=== PATIENT | female | born 1955 | race Caucasian/White ===

== ENCOUNTER 2017-03-20 19:21 | Emergency (ER) | payer OTHER ==
[2017-03-20] MEDS ORDERED: Albuterol/Ipratropium NEB.SOL* Albuterol 2.5 MG/Ipratropium 0.5 MG 3 ML INH ONE (19:41)
[2017-03-20] MEDS ORDERED: methylPREDNISolone 125 MG* 2 ML VIAL IV ONE (19:41)
[2017-03-20] MEDS ORDERED: NS 0.9% 1000 ML* 1,000 ML IV ONE (19:41)
[2017-03-20 19:58] LABS: Hematocrit 35 % (35-47); Hemoglobin 11.6 g/dl (12.0-16.0); Mean Corpuscular HGB Conc 33 g/dl (31-36); Mean Corpuscular Hemoglobin 31 pg (27-31); Mean Corpuscular Volume 94 fL (80-97); Mean Platelet Volume 9 um3 (7.4-10.4); Red Blood Count 3.75 10^6/ul (4.0-5.4); Red Cell Distribution Width 14 % (10.5-15); White Blood Count 13.7 10^3/ul (3.5-10.8)
--- NOTE | 2017-03-20 20:14 | RAD ---
HISTORY: Shortness of breath COMPARISONS: September 29, 2015 VIEWS: 4: Frontal dual-energy and lateral views of the chest. FINDINGS: CARDIOMEDIASTINAL SILHOUETTE: The cardiomediastinal silhouette is normal. GI: The gi are normal. PLEURA: The costophrenic angles are sharp. No pleural abnormalities are noted. LUNG PARENCHYMA: There is hyperinflation with flattening of the diaphragm and expansion of the AP diameter of the chest. ABDOMEN: The upper abdomen is clear. There is no subphrenic gas. BONES AND SOFT TISSUES: There is diffuse osteopenia. There are chronic compression deformities of the thoracic spine. The patient is status post anterior cervical fusion. OTHER: None. IMPRESSION: HYPERINFLATION, CONSISTENT WITH COPD. NO ACTIVE CARDIOPULMONARY DISEASE.
[2017-03-20 20:16] LABS: BUN/Creatinine Ratio 17.9 (8-20); Calcium 9.6 mg/dL (8.6-10.3); EGFR African American 140.6 (>60); EGFR Non-African American 109.3 (>60); Globulin 2.3 g/dL (2-4); Total Bilirubin 0.3 mg/dL (0.2-1.0); Total Protein 6.3 g/dL (6.4-8.9)
[2017-03-20] MEDS ORDERED: clonazePAM TAB(*) 0.5 MG PO ONE (20:17)
[2017-03-20] MEDS ORDERED: Ondansetron INJ* 2 MG/ML VIAL IV ONE (20:29)
--- NOTE | 2017-03-20 21:31 | ED ---
Matt Chowdhury Rebecca, scribed for Anmol Delgado MD on 03/20/17 at 1942 . Shortness of Breath - HPI Summary HPI Summary: Pt is a 61 y/o F BIBA who presents to ED c/o SOB. Pt reports intermittent, worsening SOB over the last few weeks characterized as dyspnea at rest. Treated with Mucinex SENIOR ACCOUNT CLERK. Pt reports that she was particularly busy today, which may have aggravated by. Sx alleviated by nothing. Pt reports subjective low-grade fever and associated diffuse chest pain characterized as stinging that is present when she experiences SOB. Pt states her "chest starts hurting because I get upset" and that the pain is currently moderate, ranked 6/10. Additionally notes hypertension SENIOR ACCOUNT CLERK, stating that her home nurse was taking her blood pressure tonight and saw it elevate up to about 150 systolic. Pt has been evaluated for these sx multiple times in [place] and saw her PCP earlier today. PMHx COPD and is on 2L O2 per Os at home. - History of Current Complaint Time Seen by Provider: 03/20/17 19:33 Hx Obtained From: Patient Onset/Duration: Still Present, Worse Since - A few weeks ago Timing: Intermittent Episodes Lasting: Current Severity: Moderate - 6/10 Dyspnea At: Rest Alleviating Factors: Nothing Associated Signs & Symptoms: Chest Pain Unrelated to Cough, Fever - Allergy/Home Medications Allergies/Adverse Reactions: Allergies Allergy/AdvReac Type Severity Reaction Status Date / Time Cephalexin [From Keflex] Allergy Intermediate Rash Verified 04/27/16 14:12 Vancomycin Allergy Intermediate Rash Verified 04/27/16 14:12 Bupropion [From Wellbutrin] AdvReac Severe Agitation Verified 04/27/16 14:12 Metronidazole AdvReac Severe See Comment Verified 04/27/16 14:12 Levofloxacin [From Levaquin] AdvReac Intermediate Diarrhea Verified 04/27/16 14: 12 Fluticasone AdvReac Mild See Comment Verified 04/27/16 14:12 [From Advair Diskus] Salmeterol AdvReac Mild See Comment Verified 04/27/16 14:12 [From Advair Diskus] Lorazepam [From Ativan] AdvReac Unknown HALLUCINATE Verified 04/27/16 14:12 PMH/Surg Hx/FS Hx/Imm Hx Endocrine/Hematology History: Denies: Hx Diabetes, Hx Thyroid Disease Cardiovascular History: Reports: Other Cardiovascular Problems/Disorders - "Reversed heart valves" per Pt. Denies: Hx Congestive Heart Failure, Hx Hypertension, Hx Pacemaker/ICD Respiratory History: Reports: Hx Asthma, Hx Chronic Bronchitis, Hx Chronic Obstructive Pulmonary Disease (COPD), Hx Pneumonia Denies: Other Respiratory Problems/Disorders GI History: Reports: Hx Gastroesophageal Reflux Disease, Other GI Disorders - hemorrhoids with warts Denies: Hx Ulcer History: Denies: Hx Renal Disease Musculoskeletal History: Reports: Hx Arthritis - BACK, KNEES AND ELBOWS, Hx Back Problems, Hx Osteoporosis, Hx Scoliosis, Other Musculoskeletal History - T7 COMPRESSION FRACTURE PER PATIENT Sensory History: Reports: Hx Cataracts - DASHA, Hx Contacts or Glasses Denies: Hx Hearing Aid Opthamlomology History: Reports: Hx Cataracts - DASHA, Hx Contacts or Glasses Neurological History: Reports: Hx Nerve Disease - NEUOPATHY, Hx Seizures - AGE 7 Denies: Other Neuro Impairments/Disorders Psychiatric History: Reports: Hx Anxiety - HX OF - NO MEDICATION FOR Denies: Hx Panic Disorder - Surgical History Surgery Procedure, Year, and Place: LAMINECTOMY 2012. CERVICAL SPINE FUSION- [facility] – [place]. TONSILECTOMY- A CHILD. APPENDECTOMY-AGE 16. GALL BLADDER REMOVAL- 1991. [id number]. SEPTOPLASTY [id number]. CYST REMOVED FROM THYROID- 2010-[facility] – [place]. TUBAL LIGATION-[facility] – [place]. CYST REMOVED FROM RT OVARY X2. Rt CATARACT Hx Anesthesia Reactions: No - Immunization History Date of Tetanus Vaccine: Unk Date of Influenza Vaccine: Fall 2014 Infectious Disease History: Reports: Hx Clostridium Difficile Denies: Hx Hepatitis, Hx Human Immunodeficiency Virus (HIV), Hx of Known/ Suspected MRSA - Family History Known Family History: Positive: Hypertension - Social History Alcohol Use: None Substance Use Type: Reports: None Hx Tobacco Use: Yes Smoking Status (MU): Light Every Day Tobacco Smoker Type: Cigarettes Amount Used/How Often: 2-3 cigs a day Length of Time of Smoking/Using Tobacco: 30+ yrs Have You Smoked in the Last Year: Yes Review of Systems Positive: Fever - subjective, low-grade fever, Other - Hypertensive SENIOR ACCOUNT CLERK Positive: Chest Pain - diffuse, intermittent stinging Positive: Shortness Of Breath All Other Systems Reviewed And Are Negative: Yes Physical Exam Triage Information Reviewed: Yes Vital Signs Reviewed: Yes Appearance: Positive: No Pain Distress, Thin, Cachectic Skin: Positive: Warm Head/Face: Positive: Normal Head/Face Inspection Eyes: Positive: BLADE ENT: Positive: Hearing grossly normal Neck: Positive: Supple Respiratory/Lung Sounds: Positive: Clear to Auscultation, Decreased Breath Sounds Cardiovascular: Positive: RRR Abdomen Description: Positive: Nontender, Soft Bowel Sounds: Positive: Present Musculoskeletal: Positive: Strength/ROM Intact Neurological: Positive: Alert, Oriented to Person Place, Time Psychiatric: Positive: Affect/Mood Appropriate Diagnostics - Laboratory Result Diagrams: 03/20/17 19:50 03/20/17 19:50 Lab Statement: Any lab studies that have been ordered have been reviewed, and results considered in the medical decision making process. - Radiology CXR Xray Interpretation: No Acute Changes - HYPERINFLATION, CONSISTENT WITH COPD. NO ACTIVE CARDIOPULMONARY DISEASE. ED physician reviewed this radiology report and agrees. Radiology Interpretation Completed By: Radiologist - EKG 2026 Cardiac Rate: Tachycardia - 101 BPM EKG Rhythm: Sinus Tachycardia EKG Interpretation: Normal Re-Evaluation - Re-Evaluation First Eval Re-Evaluation Time: 21:05 Change: Improved Comment: Pt's sx have improved. Course/Dx - Course Assessment/Plan: Pt is a 61 y/o F BIBA who presents to ED c/o SOB. Pt reports intermittent, worsening SOB over the last few weeks characterized as dyspnea at rest. Treated with Mucinex SENIOR ACCOUNT CLERK. Pt reports that she was particularly busy today , which may have aggravated by. Pt reports subjective low-grade fever and associated diffuse chest pain characterized as stinging that is present when she experiences SOB. Pt states her "chest starts hurting because I get upset." Additionally notes hypertension SENIOR ACCOUNT CLERK, stating that her home nurse was taking her blood pressure tonight and saw it elevate up to about 150 systolic. Pt has been evaluated for these sx multiple times in [place] and saw her PCP earlier today. PMHx COPD and is on 2L O2 per Os at home. CXR reveals HYPERINFLATION, CONSISTENT WITH COPD and NO ACTIVE CARDIOPULMONARY DISEASE. EKG reveals sinus rhythm. WBC of 13.7, troponin of 0.00. In the ED course, the pt received Duoneb , Klonopin, Solu-Medrol, Zofran and fluids which improved sx. She will be D/C to home with Dx of COPD excerbation and Rx for Prednisone with a follow up with her PCP. She understands and agrees. Elevated BP noted and advised to f/u with PCP. - Diagnoses Provider Diagnoses: COPD exacerbation Discharge - Discharge Plan Condition: Stable Disposition: HOME Prescriptions: predniSONE TAB* [Deltasone TAB*] 40 mg PO DAILY #8 tab Patient Education Materials: COPD (Chronic Obstructive Pulmonary Disease) (ED) Referrals: Harrison Meza MD [Primary Care Provider] - 3 Days The documentation as recorded by the Matt middlteon Rebecca accurately reflects the service I personally performed and the decisions made by me, Anmol Delgado MD.
[2017-03-20 22:11] VITALS: BP 132/64
== END 2017-03-20 22:11 | disposition home or self-care (01) ==
LOC: ED 19:21
DX: J44.1 Chronic obstructive pulmonary disease with (acute) exacerbation (principal); R06.02 Shortness of breath; R07.9 Chest pain, unspecified; R50.9 Fever, unspecified; F17.210 Nicotine dependence, cigarettes, uncomplicated
CPT/HCPCS: 36415; 71020; 80053; 83605; 84484; 85025; 93005; 94640; 96374; 96375; 99283; A9270-GY; J2930

== ENCOUNTER 2017-04-24 03:41 | Observation (INO) | payer OTHER ==
[2017-04-24] MEDS ORDERED: Diazepam TAB(*) 5 MG PO ONE (04:21)
[2017-04-24] MEDS ORDERED: HYDROcodone/ACETAMIN 5-325 MG* 1 TAB PO ONE (04:21)
[2017-04-24 05:20] LABS: Hematocrit 33 % (35-47); Hemoglobin 10.7 g/dl (12.0-16.0); Mean Corpuscular HGB Conc 32 g/dl (31-36); Mean Corpuscular Hemoglobin 31 pg (27-31); Mean Corpuscular Volume 95 fL (80-97); Mean Platelet Volume 10 um3 (7.4-10.4); Red Blood Count 3.49 10^6/ul (4.0-5.4); Red Cell Distribution Width 13 % (10.5-15); White Blood Count 26.9 10^3/ul (3.5-10.8)
[2017-04-24 05:25] LABS: Add Diff/Slide Review? Slide Review Added; Comments Flag Yes
[2017-04-24 05:32] LABS: Albumin 3.8 g/dL (3.2-5.2); BUN/Creatinine Ratio 81.3 (8-20); Calcium 9.2 mg/dL (8.6-10.3); EGFR Non-African American 130.6 (>60); Globulin 1.8 g/dL (2-4); Potassium 3.8 mmol/L (3.5-5.0); Total Bilirubin 0.3 mg/dL (0.2-1.0); Total Protein 5.6 g/dL (6.4-8.9)
[2017-04-24 05:35] LABS: Troponin I 0.01 ng/mL (<0.04)
--- NOTE | 2017-04-24 06:37 | ED ---
Matt Chowdhury Rebecca, scribed for Pati Melendez MD on 04/24/17 at 0350 . Shortness of Breath - HPI Summary HPI Summary: Pt is a 61 y/o F BIBA who presents to ED c/o SOB and anxiety. Pt reports her symptoms have been worsening recently with SOB characterized as dyspnea at rest. Sx aggravated and alleviated by nothing. Denies cough. Reports that she is unsure whether she is waking up in the middle of the night experiencing anxiety attacks or instances of SOB. Is on 3L O2 at home. Has been on Augmentin for the past month s/p oral surgery. PMHx COPD which has previously necessitated steroids. - History of Current Complaint Chief Complaint: EDShortnessOfBreath Time Seen by Provider: 04/24/17 03:45 Hx Obtained From: Patient Onset/Duration: Still Present Dyspnea At: Rest Aggrevating Factors: Nothing Alleviating Factors: Nothing - Allergy/Home Medications Allergies/Adverse Reactions: Allergies Allergy/AdvReac Type Severity Reaction Status Date / Time Cephalexin [From Keflex] Allergy Intermediate Rash Verified 04/24/17 04:37 Vancomycin Allergy Intermediate Rash Verified 04/24/17 04:37 Bupropion [From Wellbutrin] AdvReac Severe Agitation Verified 04/24/17 04:37 Metronidazole AdvReac Severe See Comment Verified 04/24/17 04:37 Levofloxacin [From Levaquin] AdvReac Intermediate Diarrhea Verified 04/24/17 04: 37 Fluticasone AdvReac Mild See Comment Verified 04/24/17 04:37 [From Advair Diskus] Salmeterol AdvReac Mild See Comment Verified 04/24/17 04:37 [From Advair Diskus] Lorazepam [From Ativan] AdvReac Unknown HALLUCINATE Verified 04/24/17 04:37 PMH/Surg Hx/FS Hx/Imm Hx Endocrine/Hematology History: Denies: Hx Diabetes, Hx Thyroid Disease Cardiovascular History: Reports: Other Cardiovascular Problems/Disorders - "Reversed heart valves" per Pt. Denies: Hx Congestive Heart Failure, Hx Hypertension, Hx Pacemaker/ICD Respiratory History: Reports: Hx Asthma, Hx Chronic Bronchitis, Hx Chronic Obstructive Pulmonary Disease (COPD), Hx Pneumonia Denies: Other Respiratory Problems/Disorders GI History: Reports: Hx Gastroesophageal Reflux Disease, Other GI Disorders - hemorrhoids with warts Denies: Hx Ulcer History: Denies: Hx Renal Disease Musculoskeletal History: Reports: Hx Arthritis - BACK, KNEES AND ELBOWS, Hx Back Problems, Hx Osteoporosis, Hx Scoliosis, Other Musculoskeletal History - T7 COMPRESSION FRACTURE PER PATIENT Sensory History: Reports: Hx Cataracts - DASHA, Hx Contacts or Glasses Denies: Hx Hearing Aid Opthamlomology History: Reports: Hx Cataracts - DASHA, Hx Contacts or Glasses Neurological History: Reports: Hx Nerve Disease - NEUOPATHY, Hx Seizures - AGE 7 Denies: Other Neuro Impairments/Disorders Psychiatric History: Reports: Hx Anxiety - HX OF - NO MEDICATION FOR Denies: Hx Panic Disorder - Surgical History Surgery Procedure, Year, and Place: LAMINECTOMY 2012. [place] [facility] [place] TONSILECTOMY- A CHILD. APPENDECTOMY-AGE 16. GALL BLADDER REMOVAL- 1991. [id number]. SEPTOPLASTY [id number]. CYST REMOVED FROM THYROID- 2010[place] [place] TUBAL LIGATION-[facility] [place]. CYST REMOVED FROM RT OVARY X2. Rt CATARACT Hx Anesthesia Reactions: No - Immunization History Date of Tetanus Vaccine: Unk Date of Influenza Vaccine: Fall 2014 Infectious Disease History: No Infectious Disease History: Reports: Hx Clostridium Difficile Denies: Hx Hepatitis, Hx Human Immunodeficiency Virus (HIV), Hx of Known/ Suspected MRSA, Traveled Outside the [place] in Last 30 Days - Family History Known Family History: Positive: Hypertension - Social History Alcohol Use: None Substance Use Type: Reports: None Hx Tobacco Use: Yes Smoking Status (MU): Light Every Day Tobacco Smoker Type: Cigarettes Amount Used/How Often: 2-3 cigs a day Length of Time of Smoking/Using Tobacco: 30+ yrs Have You Smoked in the Last Year: Yes Review of Systems Positive: Shortness Of Breath. Negative: Cough Positive: Anxious All Other Systems Reviewed And Are Negative: Yes Physical Exam - Summary Physical Exam Summary: General: Slightly cachectic, no pain distress Skin: Warm, Dry Eyes: EOMI, BLADE ENT: Pharynx normal, TMs normal Neck: Supple, nontender Respiratory: CTA, breath sounds present, slightly decreased in the bases, no rhonchi, no wheezes, no rales Cardiovascular: RRR, no murmur, no rub, no gallop Abdomen: Soft, nontender, Non-distended, no guarding, no rebound Bowel: Present Musculoskeletal: CHYNA, No edema, Erythema on the elbows with a slight amount of ulceration Neuro: Sensory/motor intact, A&Ox3, CN intact 2-12 Psych: Affect/mood appropriate Triage Information Reviewed: Yes Vital Signs On Initial Exam: Initial Vitals Temp Pulse Resp BP Pulse Ox 98.4 F 128 18 97/59 99 04/24/17 03:42 04/24/17 03:42 04/24/17 03:42 04/24/17 03:42 04/24/17 03:42 Vital Signs Reviewed: Yes Diagnostics - Vital Signs Vital Signs Temp Pulse Resp BP Pulse Ox 04/24/17 03:42 98.4 F 128 18 97/59 99 - Laboratory Lab Results: Lab Results 04/24/17 04/24/17 04/24/17 Range/Units 04:44 04:44 04:44 WBC 26.9 H (3.5-10.8) 10^3/ul RBC 3.49 L (4.0-5.4) 10^6/ul Hgb 10.7 L (12.0-16.0) g/dl Hct 33 L (35-47) % MCV 95 (80-97) fL MCH 31 (27-31) pg MCHC 32 (31-36) g/dl RDW 13 (10.5-15) % Plt Count 341 (150-450) 10^3/ul MPV 10 (7.4-10.4) um3 Neut % (Auto) 75.9 (38-83) % Lymph % (Auto) 17.2 L (25-47) % [place] % (Auto) 6.0 (1-9) % Eos % (Auto) 0.6 (0-6) % Baso % (Auto) 0.3 (0-2) % Absolute Neuts (auto) 20.4 H (1.5-7.7) 10^3/ul Absolute Lymphs (auto) 4.6 (1.0-4.8) 10^3/ul Absolute Monos (auto) 1.6 H (0-0.8) 10^3/ul Absolute Eos (auto) 0.2 (0-0.6) 10^3/ul Absolute Basos (auto) 0.1 (0-0.2) 10^3/ul Absolute Nucleated RBC 0.01 10^3/ul Nucleated RBC % 0 Sodium 140 (133-145) mmol/L Potassium 3.8 (3.5-5.0) mmol/L Chloride 96 L (101-111) mmol/L Carbon Dioxide 41 H* (22-32) mmol/L Anion Gap 3 (2-11) mmol/L BUN 39 H (6-24) mg/dL Creatinine 0.48 L (0.51-0.95) mg/dL Est GFR ( Amer) 168.0 (>60) Est GFR (Non-Af Amer) 130.6 (>60) BUN/Creatinine Ratio 81.3 H (8-20) Glucose 104 H (70-100) mg/dL Lactic Acid 0.9 (0.5-2.0) mmol/L Calcium 9.2 (8.6-10.3) mg/dL Total Bilirubin 0.30 (0.2-1.0) mg/dL AST 16 (13-39) U/L ALT 16 (7-52) U/L Alkaline Phosphatase 41 (34-104) U/L Troponin I 0.01 (<0.04) ng/mL Total Protein 5.6 L (6.4-8.9) g/dL Albumin 3.8 (3.2-5.2) g/dL Globulin 1.8 L (2-4) g/dL Albumin/Globulin Ratio 2.1 (1-3) Result Diagrams: 04/24/17 04:44 04/24/17 04:44 Lab Statement: Any lab studies that have been ordered have been reviewed, and results considered in the medical decision making process. - Radiology CXR Xray Interpretation: No Acute Changes - NO change from prior CXR Radiology Interpretation Completed By: ED Physician - EKG 0624 Cardiac Rate: Tachycardia - 115 bpm EKG Rhythm: Sinus Tachycardia EKG Interpretation: No Qs, no ST elevation Course/Dx - Course Course Of Treatment: pt came in with what she described as her increased anxiety although she admits to having increased sob over the last few days. her wbc is extremely high although she is not appearing toxic. Antibiotics that don 't react with her multiple allergies have been ordered and the case has been discussed with Dr. Rico for admission - Diagnoses Provider Diagnoses: Leukocytosis, COPD exacerbation - Physician Notifications Discussed Care of Patient With: Miller Rico Time Discussed With Above Provider: 05:49 Instructed by Provider To: Other - Accepts pt for admission Discharge - Discharge Plan Condition: Stable Disposition: ADMITTED TO [facility] Referrals: Harrison Meza MD [Primary Care Provider] - The documentation as recorded by the Matt middleton Rebecca accurately reflects the service I personally performed and the decisions made by me, Pati Melendez MD.
[2017-04-24 06:45] LABS: FIO2 32
[2017-04-24 07:19] LABS: PCO2 Arterial 79 mmHg (35-45)
--- NOTE | 2017-04-24 07:48 | RAD ---
HISTORY: Shortness of breath COMPARISONS: March 20, 2017 VIEWS: 4: Frontal dual-energy and lateral views of the chest. FINDINGS: CARDIOMEDIASTINAL SILHOUETTE: The cardiomediastinal silhouette is normal. GI: The gi are normal. PLEURA: The costophrenic angles are sharp. No pleural abnormalities are noted. LUNG PARENCHYMA: There is hyperinflation with flattening of the diaphragm and expansion of the AP diameter of the chest. ABDOMEN: The upper abdomen is clear. There is no subphrenic gas. BONES AND SOFT TISSUES: The patient is status post anterior cervical fusion. There is stable compression deformities of the midthoracic spine. OTHER: None. IMPRESSION: HYPERINFLATION, CONSISTENT WITH COPD. NO ACTIVE CARDIOPULMONARY DISEASE.
[2017-04-24] MEDS ORDERED: Acetaminophen TAB* 325 MG PO PRN (08:43)
[2017-04-24] MEDS ORDERED: Albuterol/Ipratropium NEB.SOL* Albuterol 2.5 MG/Ipratropium 0.5 MG 3 ML INH PRN (08:56)
[2017-04-24] MEDS ORDERED: Spiriva Inhaler DEVICE* 1 EACH DEVICE SCH (09:00)
[2017-04-24] MEDS: HYDROcodone/ACETAMIN 5-325 MG* 1 TAB PO PRN ×4 (09:38→22:59)
[2017-04-24] MEDS: Calcium Carbonate CHEW TAB* 500 MG (TUMS) PO PRN (12:31)
[2017-04-24] MEDS: Tiotropium CAP.INH* CAP.INH/18 MCG (USE ORDER SET !) INH SCH (12:32)
[2017-04-24] MEDS: METOPROLOL SUCCINATE 25 MG PO SCH (12:32)
[2017-04-24] MEDS: predniSONE TAB* 50 MG PO SCH (12:33)
[2017-04-24] MEDS: Heparin VIAL(*) 5000 UNITS/ML VIAL (FIVE THOUSAND) SUBCUT SCH ×2 (12:33→21:13)
[2017-04-24] MEDS: Mometasone/Formoter 200/5 MDI INH SCH ×2 (12:34→20:32)
[2017-04-24] MEDS: Sulfamethox/Trimethoprim DS 800/160* TAB PO SCH ×2 (12:34→21:13)
[2017-04-24] MEDS: Pregabalin CAP(*) 50 MG PO SCH ×3 (12:34→21:12)
[2017-04-24] MEDS: Aspirin Low Dose CHEW TAB* 81 MG PO SCH (12:35)
--- NOTE | 2017-04-24 14:12 | HP ---
CC: Dr. Madrigal * HISTORY AND PHYSICAL: DATE OF ADMISSION: 04/24/17. PRIMARY CARE PROVIDER: Dr. Madrigal. CHIEF COMPLAINT: Shortness of breath. HISTORY OF PRESENT ILLNESS: Ms. 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 The patient stated that it had been going on for several years now. Despite that she has aides at least 8 hours a day. At night, she gets anxious when she moves and she feels that he cannot breathe. She also stated that it occurs when her nose is blocked with secretions. She denies any recent problems with increasing cough. She denies purulent sputum production, no fevers. For the past week, the staff who are seeing the patient at home noted that the patient is usually using a tripod position supporting herself on her both elbows and when she does so, she develops pressure ulcers on her elbows. The right elbow pressure ulcer actually opened and there is a tiny area of 1 cm in diameter with surrounding erythema. In the left elbow, the skin is intact, but is definitely nonblanching erythema at this point. Patient presented in respiratory distress and severe anxiety attack in the emergency department. Her ABG shows chronic CO2 retention with normal pH. She is currently covered with 3 L of oxygen via nasal cannula after Valium was administered. She is going to be placed on nebulization with diagnosis of COPD exacerbation. PAST MEDICAL HISTORY: 1. Endstage COPD on oxygen 3 L. Patient was seen by Dr. Fry in consultation for palliation in 2016 in September and was offered palliative care and possibly hospice, but she refused. She still continues wants to be a full code. 2. History of degenerative disk disease. 3. History of osteoporosis. 4. History of painful peripheral neuropathy. 5. History of C-spine fusion. 6. History of laminectomies L3-S1 levels. 7. History of cataract surgery in the past. 8. History of . 9. History of nasal septoplasty. 10. History of tubal ligation. 11. Right ovarian cyst removal twice in the past. 12. Tonsillectomy. 13. Appendectomy. 14. Cholecystectomy. 15. History of benign thyroid cyst removal. MEDICATIONS AT HOME: Please note the patient did not bring a complete list, but from this what I was able to gather and includes: 1. Prednisone 5 mg daily. 2. Lyrica 50 mg 3 times a day. 3. Aspirin 81 mg daily. 4. Metoprolol XL 25 mg daily. 5. Captopril 12.5 mg daily. 6. Famotidine 10 mg daily. 7. Naproxen 375 mg b.i.d. p.r.n. 8. Diazepam 5 mg up to 4 times a day for anxiety. 9. Vicodin 5 mg every 4 hours for pain. 10. Omeprazole 20 mg daily. 11. In addition patient takes Spiriva inhaler once a day, 12. Symbicort inhaler twice a day. 13. Albuterol inhaler on a p.r.n. basis. 14. Patient stated she has not used nebulizer treatment since the nebulizer machine was broken and she just gt delivered a new one within the past couple of days and has not used it yet. ALLERGIES: Multiple and include ATIVAN cause hallucinations but patient has no problems with VALIUM, LEVAQUIN causes the patient to have C. diff, WELLBUTRIN makes "angry and mean," ADVAIR causes swelling of her throat. Please note that the patient had no problems with Symbicort. VANCOMYCIN is listed as an allergy with unknown reaction as well FLAGYL, FLUTICASONE and KEFLEX. Please note that once again takes Symbicort and prednisone without any problems. FAMILY HISTORY: Unobtainable; patient is adopted. SOCIAL HISTORY: The patient has a history of [id number] of smoking and smokes approximately 2 cigarettes a day. She denies any alcohol or drug use. 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 She has an aides at her home up to 8 hours a day. She ambulates with a roller walker. Her healthcare proxy is her friend Nakul Hinton, phone number [phone]. REVIEW OF SYSTEMS: Please see the history of present illness dictated at the time of admission. Patient stated then she gets short of breath and panicky with any exercise, also with changing position in her bed. The patient has a skin breakdown on her right elbow and she uses her elbow to tripod her position most of the day. She denied any cough. Patient complains of reflux problems and she uses Tums or famotidine for that. All the remaining 14 systems were reviewed with the patient and otherwise negative apart from the ones mentioned in the history of present illness and here. PHYSICAL EXAMINATION GENERAL APPEARANCE: This is a pleasant 61-year-old cachectic female who is no acute distress. Patient is alert, awake, and oriented x3. VITAL SIGNS: Blood pressure 107/62, heart rate of 116 and regular, respiratory rate 20, oxygen saturation 100% on 3 L oxygen nasal cannula, temperature of 98.4. HEENT: Head atraumatic, normocephalic. Eyes, pupils are equal, round, and reactive to light and accommodation. Oropharynx is clear. Mucosa dry. NECK: Supple. No JVD, no bruits bilaterally. RESPIRATORY: breath sounds throughout. But no wheezing. CARDIOVASCULAR: Regular rate and rhythm. No murmurs. ABDOMEN: Soft, nontender. Bowel sounds present in all 4 quadrants. EXTREMITIES: There is no edema, pulses are +2 bilaterally. No clubbing or cyanosis. SKIN: Patient has a small pressure ulcer of 1 cm a stage 2 on her right elbow. The left elbow area is nonblanchable erythema, pressure stage 1. Please also note that in the right elbow the patient has what appears to be localized skin infection without any streaking. The ulcer is not draining. PSYCHIATRIC EVALUATION: Patient right now is calm. She did receive Valium in the ED. There is no evidence of depression. She is pleasant, cooperative, and oriented x3. DIAGNOSTIC STUDIES/LABORATORY DATA: White blood cell count 26.9, hemoglobin 10.7, hematocrit 33 and platelets of 341. Sodium was 140, potassium 3.8, chloride 96, carbon dioxide 41, BUN 39, creatinine 0.48. Liver function tests are unremarkable. Troponin of 0.01. ABG showed pH of 7.360, pCO2 of 79, pO2 of 135. Portable chest x-ray showed hyperinflation and what was read by the radiologist as "consistent with COPD. No active cardiopulmonary disease. Hyperinflation." Patient's EKG showed sinus tachycardia with a heart rate of 115 beats per minute , right axis, no significant ST changes. ASSESSMENT AND PLAN: 1. The patient is going to be placed on observation for COPD exacerbation. Her prednisone is going to be increased from her daily dose of 5 to 50 a day. This is especially needed for approximately 5 days. I will also continue her Spiriva and Dulera when she is in the hospital. She can continue her Symbicort at home. I will also place her on DuoNeb as needed. At this point, I believe most of her issues with dyspnea was due to anxiety that caused her breathing problems at this point. Patient is aware that she has severe COPD. 2. In regard to patient's decubitus on her elbows. The right area is open. At this point, I do not believe that wound care would be necessary. Patient was counseled to stop using his tripod position and putting pressure on her elbows. I will prescribe her Bactrim for 5 days for localized skin infection on the right elbow; ask nursing staff to place DuoDERM on her both elbows every other day. I already discussed it with the patient's aides who are going to continue this care at home. 3. Anxiety. The patient is going to be continued on Valium. This is an ongoing problem. It appears that the patient is anxious when she is home alone. That is why her aide service had been increased recently and the patient is utilizing up to 8 hours of aide services a day. 4. Hypertension. Her metoprolol and captopril are going to be continued. 5. Painful peripheral neuropathy. Patient is going to continued on her Lyrica and Vicodin. 6. For DVT prophylaxis, the patient is going to be placed on heparin subcutaneously. 7. Code status is full. Her surrogate is a friend of patient as above. TIME SPENT: Approximately 72 minutes was spent on admission of this patient, more than half of that time was spent [id number] with the patient during the interview and physical exam. [id number]/[facility] #: [id number] CHARISSA
[2017-04-24] MEDS ORDERED: Tiotropium CAP.INH* CAP.INH/18 MCG (USE ORDER SET !) INH SCH (18:00)
[2017-04-24] MEDS: Polyethylene Glycol 3350* 17 GM PACKET PO SCH (18:21)
[2017-04-24] MEDS: Diazepam TAB(*) 5 MG PO PRN (18:55)
[2017-04-25] MEDS: HYDROcodone/ACETAMIN 5-325 MG* 1 TAB PO PRN ×5 (04:45→23:59)
[2017-04-25] MEDS: Heparin VIAL(*) 5000 UNITS/ML VIAL (FIVE THOUSAND) SUBCUT SCH ×3 (04:46→21:32)
[2017-04-25] MEDS ORDERED: OMEPRAZOLE 20 MG PO SCH (06:00)
[2017-04-25 07:03] LABS: Hematocrit 28 % (35-47); Mean Corpuscular HGB Conc 32 g/dl (31-36); Mean Corpuscular Hemoglobin 31 pg (27-31); Mean Corpuscular Volume 94 fL (80-97); Mean Platelet Volume 9 um3 (7.4-10.4); Red Blood Count 2.93 10^6/ul (4.0-5.4); Red Cell Distribution Width 13 % (10.5-15); White Blood Count 20.4 10^3/ul (3.5-10.8)
[2017-04-25 07:08] LABS: Comments Flag Yes
[2017-04-25] MEDS: Calcium Carbonate CHEW TAB* 500 MG (TUMS) PO PRN (07:13)
[2017-04-25 07:14] LABS: BUN/Creatinine Ratio 32.8 (8-20); Calcium 9.3 mg/dL (8.6-10.3); EGFR African American 120.5 (>60); EGFR Non-African American 93.7 (>60)
[2017-04-25] MEDS: Tiotropium CAP.INH* CAP.INH/18 MCG (USE ORDER SET !) INH SCH (08:20)
[2017-04-25] MEDS: METOPROLOL SUCCINATE 25 MG PO SCH ×2 (08:56→12:56)
[2017-04-25] MEDS: Aspirin Low Dose CHEW TAB* 81 MG PO SCH (08:57)
[2017-04-25] MEDS: Pregabalin CAP(*) 50 MG PO SCH ×3 (08:57→21:32)
[2017-04-25] MEDS: predniSONE TAB* 50 MG PO SCH (08:57)
[2017-04-25] MEDS: Sulfamethox/Trimethoprim DS 800/160* TAB PO SCH ×2 (08:57→20:16)
[2017-04-25] MEDS ORDERED: CAPTOPRIL 12.5 MG PO SCH (09:00)
[2017-04-25] MEDS: Diazepam TAB(*) 5 MG PO PRN ×3 (10:09→20:17)
[2017-04-25] MEDS: Mometasone/Formoter 200/5 MDI INH SCH ×3 (10:24→23:50)
[2017-04-25] MEDS ORDERED: Omeprazole CAP* 20 MG PO ONE (12:04)
--- NOTE | 2017-04-25 16:59 | PN ---
Subjective Date of Service: 04/25/17 Interval History: Pt feels well, but doesn't' want to go home today since she called off her aides for the day. She requested to be discharged in AM Objective Active Medications: Acetaminophen (Tylenol Tab*) 650 mg PO Q4H PRN PRN Reason: FEVER/PAIN Hydrocodone Bitart/Acetaminophen ([place] 5-325 Tab*) 1 tab PO Q4H PRN PRN Reason: PAIN Last Admin: 04/25/17 12:57 Dose: 1 tab Albuterol/Ipratropium (Duoneb (Albuterol 2.5 Mg/Ipratropium 0.5 Mg)) 1 neb INH Q4H PRN PRN Reason: SOB/WHEEZING Aspirin (Aspirin Low Dose Tab*) 81 mg PO DAILY [facility] Last Admin: 04/25/17 08:57 Dose: Not Given Calcium Carbonate (Tums*) 500 mg PO Q4H PRN PRN Reason: DISCOMFORT Last Admin: 04/25/17 07:13 Dose: 500 mg Device (Tiotropium Inhaler Device*) 1 each .SEE ORDER .USE w/ SPIRIVA CAPS [facility] Diazepam (Valium Tab(*)) 5 mg PO Q6H PRN PRN Reason: ANXIETY Last Admin: 04/25/17 10:11 Dose: 2.5 mg Heparin Sodium (Porcine) (Heparin Vial(*)) 5,000 units SUBCUT Q8HR [facility] Last Admin: 04/25/17 12:57 Dose: 5,000 units Metoprolol Succinate (Toprol Xl Tab*) 25 mg PO DAILY [facility] Last Admin: 04/25/17 12:56 Dose: 25 mg Mometasone Furoate/Formoterol Fumar (Dulera 200/5 Mdi*) 2 puff INH BID [facility] Last Admin: 04/25/17 10:24 Dose: Not Given Omeprazole (Prilosec Cap*) 40 mg PO DAILY@0600 [facility] Polyethylene Glycol/Electrolytes (Miralax*) 17 gm PO QPM [facility] Last Admin: 04/24/17 18:21 Dose: 17 gm Prednisone (Deltasone Tab*) 50 mg PO DAILY [facility] Last Admin: 04/25/17 08:57 Dose: 50 mg Pregabalin (Lyrica Cap(*)) 50 mg PO TID [facility] Last Admin: 04/25/17 12:57 Dose: 50 mg Tiotropium Mobile (Spiriva Cap.Inh*) 1 cap INH DAILY [facility] Last Admin: 04/25/17 08:20 Dose: 1 cap Trimethoprim/Sulfamethoxazole (Bactrim Ds 800/160 Tab*) 1 tab PO BID ISI Stop: 04/28/17 23:59 Last Admin: 04/25/17 08:57 Dose: 1 tab Vital Signs 04/24/17 04/24/17 04/24/17 18:22 18:55 19:02 Temperature 98.2 F Pulse Rate 121 Respiratory 18 16 20 Rate Blood Pressure 124/65 (mmHg) O2 Sat by Pulse 99 Oximetry 04/24/17 04/24/17 04/24/17 20:22 20:55 21:12 Temperature Pulse Rate Respiratory 20 20 20 Rate Blood Pressure (mmHg) O2 Sat by Pulse Oximetry 04/24/17 04/24/17 04/24/17 22:59 23:12 23:37 Temperature 98.4 F Pulse Rate 113 Respiratory 20 16 16 Rate Blood Pressure 118/103 (mmHg) O2 Sat by Pulse 99 Oximetry 04/25/17 04/25/17 04/25/17 04:45 04:56 06:45 Temperature 97.7 F Pulse Rate 116 Respiratory 20 16 18 Rate Blood Pressure 124/94 (mmHg) O2 Sat by Pulse 100 Oximetry 04/25/17 04/25/17 04/25/17 07:41 08:57 08:58 Temperature 98.4 F Pulse Rate 101 Respiratory 20 22 Rate Blood Pressure 107/70 92/68 (mmHg) O2 Sat by Pulse 100 Oximetry 04/25/17 04/25/17 04/25/17 09:00 09:02 10:11 Temperature Pulse Rate Respiratory 22 22 22 Rate Blood Pressure (mmHg) O2 Sat by Pulse Oximetry 04/25/17 04/25/17 04/25/17 10:57 11:02 12:11 Temperature Pulse Rate Respiratory 22 22 22 Rate Blood Pressure (mmHg) O2 Sat by Pulse Oximetry 04/25/17 04/25/17 04/25/17 12:47 12:57 14:57 Temperature 98.5 F Pulse Rate 125 Respiratory 18 22 22 Rate Blood Pressure 106/93 (mmHg) O2 Sat by Pulse 99 Oximetry Oxygen Devices in Use Now: Nasal Cannula - at 3l Appearance: 61 yo F in nAD, aAOx3 Eyes: No Scleral Icterus, PERRLA Ears/Nose/Mouth/Throat: NL Teeth, Lips, Gums, Mucous Membranes Moist Neck: NL Appearance and Movements; NL JVP, Trachea Midline Respiratory: Symmetrical Chest Expansion and Respiratory Effort, - - very distant breath sounds b/l , no wheezes Cardiovascular: NL Sounds; No Murmurs; No JVD, RRR Abdominal: NL Sounds; No Tenderness; No Distention Lymphatic: No Cervical Adenopathy, No Auricular Adenopathy Extremities: No Edema Skin: No Nodules or Sclerosis, - - b/l elbow erythema, small ulcer on R Neurological: Alert and Oriented x 3, NL Muscle Strength and Tone Result Diagrams: 04/25/17 06:50 04/25/17 06:50 Additional Lab and Data: Lab Results 04/24/17 04/24/17 04/24/17 Range/Units 04:44 04:44 04:44 WBC 26.9 H (3.5-10.8) 10^3/ul RBC 3.49 L (4.0-5.4) 10^6/ul Hgb 10.7 L (12.0-16.0) g/dl Hct 33 L (35-47) % MCV 95 (80-97) fL MCH 31 (27-31) pg MCHC 32 (31-36) g/dl RDW 13 (10.5-15) % Plt Count 341 (150-450) 10^3/ul MPV 10 (7.4-10.4) um3 Neut % (Auto) 75.9 (38-83) % Lymph % (Auto) 17.2 L (25-47) % [place] % (Auto) 6.0 (1-9) % Eos % (Auto) 0.6 (0-6) % Baso % (Auto) 0.3 (0-2) % Absolute Neuts (auto) 20.4 H (1.5-7.7) 10^3/ul Absolute Lymphs (auto) 4.6 (1.0-4.8) 10^3/ul Absolute Monos (auto) 1.6 H (0-0.8) 10^3/ul Absolute Eos (auto) 0.2 (0-0.6) 10^3/ul Absolute Basos (auto) 0.1 (0-0.2) 10^3/ul Absolute Nucleated RBC 0.01 10^3/ul Nucleated RBC % 0 Sodium 140 (133-145) mmol/L Potassium 3.8 (3.5-5.0) mmol/L Chloride 96 L (101-111) mmol/L Carbon Dioxide 41 H* (22-32) mmol/L Anion Gap 3 (2-11) mmol/L BUN 39 H (6-24) mg/dL Creatinine 0.48 L (0.51-0.95) mg/dL Est GFR ( Amer) 168.0 (>60) Est GFR (Non-Af Amer) 130.6 (>60) BUN/Creatinine Ratio 81.3 H (8-20) Glucose 104 H (70-100) mg/dL Lactic Acid 0.9 (0.5-2.0) mmol/L Calcium 9.2 (8.6-10.3) mg/dL Total Bilirubin 0.30 (0.2-1.0) mg/dL AST 16 (13-39) U/L ALT 16 (7-52) U/L Alkaline Phosphatase 41 (34-104) U/L Troponin I 0.01 (<0.04) ng/mL Total Protein 5.6 L (6.4-8.9) g/dL Albumin 3.8 (3.2-5.2) g/dL Globulin 1.8 L (2-4) g/dL Albumin/Globulin Ratio 2.1 (1-3) Assess/Plan/Problems-Billing Assessment: 61 yo F with severe anxiety and COPD presents with exacerbation - Patient Problems (1) COPD exacerbation Comment: The patient is stable today. She would like to go home in AM cont Prednisone and Bactrim (2) Anxiety Comment: - Associated with her dyspnea - as she has no cardiopulmonary reserve, it just "snowballs" her symptoms. - Continue Clonazepam PRN. (3) Tachycardia Comment: The patient states she chronically tachycardic. cont lopressor (4) Elbow abrasion Comment: due to pressure "sores"- R elbow has an opened area that appeared to be mildly infected at admission Improved on Bactrim (5) DVT prophylaxis Comment: - SQ heparin. Status and Disposition: OBV, planned d/c in AM
[2017-04-25] MEDS: Polyethylene Glycol 3350* 17 GM PACKET PO SCH (17:25)
[2017-04-26] MEDS: Heparin VIAL(*) 5000 UNITS/ML VIAL (FIVE THOUSAND) SUBCUT SCH (05:57)
[2017-04-26] MEDS ORDERED: Omeprazole CAP* 20 MG PO SCH (06:00)
[2017-04-26] MEDS: Mometasone/Formoter 200/5 MDI INH SCH (08:30)
[2017-04-26] MEDS: Tiotropium CAP.INH* CAP.INH/18 MCG (USE ORDER SET !) INH SCH (08:30)
[2017-04-26] MEDS: Sulfamethox/Trimethoprim DS 800/160* TAB PO SCH (09:28)
[2017-04-26] MEDS: HYDROcodone/ACETAMIN 5-325 MG* 1 TAB PO PRN (09:28)
[2017-04-26] MEDS: Calcium Carbonate CHEW TAB* 500 MG (TUMS) PO PRN (09:28)
[2017-04-26] MEDS: METOPROLOL SUCCINATE 25 MG PO SCH (09:28)
[2017-04-26] MEDS: Aspirin Low Dose CHEW TAB* 81 MG PO SCH (09:29)
[2017-04-26] MEDS: Pregabalin CAP(*) 50 MG PO SCH (09:29)
[2017-04-26] MEDS: predniSONE TAB* 50 MG PO SCH (09:29)
[2017-04-26 09:45] LABS: Hematocrit 25 % (35-47); Hemoglobin 8.2 g/dl (12.0-16.0); Mean Corpuscular HGB Conc 33 g/dl (31-36); Mean Corpuscular Hemoglobin 31 pg (27-31); Mean Corpuscular Volume 95 fL (80-97); Mean Platelet Volume 10 um3 (7.4-10.4); Red Blood Count 2.64 10^6/ul (4.0-5.4); Red Cell Distribution Width 13 % (10.5-15); White Blood Count 18.3 10^3/ul (3.5-10.8)
[2017-04-26 09:47] LABS: Comments Flag Yes
[2017-04-26 09:55] LABS: BUN/Creatinine Ratio 21.2 (8-20); Calcium 9.5 mg/dL (8.6-10.3); EGFR African American 116.3 (>60); EGFR Non-African American 90.5 (>60); Potassium 3.3 mmol/L (3.5-5.0)
[2017-04-26 12:12] VITALS: BP 109/54
--- NOTE | 2017-04-27 06:16 | DS ---
DISCHARGE SUMMARY: DATE OF ADMISSION: 04/24/17 DATE OF DISCHARGE: 04/26/17 PRIMARY CARE PROVIDER: Dr. Madrigal. DISCHARGE DIAGNOSES: 1. Chronic obstructive pulmonary disease exacerbation. 2. Recurrent anxiety attacks. 3. Right elbow decubitus with local infection. SECONDARY DIAGNOSES: 1. Severe oxygen-dependent chronic obstructive pulmonary disease on 3 L. 2. History of degenerative disk disease. 3. Osteoporosis. 4. Peripheral neuropathy. 5. C-spine fusion. 6. Laminectomy in the lumbar levels. 7. Cataract surgery in the past. 8. in the past. 9. History of nasal septoplasty. 10. Tubal ligation. 11. Right ovarian cyst removal twice in the past. 12. Tonsillectomy. 13. Appendectomy. 14. Cholecystectomy. 15. History of benign thyroid cyst removed. 16. History of chronic tachycardia. 17. Hypertension. MEDICATIONS AT DISCHARGE: Include: 1. Prednisone 50 mg daily for another 3 days and then continue 5 mg daily as previously taken. 2. Aspirin 81 mg daily. 3. Budesonide with formoterol 160/4.5 mcg 2 puffs b.i.d. 4. Zyrtec 10 mg daily. 5. Xopenex nebulizer on p.r.n. basis and inhaler on a p.r.n. basis. 6. Metoprolol succinate 25 mg daily. 7. Omeprazole 20 mg daily. 8. MiraLAX 17 g daily. 9. Lyrica 50 mg 3 times a day. 10. Bactrim DS 1 tablet p.o. b.i.d. for 5 days total, then stop. 11. Spiriva 1 inhalation daily. 12. Guaifenesin ER 600 mg b.i.d. p.r.n. 13. Vicodin 5 mg every 4 hours for pain. 14. Diazepam 5 mg up to 4 times a day for anxiety. The patient's captopril was discontinued since her systolic blood pressures were controlled on her metoprolol. The patient also had been on aspirin 81 mg daily. LABORATORY DATA AND STUDIES PERFORMED DURING THE HOSPITAL STAY: Included: On 04/26/17, white blood cell count of 18.3, hemoglobin of 8.2, hematocrit of 25, and platelets of 298. ABG on admission showed pH of 7.36, pCO2 of 79, pO2 of 135, bicarb of 37. On 04/26/17, sodium of 138, potassium 3.3, chloride 95, carbon dioxide 97, BUN 14, creatinine 0.66. Blood cultures obtained on admission were negative at the time of discharge. Portable chest x-ray, impression: "Hyperinflation consistent with COPD. No active cardiopulmonary disease." HOSPITALIZATION COURSE: Temi Martin is a 61-year-old female with a history of severe COPD who is using oxygen at 3 L continuously, who has history of severe anxiety and frequent chronic attacks. She basically feels better when someone is with her at all times and when she wakes up in the evening when her home aides are gone, she gets into a panic. She came in to the hospital on early in the morning with severe anxiety attacks and respiratory distress. Her ABG as above mentioned showed compensated chronic CO2 retention with normal pH. The patient stabilized very quickly after a dose of Valium. She was placed on overnight observation with diagnosis of COPD exacerbation and placed on prednisone at 50 mg daily. The patient also was noted to have superficial skin infection on the right elbow. She basically has a small decubitus ulcer on the right elbow, stage II due to that she uses her elbow to tripod herself most of the day. She was treated with Bactrim for a skin infection as well as for antibiotic coverage for COPD exacerbation. Her dose of prednisone was increased as mentioned above. She did very well overnight and she is going to be discharged back home with recommendation to stop her prednisone dose at 50 mg in approximately 3 days and continue Bactrim DS for another 5 days. She is also recommended to follow up with her primary care provider in approximately 4 to 7 days. PHYSICAL EXAMINATION: At the time of discharge, blood pressure is 109/54, heart rate of 113 and regular, respiratory rate of 16, oxygen saturation 100% on 3 L of oxygen nasal cannula, and temperature 98.2. General: The patient is a very pleasant 61-year-old female who is in no acute distress. Alert, awake, and oriented x3. HEENT: Head atraumatic, normocephalic. Eyes: Pupils are equal and reactive to light and accommodation. Oropharynx is clear. Mucosa moist. Neck: Supple. No JVD. No bruits bilaterally. Cardiovascular: Regular rate and rhythm. No murmur. Tachycardia. Respiratory: Very decreased breath sounds bilaterally. No wheezes. Abdomen: Soft, nontender. Bowel sounds are present in all 4 quadrants. Extremities: There is no edema. Pulses are +2 bilaterally. No clubbing or cyanosis. On evaluation of skin, the patient has stage I decubitus area on her left elbow and a stage II small decubitus ulcer on the right elbow, approximately 1 cm. The superficial infection that was present by now resolved. On neuro evaluation, speech is clear. Cranial nerves II through XII grossly intact. Motor strength is 5/5 bilaterally. Please note that this is a short summary of the patient's hospitalization. Please refer to further medical records for details. [id number] #: [id number] MTDD
== END 2017-04-26 13:15 | disposition home or self-care (01) ==
LOC: ED 03:41 → MED 08:43
PROVIDERS: ADMIT Internal Medicine; ATTEND Internal Medicine
DX: J44.1 Chronic obstructive pulmonary disease with (acute) exacerbation (principal); F41.9 Anxiety disorder, unspecified; L89.019 Pressure ulcer of right elbow, unspecified stage; D72.829 Elevated white blood cell count, unspecified; M81.0 Age-related osteoporosis without current pathological fracture; G62.89 Other specified polyneuropathies; Z98.1 Arthrodesis status; Z90.49 Acquired absence of other specified parts of digestive tract; I10 Essential (primary) hypertension; Z79.82 Long term (current) use of aspirin; Z79.899 Other long term (current) drug therapy
CPT/HCPCS: 36415; 36600; 71020; 80048; 80053; 82803; 83605; 84484; 85025; 87040; 93005; 94640; 99285; A9270-GY; G0378; J1644; J2543; J7512

== ENCOUNTER 2017-04-29 21:37 | Inpatient (IN) | payer OTHER ==
[2017-04-29 23:14] LABS: Hematocrit 25 % (35-47); Mean Corpuscular HGB Conc 33 g/dl (31-36); Mean Corpuscular Hemoglobin 32 pg (27-31); Mean Corpuscular Volume 97 fL (80-97); Mean Platelet Volume 9 um3 (7.4-10.4); Red Blood Count 2.55 10^6/ul (4.0-5.4); Red Cell Distribution Width 14 % (10.5-15); White Blood Count 18.8 10^3/ul (3.5-10.8)
[2017-04-29 23:15] LABS: Add Diff/Slide Review? Slide Review Added; Comments Flag Yes
[2017-04-29 23:32] LABS: ALT 24 U/L (7-52); AST 23 U/L (13-39); Albumin 3.8 g/dL (3.2-5.2); Alkaline Phosphatase 34 U/L (34-104); BUN/Creatinine Ratio 18.8 (8-20); Blood Urea Nitrogen 12 mg/dL (6-24); C Reactive Protein < 1.00 mg/L (< 5.00); Calcium 9.4 mg/dL (8.6-10.3); Chloride 95 mmol/L (101-111); EGFR African American 120.5 (>60); EGFR Non-African American 93.7 (>60); Glucose 145 mg/dL (70-100); Lipase 61 U/L (11.0-82.0); Potassium 3.7 mmol/L (3.5-5.0); Sodium 139 mmol/L (133-145); Total Protein 5.8 g/dL (6.4-8.9)
[2017-04-29 23:33] LABS: Troponin I 0.01 ng/mL (<0.04)
[2017-04-29 23:43] LABS: Anion Gap 3 mmol/L (2-11); CO2 Carbon Dioxide 41 mmol/L (22-32)
[2017-04-29 23:46] LABS: TSH (Thyroid Stimulating Horm) 3.37 mcIU/mL (0.34-5.60)
[2017-04-30] MEDS ORDERED: Iohexol 300* (CONTRAST) 10 ML SDV IV ONE (02:32)
[2017-04-30] MEDS: NS 0.9% 1000 ML* 1,000 ML IV SCH ×3 (04:44→19:57)
--- NOTE | 2017-04-30 05:55 | ED ---
Matt Chowdhury Rebecca, scribed for Harrison Castillo MD on 04/29/17 at 2346 . GI/ HPI - HPI Summary HPI Summary: Pt is a 61 y/o F BIBA who presents to ED c/o melena. Sx began 5 days ago with aout 4-5 stools per day that are black/green. Reports that there is not bright red blood with BM. Additionally c/o generalized weakness, fever, chills, rhinorrhea, SOB, intermittent abdominal bloating with associated abdominal and back pain. Denies sore throat, cough and congestion. PMhx chronic low back pain. Reports that diverticulitis sounds familiar, though she is unsure if she has a PMHx of it. PSHx appy, cholecystectomy. - History of Current Complaint Chief Complaint: EDGIBleed Time Seen by Provider: 04/29/17 23:26 Stated Complaint: WEAKNESS/RECTAL BLEEDING Hx Obtained From: Patient Onset/Duration: Started Days Ago - 5 days ago, Still Present Current Severity: Severe Pain Intensity: 8 Location of Pain: Diffuse - Abdominal and back pain Associated Signs and Symptoms: Positive: Blood w/Stool - Melena Aggravating Factor(s): Nothing Alleviating Factor(s): Nothing - Additional Pertinent History Primary Care Physician: [id number] - Allergy/Home Medications Allergies/Adverse Reactions: Allergies Allergy/AdvReac Type Severity Reaction Status Date / Time Cephalexin [From Keflex] Allergy Intermediate Rash Verified 04/24/17 04:37 Vancomycin Allergy Intermediate Rash Verified 04/24/17 04:37 Bupropion [From Wellbutrin] AdvReac Severe Agitation Verified 04/24/17 04:37 Metronidazole AdvReac Severe See Comment Verified 04/24/17 04:37 Levofloxacin [From Levaquin] AdvReac Intermediate Diarrhea Verified 04/24/17 04: 37 Fluticasone AdvReac Mild See Comment Verified 04/24/17 04:37 [From Advair Diskus] Salmeterol AdvReac Mild See Comment Verified 04/24/17 04:37 [From Advair Diskus] Lorazepam [From Ativan] AdvReac Unknown HALLUCINATE Verified 04/24/17 04:37 PMH/Surg Hx/FS Hx/Imm Hx Endocrine/Hematology History: Denies: Hx Diabetes, Hx Thyroid Disease Cardiovascular History: Reports: Other Cardiovascular Problems/Disorders - "Reversed heart valves" per Pt. Denies: Hx Congestive Heart Failure, Hx Hypertension, Hx Pacemaker/ICD Respiratory History: Reports: Hx Asthma, Hx Chronic Bronchitis, Hx Chronic Obstructive Pulmonary Disease (COPD), Hx Pneumonia Denies: Other Respiratory Problems/Disorders GI History: Reports: Hx Gastroesophageal Reflux Disease, Other GI Disorders - hemorrhoids with warts Denies: Hx Ulcer History: Denies: Hx Renal Disease Musculoskeletal History: Reports: Hx Arthritis - BACK, KNEES AND ELBOWS, Hx Back Problems, Hx Osteoporosis, Hx Scoliosis, Other Musculoskeletal History - T7 COMPRESSION FRACTURE PER PATIENT Sensory History: Reports: Hx Cataracts - DASHA, Hx Contacts or Glasses Denies: Hx Hearing Aid Opthamlomology History: Reports: Hx Cataracts - DASHA, Hx Contacts or Glasses Neurological History: Reports: Hx Nerve Disease - NEUOPATHY, Hx Seizures - AGE 7 Denies: Other Neuro Impairments/Disorders Psychiatric History: Reports: Hx Anxiety Denies: Hx Panic Disorder - Surgical History Surgery Procedure, Year, and Place: LAMINECTOMY 2012. CERVICAL SPINE FUSION- [facility] [place]. TONSILECTOMY- A CHILD. APPENDECTOMY-AGE 16. GALL BLADDER REMOVAL- 1991. [id number]. SEPTOPLASTY [id number]. CYST REMOVED FROM THYROID- 2010-[facility] [place]. TUBAL LIGATION-[facility] [place]. CYST REMOVED FROM RT OVARY X2. Rt CATARACT Hx Anesthesia Reactions: No - Immunization History Date of Tetanus Vaccine: Unk Date of Influenza Vaccine: Fall 2014 Infectious Disease History: No Infectious Disease History: Reports: Hx Clostridium Difficile Denies: Hx Hepatitis, Hx Human Immunodeficiency Virus (HIV), Hx of Known/ Suspected MRSA, Traveled Outside the [place] in Last 30 Days - Family History Known Family History: Positive: Hypertension - Social History Alcohol Use: None Substance Use Type: Reports: None Hx Tobacco Use: Yes Smoking Status (MU): Light Every Day Tobacco Smoker Type: Cigarettes Amount Used/How Often: 2-3 cigs a day Length of Time of Smoking/Using Tobacco: 30+ yrs Have You Smoked in the Last Year: Yes Review of Systems Positive: Fever, Chills Positive: Nasal Discharge, Other - NEGATIVE: congestion. Negative: Sore Throat Positive: Shortness Of Breath. Negative: Cough Positive: Abdominal Pain - Associated with bloating, Other - abdominal bloating Positive: other - Melena Positive: Other - Back pain All Other Systems Reviewed And Are Negative: Yes Physical Exam - Summary Physical Exam Summary: General: thing, no pain distress Skin: warm, color reflects adequate perfusion, dry Head: normal Eyes: EOMI, BLADE ENT: attila mucosa dry Neck: supple, nontender Respiratory: wheezes bilaterally, breath sounds present Cardiovascular: tachycardic Abdomen: soft, mild, diffuse tenderness, wors mago the left Bowel: hypoactive boewl sounds Musculoskeletal: normal, strength/ROM intact, no CVA tenderness, moves all extremities in a grossly normal fashion Neurological: normal, sensory/motor intact, A&O x3 Psychological: affect/mood appropriate Triage Information Reviewed: Yes Vital Signs On Initial Exam: Initial Vitals Temp Pulse Resp BP Pulse Ox 99.4 F 113 22 128/87 100 04/29/17 22:00 04/29/17 22:00 04/29/17 22:00 04/29/17 22:00 04/29/17 22:00 Vital Signs Reviewed: Yes - [place] Coma Scale Coma Scale Total: 15 Diagnostics - Vital Signs Vital Signs Temp Pulse Resp BP Pulse Ox 04/29/17 22:00 99.4 F 113 22 128/87 100 - Laboratory Lab Results: Lab Results 04/29/17 04/29/17 04/29/17 Range/Units 23:04 23:04 23:04 WBC (3.5-10.8) 10^3/ul RBC (4.0-5.4) 10^6/ul Hgb (12.0-16.0) g/dl Hct (35-47) % MCV (80-97) fL MCH (27-31) pg MCHC (31-36) g/dl RDW (10.5-15) % Plt Count (150-450) 10^3/ul MPV (7.4-10.4) um3 Neut % (Auto) (38-83) % Lymph % (Auto) (25-47) % [place] % (Auto) (1-9) % Eos % (Auto) (0-6) % Baso % (Auto) (0-2) % Absolute Neuts (auto) (1.5-7.7) 10^3/ul Absolute Lymphs (auto) (1.0-4.8) 10^3/ul Absolute Monos (auto) (0-0.8) 10^3/ul Absolute Eos (auto) (0-0.6) 10^3/ul Absolute Basos (auto) (0-0.2) 10^3/ul Absolute Nucleated RBC 10^3/ul Nucleated RBC % Sodium 139 (133-145) mmol/L Potassium 3.7 (3.5-5.0) mmol/L Chloride 95 L (101-111) mmol/L Carbon Dioxide Pending Anion Gap Pending BUN 12 (6-24) mg/dL Creatinine 0.64 (0.51-0.95) mg/dL Est GFR ( Amer) 120.5 (>60) Est GFR (Non-Af Amer) 93.7 (>60) BUN/Creatinine Ratio 18.8 (8-20) Glucose 145 H (70-100) mg/dL Lactic Acid (0.5-2.0) mmol/L Calcium 9.4 (8.6-10.3) mg/dL Total Bilirubin 0.10 L (0.2-1.0) mg/dL AST 23 (13-39) U/L ALT 24 (7-52) U/L Alkaline Phosphatase 34 (34-104) U/L Troponin I 0.01 (<0.04) ng/mL C-Reactive Protein < 1.00 (< 5.00) mg/L B-Natriuretic Peptide 53 ( - 100) pg/mL Total Protein 5.8 L (6.4-8.9) g/dL Albumin 3.8 (3.2-5.2) g/dL Globulin 2.0 (2-4) g/dL Albumin/Globulin Ratio 1.9 (1-3) Lipase 61 (11.0-82.0) U/L TSH Pending Blood Type AB Positive Antibody Screen Pending 04/29/17 04/29/17 Range/Units 23:04 23:04 WBC 18.8 H (3.5-10.8) 10^3/ul RBC 2.55 L (4.0-5.4) 10^6/ul Hgb 8.0 L (12.0-16.0) g/dl Hct 25 L (35-47) % MCV 97 (80-97) fL MCH 32 H (27-31) pg MCHC 33 (31-36) g/dl RDW 14 (10.5-15) % Plt Count 362 (150-450) 10^3/ul MPV 9 (7.4-10.4) um3 Neut % (Auto) 74.7 (38-83) % Lymph % (Auto) 17.6 L (25-47) % [place] % (Auto) 6.4 (1-9) % Eos % (Auto) 0.8 (0-6) % Baso % (Auto) 0.5 (0-2) % Absolute Neuts (auto) 14.1 H (1.5-7.7) 10^3/ul Absolute Lymphs (auto) 3.3 (1.0-4.8) 10^3/ul Absolute Monos (auto) 1.2 H (0-0.8) 10^3/ul Absolute Eos (auto) 0.1 (0-0.6) 10^3/ul Absolute Basos (auto) 0.1 (0-0.2) 10^3/ul Absolute Nucleated RBC 0.02 10^3/ul Nucleated RBC % 0.1 Sodium (133-145) mmol/L Potassium (3.5-5.0) mmol/L Chloride (101-111) mmol/L Carbon Dioxide Anion Gap BUN (6-24) mg/dL Creatinine (0.51-0.95) mg/dL Est GFR ( Amer) (>60) Est GFR (Non-Af Amer) (>60) BUN/Creatinine Ratio (8-20) Glucose (70-100) mg/dL Lactic Acid 0.9 (0.5-2.0) mmol/L Calcium (8.6-10.3) mg/dL Total Bilirubin (0.2-1.0) mg/dL AST (13-39) U/L ALT (7-52) U/L Alkaline Phosphatase (34-104) U/L Troponin I (<0.04) ng/mL C-Reactive Protein (< 5.00) mg/L B-Natriuretic Peptide ( - 100) pg/mL Total Protein (6.4-8.9) g/dL Albumin (3.2-5.2) g/dL Globulin (2-4) g/dL Albumin/Globulin Ratio (1-3) Lipase (11.0-82.0) U/L TSH Blood Type Antibody Screen Result Diagrams: 04/29/17 23:04 04/29/17 23:04 Lab Statement: Any lab studies that have been ordered have been reviewed, and results considered in the medical decision making process. - Radiology CXR Xray Interpretation: No Acute Changes - COPD, NAD otherwise Radiology Interpretation Completed By: ED Physician - CT CT Abd/Pel CT Interpretation: No Acute Changes - 1. There is no bowel obstructio ascites or free air. 2. No gross inflammatory findings. 3. Moderate stool filled colon. 4. Status post cholecystectomy. 5. Emphysema. 6. Bilateral renal cysts. Additional small low attenuatoin renal structures are too small tocharacterize. There is no hydronephrosis. Small righrt renal cortical calcification seen. ED physician reviewed this radiology report and agrees. CT Interpretation Completed By: Radiologist - EKG 0234 Cardiac Rate: NL - 97 bpm EKG Rhythm: Sinus Rhythm ST Segment: Non-Specific - Anterior ST elevation similar to EKG on 04/24/2017 Ectopy: None EKG Comparison: No Significant Change - Anterior ST elevation similar to EKG on 04/24/2017 Re-Evaluation - Re-Evaluation First Eval Re-Evaluation Time: 03:10 Comment: Rectal exam completed with nurse GIGU Course/Dx - Course Assessment/Plan: Patient medications reviewed. BP noted and advised to f/u with PCP. ADMIT HOSPITALIST. NO CRITICAL CARE TIME. - Diagnoses Provider Diagnoses: GI bleed, Abdominal pain - Physician Notifications Discussed Care Of Patient With: Devin Kumar Time Discussed With Above Provider: 05:21 Instructed by Provider To: Other - Accepts pt for admission. Discharge - Discharge Plan Condition: Stable Disposition: ADMITTED TO [facility] Referrals: Non Staff,Doctor [Primary Care Provider] - The documentation as recorded by the Matt middleton Rebecca accurately reflects the service I personally performed and the decisions made by me, Harrison Castillo MD.
[2017-04-30 07:07] LABS: Hematocrit 26 % (35-47); Hemoglobin 8.3 g/dl (12.0-16.0); Mean Corpuscular HGB Conc 32 g/dl (31-36); Mean Corpuscular Hemoglobin 31 pg (27-31); Mean Corpuscular Volume 96 fL (80-97); Mean Platelet Volume 10 um3 (7.4-10.4); Red Blood Count 2.68 10^6/ul (4.0-5.4); Red Cell Distribution Width 14 % (10.5-15); White Blood Count 18.7 10^3/ul (3.5-10.8)
[2017-04-30 07:08] LABS: Comments Flag Yes
[2017-04-30 07:24] LABS: Urine Bilirubin Negative (Negative); Urine Glucose Negative (Negative); Urine Nitrite Negative (Negative)
--- NOTE | 2017-04-30 07:24 | RAD ---
INDICATION: Shortness of breath and weakness. COMPARISON: Comparison is made with a prior study from April 24, 2017. TECHNIQUE: 2 portable views of the chest were obtained. FINDINGS: Cardiac and mediastinal contours appear to be within normal limits. The lungs are hyperinflated and clear. No pleural effusion is seen. IMPRESSION: FINDINGS CONSISTENT WITH COPD, NO EVIDENCE FOR ACUTE FINDING.
[2017-04-30] MEDS ORDERED: Levalbuterol 1.25MG/0.5ML NEB INH PRN (07:45)
[2017-04-30] MEDS ORDERED: Pantoprazole IV* 40 MG IV ONE (07:45)
--- NOTE | 2017-04-30 07:53 | RAD ---
INDICATION: Abdominal pain COMPARISON: CT October 23, 2009 TECHNIQUE: Axial source images were obtained from the hemidiaphragms to the symphysis pubis following administration of oral and intravenous contrast. 48 mL Omnipaque 300 was utilized. Coronal and sagittal reconstructed images were acquired. Lung bases: The lung bases demonstrate emphysematous change. Liver: The liver is normal in size. There are no masses. There is mild intrahepatic ductal dilatation most likely secondary to postcholecystectomy state. Gallbladder: Cholecystectomy. Spleen: The spleen is diminutive. There are no masses. Pancreas: There is no focal pancreatic mass or ductal dilatation. Adrenal glands: There is no evidence of adrenal mass. Kidneys: The kidneys are normal in size and position. There are prompt nephrograms and there is prompt excretion bilaterally. There are multiple renal cysts measuring up to 4 cm. These were present previously. There is a tiny right renal cortical calcification, unchanged. 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 Adenopathy: There is no evidence of adenopathy by size criteria. Fluid collections: There are no free or localized fluid collections. Vessels:There are atherosclerotic changes involving the aorta and iliac vessels. There is no focal aneurysm. The IVC appears normal. GI tract: There are no acute CT bowel findings. There is no obstruction. The stomach and small bowel appear normal. The lower GI tract is remarkable for significant retained stool. Pelvic organs: The uterus and adnexa appear normal Bladder: There are no bladder masses. Abdominal and pelvic soft tissues: The extraperitoneal abdominal and pelvic soft tissues appear normal.. Osseous structures: There is spondylitic change of the lumbar spine with a levoscoliosis. There are no acute bony findings. Other: None IMPRESSION: NO ACUTE CT FINDINGS. NO MASS OR INFLAMMATORY CHANGES. RETAINED STOOL. BILATERAL RENAL CYSTS.
[2017-04-30] MEDS ORDERED: Acetaminophen TAB* 325 MG PO PRN (07:58)
[2017-04-30] MEDS ORDERED: Metoprolol Succinate XL TAB* 25 MG PO SCH (09:00)
[2017-04-30] MEDS: Pantoprazole IV* 80 MG in NS 0.9% 250 ML* 250 ML IVPB SCH ×2 (10:34→19:57)
[2017-04-30] MEDS: Pregabalin CAP(*) 50 MG PO SCH ×3 (10:34→20:21)
[2017-04-30] MEDS: guaiFENesin ER TAB 600 MG PO SCH ×2 (10:34→20:21)
--- NOTE | 2017-04-30 11:38 | HP ---
CC: Dr. Mardigal HISTORY AND PHYSICAL: DATE OF ADMISSION: 04/30/17 TIME OF EVALUATION: 07:30 a.m. PRIMARY CARE PROVIDER: Dr. Madrigal. CHIEF COMPLAINT: "My stools are black." HISTORY OF PRESENT ILLNESS: Ms. Martin is a 61-year-old lady with a past medical history of advanced COPD, on home O2, osteoarthritis, osteoporosis, peripheral neuropathy, anxiety, right elbow decubitus, who presents to the emergency room with complaints of weakness and black stool. The patient was admitted to [facility] from 04/24/17 to 04/26/17 with COPD exacerbation. She states that on the day of discharge, she went to the bathroom and noticed black stools and she was discharged home and continued to have black stools intermittently with brown stools. She denies abdominal pain, but did state she had anorexia and she also had intense postprandial fullness that severely limited her p.o. intake. She was seen by her primary care provider and advised to come to the emergency room as she was found to have a decrease in her H and H. In the emergency room, she was found to have a hemoglobin of 8 and stool guaiac was positive and for that reason, the hospitalist service was consulted. The patient states that her shortness of breath is much improved at this time. PAST MEDICAL HISTORY: 1. Advanced COPD, on home oxygen, status post recent admission for COPD exacerbation, discharged on steroids. 2. Severe anxiety. 3. Right elbow decubitus. 4. DJD. 5. Osteoporosis. 6. Peripheral neuropathy. 7. Hypertension. 8. Chronic tachycardia. PAST SURGICAL HISTORY: 1. Status post C-spine fusion. 2. Status post lumbar laminectomy. 3. Status post cataract surgery. 4. Status post . 5. Status post nasal septoplasty. 6. Status post tubal ligation. 7. Status post right ovarian cyst resection. 8. Status post tonsillectomy. 9. Status post appendectomy. 10. Status post cholecystectomy. 11. Status post benign thyroid cyst resection. MEDICATIONS: Medication list is not yet available at this time, but when she was discharged 4 days ago, she went home on: 1. Prednisone taper. 2. Aspirin 81 mg daily. 3. Budesonide with formoterol 160/4.5 mcg 2 puffs b.i.d. 4. Zyrtec 10 mg p.o. daily. 5. Xopenex nebulizer on a p.r.n. basis. 6. Metoprolol succinate 25 mg daily. 7. Omeprazole 20 mg p.o. daily. 8. MiraLAX 17 g daily. 9. Lyrica 50 mg p.o. t.i.d. 10. Bactrim DS 1 tablet p.o. b.i.d. for 5 more days. 11. Spiriva 1 capsule inhaled daily. 12. Guaifenesin ER 600 mg p.o. b.i.d. as needed for cough. 13. Vicodin 5 mg q. 4 hours p.r.n. pain. 14. Diazepam 5 mg q.i.d. as needed for anxiety. 15. Aspirin 81 mg p.o. daily. ALLERGIES: Multiple to CEPHALEXIN, VANCOMYCIN, BUPROPION, METRONIDAZOLE, LEVOFLOXACIN, FLUTICASONE, SALMETEROL, and LORAZEPAM. FAMILY HISTORY: The patient is adopted and he is not aware of anything of her family history. SOCIAL HISTORY: The patient has a 49-jnsa-n-year history of smoking and she is still smoking 1 to 2 cigarettes a day. No history of alcohol or drug abuse. Surrogate decision maker is her son, Devin Martin, phone number is [phone]. REVIEW OF SYSTEMS: A 14-point review of systems was performed and all the pertinent negative and positive findings are in the HPI. PHYSICAL EXAMINATION GENERAL: The patient is a pleasant, cachectic, elderly lady that appears older than stated age, sitting up in the ED stretcher, in no acute distress. VITAL SIGNS: Temperature 99.4, heart rate is 113, respiratory rate is 22, oxygen saturation is 100% on room air, blood pressure is 128/87. HEENT: Pupils are equal. Pale mucous membranes. CVS: Normal S1 and S2. Regular rate and rhythm. CHEST: Breath sounds present bilaterally, decreased with no added sounds. ABDOMEN: Soft, nontender, bowel sounds present. EXTREMITIES: No edema. She has a clean dressing to her right elbow. NEURO: She is alert, awake, oriented x3. Able to move all 4 extremities. LABORATORY/IMAGING DATA: The patient had a CBC that showed WBC of 18.8, hemoglobin of 8, hematocrit of 25, platelets of 362, and this was repeated at 6: 30 a.m. and her hemoglobin was 8.3. INR was 0.89. Chemistry showed a sodium of 139, potassium 3.7, chloride of 95, bicarb of 41, BUN of 12, creatinine of 0.64, glucose of 145, lactic acid 0.9, calcium of 9.4. LFTs are normal. BNP is 53. TSH is 3.3. Urinalysis was negative. CT of the abdomen and pelvis showed no acute CT findings. No mass or inflammatory changes, only retained stool and bilateral renal cysts. Chest x-ray shows findings consistent with COPD, but no evidence for acute finding. EKG done on 04/30/17 at 2:34 a.m. shows sinus rhythm at 97 beats per minute with no significant ST-T changes. No significant change when compared to her prior EKG from 04/24/17. ASSESSMENT AND PLAN: Ms. Martin is a 61-year-old lady with a past medical history of advanced chronic obstructive pulmonary disease, on home O2, severe anxiety, right elbow decubitus, degenerative joint disease, chronic pain, who presents to the emergency room with complaints of weakness and black stool, found to be anemic, likely secondary to an upper gastrointestinal bleed. 1. Upper gastrointestinal bleed. The patient is on aspirin as outpatient and she was recently started on higher dose prednisone. Although she is on a PPI as outpatient, her presentation is compatible with an upper gastrointestinal bleed. Her BUN is within normal limits, but the patient is cachectic with a BMI of 15, so I believe this "normal" BUN is actually high for her. She will be admitted to the telemetry floor and she will be started on a Protonix drip and a GI consultation will be requested. She does have advanced chronic obstructive pulmonary disease, but at this point her chronic obstructive pulmonary disease appears to be stable. The patient states that she had EGD with colonoscopy many years ago and her EGD had shown only gastritis and her colonoscopy had shown warts and polyps, but she was not bleeding at that time. 2. Blood loss anemia. We are going to monitor her H and H at this point with a hemoglobin of 8. She does not require blood transfusion. 3. Chronic obstructive pulmonary disease is stable at this time. We will continue bronchodilators. Systemic steroids are on hold at this point. 4. Leukocytosis. I suspect this is secondary to steroids. She does not appear to be infected at this time. 5. DVT prophylaxis. The patient has a score of 3 on the DVT Prophylaxis Risk Assessment Guide, but pharmacological prophylaxis is contraindicated in the setting of bleeding. The patient will have SCDs. 6. Code status is full. TIME SPENT: Approximately 60 minutes was spent with the patient interview, medical record review, physical examination to complete the admission. Approximately half of this time was spent [id number] with the patient in coordination of care. [id number]/[facility] #: [id number] CHARISSA
[2017-04-30] MEDS: Mometasone/Formoter 200/5 MDI INH SCH ×3 (12:03→20:28)
[2017-04-30] MEDS: HYDROcodone/ACETAMIN 5-325 MG* 1 TAB PO PRN ×3 (12:07→20:21)
[2017-04-30] MEDS: Spiriva Inhaler DEVICE* 1 EACH DEVICE INH ONE (14:07)
[2017-04-30] MEDS: Tiotropium CAP.INH* CAP.INH/18 MCG (USE ORDER SET !) INH SCH (14:07)
[2017-04-30 14:53] LABS: Hematocrit 23 % (35-47); Hemoglobin 7.2 g/dl (12.0-16.0)
[2017-04-30] MEDS ORDERED: Famotidine IV* 10 MG/ML 2 ML (20 mg) IV SLOW PU ONE (17:30)
[2017-04-30] MEDS ORDERED: methylPREDNISolone 125 MG* 2 ML VIAL IV ONE (17:30)
[2017-04-30] MEDS ORDERED: diPHENhydraMINE IV* 50 MG/ML 1 ml VIAL (BENADRYL) SLOW PUSH ONE (17:30)
[2017-04-30] MEDS ORDERED: Polyethylene Glycol 3350* 17 GM PACKET PO SCH (18:00)
--- NOTE | 2017-04-30 22:18 | CONS ---
CC: Ira Moreno MD; Dr. Madrigal * CONSULTATION REPORT: DATE OF CONSULT: 04/30/17 TIME OF EVALUATION: 10 a.m. REASON FOR CONSULTATION: Melena. HISTORY OF PRESENT ILLNESS: Ms. Martin is a 61-year-old female with past medical history significant for severe COPD on home oxygen, peripheral neuropathy, anxiety who presented to the emergency room with complaints of dark stools as well as weakness. The patient was recently admitted approximately 1 week ago with COPD exacerbation and was subsequently discharged. Since discharge approximately a week ago, she reports that she has been seeing black dark stools daily up to 4 to 5 bouts a day without blood. She denies taking any new medications or NSAIDs. She was admitted to the medical floor today and was noted to have a hemoglobin drop to 7.2 today. She reports that over the past week she has had some brown stools intermittently and has had a workup for her GI bleeding in the past and she admits to being told that she had peptic ulcer disease. PAST MEDICAL HISTORY: Severe COPD, on home oxygen, was discharged on prednisone ; significant osteoporosis; peripheral neuropathy; hypertension; tachycardia. PAST SURGICAL HISTORY: She has had C-spine fusion, lumbar laminectomy, C- section, nasal septoplasty, tubal ligation, ovarian cyst resection, cholecystectomy, appendectomy, tonsillectomy. MEDICATIONS: Medication list is not available, but she was previously on: 1. Prednisone. 2. Aspirin 81 mg daily. 3. Budesonide with formoterol 160/4.5 mcg 2 puffs b.i.d. 4. Zyrtec 10 mg p.o. daily. 5. Xopenex p.r.n. 6. Metoprolol 25 mg daily. 7. Omeprazole 20 mg daily. 8. MiraLAX 17 g daily. 9. Lyrica 50 mg t.i.d. 10. Bactrim Double Strength 1 tablet b.i.d. for 5 days. 11. Spiriva 1 capsule daily. 12. Aspirin 81 mg. 13. Vicodin 5 mg q.4 hours p.r.n. 14. Diazepam 5 mg 4 times a day as needed for anxiety. ALLERGIES: She has multiple allergies including CEPHALEXIN, VANCOMYCIN, BUPROPION, METRONIDAZOLE, LEVOFLOXACIN, FLUTICASONE, SALMETEROL, and LORAZEPAM. PHYSICAL EXAM: Vital Signs: Temperature 98.5, heart rate 106, respiration rate 20, saturation 100% on 4 L, blood pressure 130/72. General: Chronically ill appearing female sitting in tripod with obvious respiratory distress but able to speak 1 to 2-word sentences. HEENT: Anicteric sclerae. Pale conjunctivae. Chest: Distant breath sounds bilaterally with prolonged expiratory wheezes and phase. Cardiovascular: Tachycardic. S1, S2. No rubs or murmurs heard. Abdomen: Soft, nondistended, nontender throughout. Normoactive bowel sounds. Extremities: Cachectic. No lower extremity edema or rashes. Neuro: Grossly intact. No focal deficits that were obvious. DIAGNOSTIC STUDIES/LAB DATA: WBC is 18.7; hemoglobin 8.3, repeat today was 7.2 ; platelet count 347,000. Coagulation: INR 0.89. Chemistry: Sodium 139, potassium 3.7, chloride 95, bicarbonate 41, BUN 12, creatinine 0.64, glucose 145 , total bilirubin 0.1, AST 23, ALT 24, alkaline phosphatase 34, albumin 3.8. TSH 3.3. CRP normal. Troponin negative. Lactic acid normal. IMPRESSION: This is a 61-year-old female with severe chronic obstructive pulmonary disease, admitted for presumed gastrointestinal bleeding. Hemoglobin noted to be 7.2 today concerning for gastrointestinal bleeding. 1. Gastrointestinal bleed. Etiology of gastrointestinal bleeding is unclear at this time but could possibly include peptic ulcer disease, Dieulafoy's lesion , arteriovenous malformations, or multifactorial given the patient has multiple comorbidities and may have some evidence of anemia of chronic disease. For now , I would not pursue an endoscopic evaluation given the patient's severe pulmonary status. I would empirically treat for peptic ulcer disease with high- dose PPI giving IV PPI twice daily, 40 mg pantoprazole b.i.d. is preferable. If the patient were to develop overt hematochezia or hematemesis, please notify us as we would pursue endoscopic therapy in that setting as the patient would likely need anesthesia assistance to go through with the procedure. 2. Maintain 2 large-bore IVs, type and screen, and transfuse if hemoglobin is less than 7. 3. Check H and H q.6 hours and check CMP daily. [id number]/[facility] #: [id number] [facility]
[2017-05-01] MEDS: NS 0.9% 1000 ML* 1,000 ML IV SCH (02:58)
[2017-05-01] MEDS: HYDROcodone/ACETAMIN 5-325 MG* 1 TAB PO PRN ×3 (05:00→22:57)
[2017-05-01 06:16] LABS: BUN/Creatinine Ratio 8.8 (8-20); Calcium 8.5 mg/dL (8.6-10.3); EGFR African American 137.8 (>60); EGFR Non-African American 107.1 (>60)
[2017-05-01 06:32] LABS: Comments Flag Yes; Hematocrit 20 % (35-47); Mean Corpuscular HGB Conc 32 g/dl (31-36); Mean Corpuscular Hemoglobin 31 pg (27-31); Mean Corpuscular Volume 98 fL (80-97); Mean Platelet Volume 10 um3 (7.4-10.4); Red Blood Count 2.03 10^6/ul (4.0-5.4); Red Cell Distribution Width 14 % (10.5-15); White Blood Count 11.2 10^3/ul (3.5-10.8)
[2017-05-01 06:38] LABS: Add Diff/Slide Review? Slide Review Added; Hemoglobin 6.4 g/dl (12.0-16.0)
[2017-05-01 07:03] LABS: Basophilic Stippling 2+
[2017-05-01 07:04] LABS: Spherocytes 2+
[2017-05-01] MEDS ORDERED: NS 0.9% 1000 ML* 1,000 ML IV SCH (07:19)
[2017-05-01] MEDS: Pregabalin CAP(*) 50 MG PO SCH ×3 (07:57→22:52)
[2017-05-01] MEDS: Tiotropium CAP.INH* CAP.INH/18 MCG (USE ORDER SET !) INH SCH (07:58)
[2017-05-01] MEDS: Metoprolol Succinate XL TAB* 25 MG PO SCH (07:58)
[2017-05-01] MEDS: guaiFENesin ER TAB 600 MG PO SCH ×2 (07:58→22:52)
[2017-05-01] MEDS: Mometasone/Formoter 200/5 MDI INH SCH (08:08)
[2017-05-01 09:29] LABS: Hematocrit 22 % (35-47)
[2017-05-01] MEDS: Pantoprazole IV* 80 MG in NS 0.9% 250 ML* 250 ML IVPB SCH ×3 (10:06→23:36)
[2017-05-01] MEDS: Spiriva Inhaler DEVICE* 1 EACH DEVICE INH ONE (10:06)
[2017-05-01] MEDS ORDERED: Furosemide IV* 10 MG/ML 2 ML VIAL (20 MG) IV SLOW PU ONE ×2 (11:00→15:00)
[2017-05-01] MEDS: Diazepam TAB(*) 5 MG PO PRN (11:52)
[2017-05-01] MEDS: predniSONE TAB* 5 MG PO SCH (14:55)
[2017-05-01] MEDS: Fluticasone NASAL SPRAY 50MCG* 16 gm SPRAY BTL BOTH NARES SCH (15:08)
--- NOTE | 2017-05-01 15:48 | CONS ---
CC: Dr. Madrigal; QUITA Arnold * PALLIATIVE CARE CONSULTATION REPORT: DATE OF CONSULTATION: 05/01/17 PRIMARY CARE PHYSICIAN: Dr. Madrigal. REFERRING PHYSICIAN: QUITA Arnold HISTORY OF PRESENT ILLNESS: This is a 61-year-old female with a past medical history of end-stage COPD, on 3 L continuous oxygen, who presented to the emergency room with black stools on 04/30/17. The patient states she recently was admitted at the hospital from 02/21/17 to 02/24/17 with increase on her prednisone at that time from her baseline of 5 and since then she has developed black tarry stools. Also, of note, she is still actively smoking 1 to 2 cigarettes every now and then. On admission, the patient was noted to have a decline in her H and H and the patient is currently receiving blood. She did have a GI consultation done yesterday who felt that the etiology was unclear, but most likely an upper GI bleed. They did not recommend endoscopy due to the patient's severe pulmonary status and recommended empiric treatment with high dose PPI, and that if she does need to get an EGD done, then she would need to go through general anesthesia. I spoke with the patient at length regarding her baseline clinical status at home. She states her breathing is horrible. She states she was on hospice in the past and then she got better and really did like hospice, but she felt like their goal was not to get her better. She does not follow a delivery man. She had significant pneumonia back in May and was down to 62 pounds. She states she has gained weight back to 80 pounds, but her normal weight is around 100 to 110 pounds. She is normally on 3 L of oxygen at home. No nausea, vomiting. No abdominal pain. She has a significant amount of lower extremity pain and bilateral feet pain. She also has a lot of issues with bloating. She does not feel that her breathing has improved since her admission, but her biggest concern is black tarry stools. We discussed at length that she is eligible for hospice with a principal diagnosis of end-stage COPD and secondary diagnosis of a GI bleed. She does have a lot of services at home and her son lives with her as well and she is interested in having a hospice come on to her house to keep her at home and keep her comfortable, but also to help improve her symptoms. We also discussed her code status at length and she said she needed to think about it and was not ready to make a commitment to be a DNR/DNI. Otherwise, remaining review of systems is negative. PAST MEDICAL HISTORY: 1. End-stage COPD, on 3 L of oxygen. 2. Recent admission for a COPD exacerbation. 3. Severe anxiety. 4. Right elbow decubitus. 5. History of DJD. 6. Osteoporosis. 7. Peripheral neuropathy. 8. Hypertension. 9. Chronic tachycardia. PAST SURGICAL HISTORY: 1. Right ovarian cyst resection. 2. Status post tonsillectomy. 3. Status post appendectomy. 4. Status post cholecystectomy. 5. Status post benign thyroid cyst resection. MEDICATIONS: Inpatient medications: 1. Tylenol 650 mg every 6 hours as needed. 2. Diazepam 5 mg p.o. 4 times a day as needed. 3. Famotidine 40 mg IV daily. 4. 2 sprays both nares. 5. Lasix 20 mg IV. 6. Hydrocodone/acetaminophen 1 tab p.o. q.4 hours as needed. 7. Levalbuterol q.4 hours as needed. 8. Metoprolol succinate 25 mg p.o. daily. 9. Mometasone and formoterol 2 puffs inhaled b.i.d. 10. Pantoprazole drip. 11. MiraLAX 17 g daily. 12. Pregabalin 50 mg p.o. t.i.d. 13. Compazine 5 mg IV q.6 hours as needed. 14. Spiriva. 15. Bactrim 1 tab p.o. b.i.d. 16. Guaifenesin 600 mg p.o. b.i.d. ALLERGIES: KEFLEX, VANCOMYCIN, BUPROPION, METRONIDAZOLE, LEVOFLOXACIN, FLUTICASONE, SALMETEROL, and LORAZEPAM. SOCIAL HISTORY: As mentioned, the patient lives at home with her son, Devin Martin who is her healthcare proxy. She has a significant smoking history and is still smoking 1 to 2 cigarettes every few days. No alcohol or illicit drug use. Code status, currently is a full code. We would discuss MOLST form at length and will be readdressed. FAMILY HISTORY: The patient is adopted. REVIEW OF SYSTEMS: 14-point review of systems was reviewed. All pertinent negatives and positives as mentioned in the HPI, otherwise negative. PHYSICAL EXAM: Vitals: Temp 98.9, pulse rate 109, respiratory rate 22, oxygen saturation 100% on 4 L, and blood pressure 110/60. General: Frail, elderly female in some mild respiratory distress and with conversational dyspnea as well. HEENT: Head, normocephalic. Pupils are equal and reactive, anicteric. Oropharynx, mucous membranes are moist. Neck is supple. No lymphadenopathy. Cardiac: Tachycardic. Soft systolic murmur heard throughout. Respiratory: Increased work of breathing. Poor aeration. Prolonged expiratory phase. No appreciable wheezing, rhonchi, or rales. Abdomen: Soft, nontender, nondistended. Extremities: The patient with upper and lower extremity clubbing. No edema. Neurological: Alert and oriented x3. No focal neurological deficits. Derm: The patient noted with inferior eyelid swelling, edema. LABORATORY DATA: White count 11.2, hemoglobin 7, hematocrit 22, and platelets 291. INR 0.89. Sodium 138, potassium 4, chloride 102, bicarb 32, BUN 5, creatinine 0.57. Findings consistent with COPD, no acute finding. ASSESSMENT AND PLAN: This is a 61-year-old female with a past medical history of end-stage chronic obstructive pulmonary disease, still currently smoking, who presents with black tarry stools, found to have most likely an upper gastrointestinal bleed who is not a candidate for EGD at this time. Based on her end-stage chronic obstructive pulmonary disease, the patient is eligible for hospice with a secondary diagnosis of a gastrointestinal bleed. She has been on hospice before in the past and she is interested in going back home with hospice. She still is undecided about her code status. We talked about this at length and I recommended readdressing this with her. We spoke about talking to her family members as well. The patient did state that she is on chronic prednisone therapy of 5 mg. Although this will exacerbate her GI bleed , I would recommend continuing this to avoid renal crisis. She states that her pain is managed currently at this time with her [place], we will continue doing that. I also changed her MiraLAX to as needed in the setting of several black tarry stools. Thank you for this consultation. I will follow along with you. PATIENT TIME: Greater than 90 minutes was spent doing this consultation, more than half the time spent in direct patient contact. [id number]/[facility] #: [id number] CHARISSA
--- NOTE | 2017-05-01 17:33 | PN ---
Subjective Date of Service: 05/01/17 Interval History: Patient states she does not feel good, but has no acute complaints. Patient denies CP, worsening SOB, Dizziness, Falls, F/C, N/V, Abdominal Pain, diarrhea or hematemesis. Patient continues to have black tarry stools. Patient had no reaction to the blood products. Family History: Unchanged from Admission Social History: Unchanged from Admission Past Medical History: Unchanged from Admission Objective Active Medications: Acetaminophen (Tylenol Tab*) 650 mg PO Q6H PRN PRN Reason: pain/fever Hydrocodone Bitart/Acetaminophen ([place] 5-325 Tab*) 1 tab PO Q4H PRN PRN Reason: PAIN Last Admin: 05/01/17 10:30 Dose: 1 tab Budesonide/Formoterol Fumarate (Symbicort 160/4.5 (Nf)) 2 puff INH BID [facility] PRN Reason: Protocol Diazepam (Valium Tab(*)) 5 mg PO QID PRN PRN Reason: ANXIETY Last Admin: 05/01/17 11:52 Dose: 1.25 mg Fluticasone Propionate (Flonase Nasal [place] 50mcg*) 2 spray BOTH NARES DAILY [facility] Last Admin: 05/01/17 15:08 Dose: 2 spray Guaifenesin (Mucinex*) 600 mg PO BID [facility] Last Admin: 05/01/17 07:58 Dose: 600 mg Pantoprazole Sodium 80 mg/ (Sodium Chloride) 250 mls @ 25 mls/hr IVPB Q10H [facility] Last Admin: 05/01/17 15:47 Dose: Not Given Levalbuterol HCl (Xopenex 1.25 Mg/0.5 Ml Neb.Gabriela*) 1.25 mg INH Q4H PRN PRN Reason: Dyspnea/Wheezing Levalbuterol HCl (Xopenex Hfa Inhaler*) 2 puff INH Q4H PRN PRN Reason: SHORTNESS OF BREATH Metoprolol Succinate (Toprol Xl Tab*) 25 mg PO DAILY [facility] Last Admin: 05/01/17 07:58 Dose: 25 mg Polyethylene Glycol/Electrolytes (Miralax*) 17 gm PO QPM PRN PRN Reason: CONSTIPATION Prednisone (Deltasone Tab*) 5 mg PO DAILY [facility] Last Admin: 05/01/17 14:55 Dose: 5 mg Pregabalin (Lyrica Cap(*)) 50 mg PO TID [facility] Last Admin: 05/01/17 14:55 Dose: 50 mg Prochlorperazine Edisylate (Compazine Inj*) 5 mg IV Q6H PRN PRN Reason: NAUSEA/VOMITING Tiotropium [place] (Spiriva Cap.Inh*) 1 cap INH DAILY [facility] Last Admin: 05/01/17 07:58 Dose: 1 cap Trimethoprim/Sulfamethoxazole (Bactrim Ds 800/160 Tab*) 1 tab PO BID [facility] Vital Signs 04/30/17 04/30/17 04/30/17 18:21 19:30 20:00 Temperature 98.3 F Pulse Rate 109 Respiratory 22 22 18 Rate Blood Pressure 124/57 (mmHg) O2 Sat by Pulse 100 Oximetry 04/30/17 04/30/17 04/30/17 20:21 20:29 22:17 Temperature Pulse Rate Respiratory 22 18 18 Rate Blood Pressure (mmHg) O2 Sat by Pulse 96 Oximetry 04/30/17 04/30/17 05/01/17 22:18 23:27 02:53 Temperature 97.8 F 98.3 F Pulse Rate 104 103 Respiratory 18 16 16 Rate Blood Pressure 112/48 117/54 (mmHg) O2 Sat by Pulse 100 100 Oximetry 05/01/17 05/01/17 05/01/17 05:00 07:00 07:31 Temperature 98.9 F Pulse Rate 107 Respiratory 16 24 20 Rate Blood Pressure 63/46 (mmHg) O2 Sat by Pulse 100 Oximetry 05/01/17 05/01/17 05/01/17 07:40 07:57 08:00 Temperature Pulse Rate Respiratory 24 24 Rate Blood Pressure 110/60 (mmHg) O2 Sat by Pulse Oximetry 05/01/17 05/01/17 05/01/17 09:52 09:57 10:13 Temperature 98.1 F 97.8 F Pulse Rate 93 93 Respiratory 20 20 20 Rate Blood Pressure 102/51 106/52 (mmHg) O2 Sat by Pulse 100 98 Oximetry 05/01/17 05/01/17 05/01/17 10:30 11:52 12:30 Temperature Pulse Rate Respiratory 20 22 20 Rate Blood Pressure (mmHg) O2 Sat by Pulse Oximetry 05/01/17 05/01/17 05/01/17 13:18 13:52 14:55 Temperature 98.3 F Pulse Rate 96 Respiratory 20 20 18 Rate Blood Pressure 116/75 (mmHg) O2 Sat by Pulse 100 Oximetry 05/01/17 16:55 Temperature Pulse Rate Respiratory 20 Rate Blood Pressure (mmHg) O2 Sat by Pulse Oximetry Oxygen Devices in Use Now: Nasal Cannula - 3L Appearance: Patient is an emaciated 61yo who appears much older than stated age and is sitting in the tripod position having difficulty breathing. Eyes: No Scleral Icterus, PERRLA Ears/Nose/Mouth/Throat: NL Teeth, Lips, Gums, Clear Oropharnyx, Mucous Membranes Moist, - - Dental caries obvious on exam. Neck: NL Appearance and Movements; NL JVP, Trachea Midline Respiratory: Symmetrical Chest Expansion and Respiratory Effort, - - Harsh diminished lung sounds with prolonged expiratory phase and no adventitious sounds. Cardiovascular: NL Sounds; No Murmurs; No JVD, RRR, No Edema Abdominal: NL Sounds; No Tenderness; No Distention, No Hepatosplenomegaly Lymphatic: No Cervical Adenopathy Skin: No Rash or Ulcers Neurological: Alert and Oriented x 3 Result Diagrams: 05/01/17 08:25 05/01/17 05:24 Additional Lab and Data: Lab Results 04/29/17 04/29/17 04/29/17 Range/Units 23:04 23:04 23:04 WBC (3.5-10.8) 10^3/ul RBC (4.0-5.4) 10^6/ul Hgb (12.0-16.0) g/dl Hct (35-47) % MCV (80-97) fL MCH (27-31) pg MCHC (31-36) g/dl RDW (10.5-15) % Plt Count (150-450) 10^3/ul MPV (7.4-10.4) um3 Neut % (Auto) (38-83) % Lymph % (Auto) (25-47) % Turner % (Auto) (1-9) % Eos % (Auto) (0-6) % Baso % (Auto) (0-2) % Absolute Neuts (auto) (1.5-7.7) 10^3/ul Absolute Lymphs (auto) (1.0-4.8) 10^3/ul Absolute Monos (auto) (0-0.8) 10^3/ul Absolute Eos (auto) (0-0.6) 10^3/ul Absolute Basos (auto) (0-0.2) 10^3/ul Absolute Nucleated RBC 10^3/ul Nucleated RBC % Sodium 139 (133-145) mmol/L Potassium 3.7 (3.5-5.0) mmol/L Chloride 95 L (101-111) mmol/L Carbon Dioxide Pending Anion Gap Pending BUN 12 (6-24) mg/dL Creatinine 0.64 (0.51-0.95) mg/dL Est GFR ( Amer) 120.5 (>60) Est GFR (Non-Af Amer) 93.7 (>60) BUN/Creatinine Ratio 18.8 (8-20) Glucose 145 H (70-100) mg/dL Lactic Acid (0.5-2.0) mmol/L Calcium 9.4 (8.6-10.3) mg/dL Total Bilirubin 0.10 L (0.2-1.0) mg/dL AST 23 (13-39) U/L ALT 24 (7-52) U/L Alkaline Phosphatase 34 (34-104) U/L Troponin I 0.01 (<0.04) ng/mL C-Reactive Protein < 1.00 (< 5.00) mg/L B-Natriuretic Peptide 53 ( - 100) pg/mL Total Protein 5.8 L (6.4-8.9) g/dL Albumin 3.8 (3.2-5.2) g/dL Globulin 2.0 (2-4) g/dL Albumin/Globulin Ratio 1.9 (1-3) Lipase 61 (11.0-82.0) U/L TSH Pending Blood Type AB Positive Antibody Screen Pending 04/29/17 04/29/17 Range/Units 23:04 23:04 WBC 18.8 H (3.5-10.8) 10^3/ul RBC 2.55 L (4.0-5.4) 10^6/ul Hgb 8.0 L (12.0-16.0) g/dl Hct 25 L (35-47) % MCV 97 (80-97) fL MCH 32 H (27-31) pg MCHC 33 (31-36) g/dl RDW 14 (10.5-15) % Plt Count 362 (150-450) 10^3/ul MPV 9 (7.4-10.4) um3 Neut % (Auto) 74.7 (38-83) % Lymph % (Auto) 17.6 L (25-47) % Turner % (Auto) 6.4 (1-9) % Eos % (Auto) 0.8 (0-6) % Baso % (Auto) 0.5 (0-2) % Absolute Neuts (auto) 14.1 H (1.5-7.7) 10^3/ul Absolute Lymphs (auto) 3.3 (1.0-4.8) 10^3/ul Absolute Monos (auto) 1.2 H (0-0.8) 10^3/ul Absolute Eos (auto) 0.1 (0-0.6) 10^3/ul Absolute Basos (auto) 0.1 (0-0.2) 10^3/ul Absolute Nucleated RBC 0.02 10^3/ul Nucleated RBC % 0.1 Sodium (133-145) mmol/L Potassium (3.5-5.0) mmol/L Chloride (101-111) mmol/L Carbon Dioxide Anion Gap BUN (6-24) mg/dL Creatinine (0.51-0.95) mg/dL Est GFR ( Amer) (>60) Est GFR (Non-Af Amer) (>60) BUN/Creatinine Ratio (8-20) Glucose (70-100) mg/dL Lactic Acid 0.9 (0.5-2.0) mmol/L Calcium (8.6-10.3) mg/dL Total Bilirubin (0.2-1.0) mg/dL AST (13-39) U/L ALT (7-52) U/L Alkaline Phosphatase (34-104) U/L Troponin I (<0.04) ng/mL C-Reactive Protein (< 5.00) mg/L B-Natriuretic Peptide ( - 100) pg/mL Total Protein (6.4-8.9) g/dL Albumin (3.2-5.2) g/dL Globulin (2-4) g/dL Albumin/Globulin Ratio (1-3) Lipase (11.0-82.0) U/L TSH Blood Type Antibody Screen Assess/Plan/Problems-Billing Assessment: Patient is a 61yo female who has end stage COPD and a GI bleed who is not a candidate for EGD and is responding well to transfusions. Patient is interested in hospice care, but is not willing to be a DNR at this time. - Patient Problems (1) Upper GI bleed Current Visit: Yes Status: Acute Code(s): K92.2 - GASTROINTESTINAL HEMORRHAGE, UNSPECIFIED SNOMED Code(s): 01940185 Comment: Patient continues to have melena. Latest H/H pending. Will retransfuse for Hemoglobin below 7. Appreciate GI consult. (2) Advanced COPD Current Visit: No Status: Acute Code(s): J44.9 - CHRONIC OBSTRUCTIVE PULMONARY DISEASE, UNSPECIFIED SNOMED Code(s): 66883473 Comment: Advanced disease with oxygen dependency and cachexia. Continue home therapy including resuming chronic daily prednisone at 5mg. Appreciate palliative care consult, will consider hospice but would like to go hame and would not like to be DNR/DNI at this time. (3) DVT prophylaxis Current Visit: No Status: Acute Code(s): GOA9523 - SNOMED Code(s): 814443571 Comment: Pharmacologic prophylaxis held, SCDs as tolerated. (4) Smoker Current Visit: No Status: Chronic Priority: Medium Code(s): F17.200 - NICOTINE DEPENDENCE, UNSPECIFIED, UNCOMPLICATED SNOMED Code(s): 51486533 Comment: In July was smoking 1ppd now down to 1 pack per week Cessation counseling given (5) Chronic pain Current Visit: No Status: Acute Code(s): G89.29 - OTHER CHRONIC PAIN SNOMED Code(s): 63466737 Comment: Continue home pain medications. (6) Dental infection Current Visit: Yes Status: Acute Code(s): K04.7 - PERIAPICAL ABSCESS WITHOUT SINUS SNOMED Code(s): 271264624 Comment: Continue Bactrim to prevent inflammatory response from ongoing dental infection (7) Decubital ulcer Current Visit: Yes Status: Acute Code(s): L89.90 - PRESSURE ULCER OF UNSPECIFIED SITE, UNSPECIFIED STAGE SNOMED Code(s): 255986819 Comment: On bilateral elbows from tripod position. Medihoney with Bandaid and ABD pad cushion per wound care, appreciate input. Status and Disposition: Patient is admitted inpatient. Will Discharge when medically stable.
[2017-05-01] MEDS ORDERED: Furosemide IV* 10 MG/ML 2 ML VIAL (20 MG) ONE (18:32)
[2017-05-01 19:35] LABS: Hematocrit 35 % (35-47); Hemoglobin 11.7 g/dl (12.0-16.0)
[2017-05-01] MEDS: PTO: Budesonide/Formote 160/4.5(NF) MDI INH SCH (19:59)
[2017-05-01] MEDS: Sulfamethox/Trimethoprim DS 800/160* TAB PO SCH (22:52)
[2017-05-02] MEDS: Diazepam TAB(*) 5 MG PO PRN ×3 (06:04→13:23)
[2017-05-02] MEDS: PTO: Budesonide/Formote 160/4.5(NF) MDI INH SCH ×2 (08:19→21:30)
[2017-05-02] MEDS: Tiotropium CAP.INH* CAP.INH/18 MCG (USE ORDER SET !) INH SCH (08:19)
[2017-05-02] MEDS: Sulfamethox/Trimethoprim DS 800/160* TAB PO SCH ×2 (09:37→21:00)
[2017-05-02] MEDS: Pregabalin CAP(*) 50 MG PO SCH ×3 (09:37→22:49)
[2017-05-02] MEDS: Metoprolol Succinate XL TAB* 25 MG PO SCH (09:37)
[2017-05-02] MEDS: HYDROcodone/ACETAMIN 5-325 MG* 1 TAB PO PRN ×3 (09:38→21:00)
[2017-05-02] MEDS: predniSONE TAB* 5 MG PO SCH (09:38)
[2017-05-02] MEDS: guaiFENesin ER TAB 600 MG PO SCH ×2 (09:39→21:00)
[2017-05-02] MEDS: Fluticasone NASAL SPRAY 50MCG* 16 gm SPRAY BTL BOTH NARES SCH (09:40)
[2017-05-02] MEDS: Pantoprazole IV* 80 MG in NS 0.9% 250 ML* 250 ML IVPB SCH ×2 (12:13→22:00)
[2017-05-02] MEDS ORDERED: NS 0.9% 250 ML* 250 ML ONE (13:21)
[2017-05-02] MEDS: Polyethylene Glycol 3350* 17 GM PACKET PO PRN (13:24)
--- NOTE | 2017-05-02 14:34 | PN ---
Subjective Date of Service: 05/02/17 Interval History: Patient states she feels much better since yesterday. Patient states she is less fatigued, less SOB and her bowel movements have become more brown and less tarry. Patient states she is still considering hospice and being a DNR, but that she is not ready to commit to them yet. Family History: Unchanged from Admission Social History: Unchanged from Admission Past Medical History: Unchanged from Admission Objective Active Medications: Acetaminophen (Tylenol Tab*) 650 mg PO Q6H PRN PRN Reason: pain/fever Hydrocodone Bitart/Acetaminophen ([place] 5-325 Tab*) 1 tab PO Q4H PRN PRN Reason: PAIN Last Admin: 05/02/17 13:23 Dose: 1 tab Budesonide/Formoterol Fumarate (Symbicort 160/4.5 (Nf)) 2 puff INH BID ISI PRN Reason: Protocol Last Admin: 05/02/17 08:19 Dose: 2 puff Diazepam (Valium Tab(*)) 5 mg PO QID PRN PRN Reason: ANXIETY Last Admin: 05/02/17 13:23 Dose: 5 mg Fluticasone Propionate (Flonase Nasal Sacul 50mcg*) 2 spray BOTH NARES DAILY [facility] Last Admin: 05/02/17 09:40 Dose: 2 spray Guaifenesin (Mucinex*) 600 mg PO BID [facility] Last Admin: 05/02/17 09:39 Dose: 600 mg Pantoprazole Sodium 80 mg/ (Sodium Chloride) 250 mls @ 25 mls/hr IVPB Q10H [facility] Last Admin: 05/02/17 12:13 Dose: 25 mls/hr Levalbuterol HCl (Xopenex 1.25 Mg/0.5 Ml Neb.Gabriela*) 1.25 mg INH Q4H PRN PRN Reason: Dyspnea/Wheezing Levalbuterol HCl (Xopenex Hfa Inhaler*) 2 puff INH Q4H PRN PRN Reason: SHORTNESS OF BREATH Metoprolol Succinate (Toprol Xl Tab*) 25 mg PO DAILY [facility] Last Admin: 05/02/17 09:37 Dose: 25 mg Polyethylene Glycol/Electrolytes (Miralax*) 17 gm PO QPM PRN PRN Reason: CONSTIPATION Last Admin: 05/02/17 13:24 Dose: 17 gm Prednisone (Deltasone Tab*) 5 mg PO DAILY [facility] Last Admin: 05/02/17 09:38 Dose: 5 mg Pregabalin (Lyrica Cap(*)) 50 mg PO TID [facility] Last Admin: 05/02/17 13:23 Dose: 50 mg Prochlorperazine Edisylate (Compazine Inj*) 5 mg IV Q6H PRN PRN Reason: NAUSEA/VOMITING Tiotropium [place] (Spiriva Cap.Inh*) 1 cap INH DAILY [facility] Last Admin: 05/02/17 08:19 Dose: 1 cap Trimethoprim/Sulfamethoxazole (Bactrim Ds 800/160 Tab*) 1 tab PO BID [facility] Last Admin: 05/02/17 09:37 Dose: 1 tab Vital Signs 05/01/17 05/01/17 05/01/17 14:55 15:10 15:34 Temperature 98.8 F 98.5 F Pulse Rate 101 99 Respiratory 18 20 20 Rate Blood Pressure 113/62 129/65 (mmHg) O2 Sat by Pulse 100 100 Oximetry 05/01/17 05/01/17 05/01/17 16:55 18:07 20:00 Temperature 98.3 F Pulse Rate 97 Respiratory 20 20 20 Rate Blood Pressure 114/61 (mmHg) O2 Sat by Pulse 100 Oximetry 05/01/17 05/01/17 05/01/17 21:10 22:52 22:57 Temperature 99.1 F Pulse Rate 112 Respiratory 18 22 22 Rate Blood Pressure 116/66 (mmHg) O2 Sat by Pulse 99 Oximetry 05/01/17 05/02/17 05/02/17 23:53 00:52 00:57 Temperature 98.0 F Pulse Rate 117 Respiratory 20 20 20 Rate Blood Pressure 122/63 (mmHg) O2 Sat by Pulse 100 Oximetry 05/02/17 05/02/17 05/02/17 03:15 03:54 06:21 Temperature 98.3 F 98.2 F Pulse Rate 90 123 Respiratory 20 20 Rate Blood Pressure 120/70 (mmHg) O2 Sat by Pulse 95 97 Oximetry 05/02/17 05/02/17 05/02/17 08:00 08:04 09:37 Temperature 99.9 F Pulse Rate 127 Respiratory 16 18 16 Rate Blood Pressure 131/83 (mmHg) O2 Sat by Pulse 100 Oximetry 10/07/17 10/07/17 10/07/17 09:38 11:37 11:38 Temperature Pulse Rate Respiratory 16 16 16 Rate Blood Pressure (mmHg) O2 Sat by Pulse Oximetry 05/02/17 13:23 Temperature Pulse Rate Respiratory 16 Rate Blood Pressure (mmHg) O2 Sat by Pulse Oximetry Oxygen Devices in Use Now: Nasal Cannula - 3L Appearance: Patient is an emaciated 61yo female who appears much older than stated age and is sitting in the tripod position on the bed in [facility]. Eyes: No Scleral Icterus, PERRLA Ears/Nose/Mouth/Throat: NL Teeth, Lips, Gums, Clear Oropharnyx, Mucous Membranes Moist Neck: NL Appearance and Movements; NL JVP, Trachea Midline Respiratory: Symmetrical Chest Expansion and Respiratory Effort, - - Significantly diminished breath sounds bilaterally without other adventitious sounds. Cardiovascular: NL Sounds; No Murmurs; No JVD, RRR, No Edema Abdominal: NL Sounds; No Tenderness; No Distention, No Hepatosplenomegaly Lymphatic: No Cervical Adenopathy Extremities: No Edema Skin: No Rash or Ulcers, No Nodules or Sclerosis Neurological: Alert and Oriented x 3 Result Diagrams: 05/01/17 19:18 05/01/17 05:24 Additional Lab and Data: Lab Results 04/29/17 04/29/17 04/29/17 Range/Units 23:04 23:04 23:04 WBC (3.5-10.8) 10^3/ul RBC (4.0-5.4) 10^6/ul Hgb (12.0-16.0) g/dl Hct (35-47) % MCV (80-97) fL MCH (27-31) pg MCHC (31-36) g/dl RDW (10.5-15) % Plt Count (150-450) 10^3/ul MPV (7.4-10.4) um3 Neut % (Auto) (38-83) % Lymph % (Auto) (25-47) % Murray % (Auto) (1-9) % Eos % (Auto) (0-6) % Baso % (Auto) (0-2) % Absolute Neuts (auto) (1.5-7.7) 10^3/ul Absolute Lymphs (auto) (1.0-4.8) 10^3/ul Absolute Monos (auto) (0-0.8) 10^3/ul Absolute Eos (auto) (0-0.6) 10^3/ul Absolute Basos (auto) (0-0.2) 10^3/ul Absolute Nucleated RBC 10^3/ul Nucleated RBC % Sodium 139 (133-145) mmol/L Potassium 3.7 (3.5-5.0) mmol/L Chloride 95 L (101-111) mmol/L Carbon Dioxide Pending Anion Gap Pending BUN 12 (6-24) mg/dL Creatinine 0.64 (0.51-0.95) mg/dL Est GFR ( Amer) 120.5 (>60) Est GFR (Non-Af Amer) 93.7 (>60) BUN/Creatinine Ratio 18.8 (8-20) Glucose 145 H (70-100) mg/dL Lactic Acid (0.5-2.0) mmol/L Calcium 9.4 (8.6-10.3) mg/dL Total Bilirubin 0.10 L (0.2-1.0) mg/dL AST 23 (13-39) U/L ALT 24 (7-52) U/L Alkaline Phosphatase 34 (34-104) U/L Troponin I 0.01 (<0.04) ng/mL C-Reactive Protein < 1.00 (< 5.00) mg/L B-Natriuretic Peptide 53 ( - 100) pg/mL Total Protein 5.8 L (6.4-8.9) g/dL Albumin 3.8 (3.2-5.2) g/dL Globulin 2.0 (2-4) g/dL Albumin/Globulin Ratio 1.9 (1-3) Lipase 61 (11.0-82.0) U/L TSH Pending Blood Type AB Positive Antibody Screen Pending 04/29/17 04/29/17 Range/Units 23:04 23:04 WBC 18.8 H (3.5-10.8) 10^3/ul RBC 2.55 L (4.0-5.4) 10^6/ul Hgb 8.0 L (12.0-16.0) g/dl Hct 25 L (35-47) % MCV 97 (80-97) fL MCH 32 H (27-31) pg MCHC 33 (31-36) g/dl RDW 14 (10.5-15) % Plt Count 362 (150-450) 10^3/ul MPV 9 (7.4-10.4) um3 Neut % (Auto) 74.7 (38-83) % Lymph % (Auto) 17.6 L (25-47) % Murray % (Auto) 6.4 (1-9) % Eos % (Auto) 0.8 (0-6) % Baso % (Auto) 0.5 (0-2) % Absolute Neuts (auto) 14.1 H (1.5-7.7) 10^3/ul Absolute Lymphs (auto) 3.3 (1.0-4.8) 10^3/ul Absolute Monos (auto) 1.2 H (0-0.8) 10^3/ul Absolute Eos (auto) 0.1 (0-0.6) 10^3/ul Absolute Basos (auto) 0.1 (0-0.2) 10^3/ul Absolute Nucleated RBC 0.02 10^3/ul Nucleated RBC % 0.1 Sodium (133-145) mmol/L Potassium (3.5-5.0) mmol/L Chloride (101-111) mmol/L Carbon Dioxide Anion Gap BUN (6-24) mg/dL Creatinine (0.51-0.95) mg/dL Est GFR ( Amer) (>60) Est GFR (Non-Af Amer) (>60) BUN/Creatinine Ratio (8-20) Glucose (70-100) mg/dL Lactic Acid 0.9 (0.5-2.0) mmol/L Calcium (8.6-10.3) mg/dL Total Bilirubin (0.2-1.0) mg/dL AST (13-39) U/L ALT (7-52) U/L Alkaline Phosphatase (34-104) U/L Troponin I (<0.04) ng/mL C-Reactive Protein (< 5.00) mg/L B-Natriuretic Peptide ( - 100) pg/mL Total Protein (6.4-8.9) g/dL Albumin (3.2-5.2) g/dL Globulin (2-4) g/dL Albumin/Globulin Ratio (1-3) Lipase (11.0-82.0) U/L TSH Blood Type Antibody Screen 04/29/17 04/29/17 04/29/17 23:04 23:04 23:04 WBC RBC Hgb Hct MCV MCH MCHC RDW Plt Count MPV Neut % (Auto) Lymph % (Auto) Murray % (Auto) Eos % (Auto) Baso % (Auto) Absolute Neuts (auto) Absolute Lymphs (auto) Absolute Monos (auto) Absolute Eos (auto) Absolute Basos (auto) Absolute Nucleated RBC Nucleated RBC % Normal RBC Morphology Basophilic Stippling Spherocytes INR (Anticoag Therapy) 0.89 APTT 26.1 Sodium Potassium Chloride Carbon Dioxide Anion Gap BUN Creatinine Est GFR ( Amer) Est GFR (Non-Af Amer) BUN/Creatinine Ratio Glucose Lactic Acid Calcium Total Bilirubin AST ALT Alkaline Phosphatase Troponin I C-Reactive Protein B-Natriuretic Peptide 53 Total Protein Albumin Globulin Albumin/Globulin Ratio Lipase TSH Urine Color Urine Appearance Urine pH Ur Specific [place] Urine Protein Urine Ketones Urine Blood Urine Nitrate Urine Bilirubin Urine Urobilinogen Ur Leukocyte Esterase Urine Glucose Blood Type AB Positive Antibody Screen Negative Crossmatch See Detail 04/29/17 04/29/17 04/29/17 23:04 23:04 23:04 WBC 18.8 H RBC 2.55 L Hgb 8.0 L Hct 25 L MCV 97 MCH 32 H MCHC 33 RDW 14 Plt Count 362 MPV 9 Neut % (Auto) 74.7 Lymph % (Auto) 17.6 L Murray % (Auto) 6.4 Eos % (Auto) 0.8 Baso % (Auto) 0.5 Absolute Neuts (auto) 14.1 H Absolute Lymphs (auto) 3.3 Absolute Monos (auto) 1.2 H Absolute Eos (auto) 0.1 Absolute Basos (auto) 0.1 Absolute Nucleated RBC 0.02 Nucleated RBC % 0.1 Normal RBC Morphology Basophilic Stippling Spherocytes INR (Anticoag Therapy) APTT Sodium 139 Potassium 3.7 Chloride 95 L Carbon Dioxide 41 H* Anion Gap 3 BUN 12 Creatinine 0.64 Est GFR ( Amer) 120.5 Est GFR (Non-Af Amer) 93.7 BUN/Creatinine Ratio 18.8 Glucose 145 H Lactic Acid 0.9 Calcium 9.4 Total Bilirubin 0.10 L AST 23 ALT 24 Alkaline Phosphatase 34 Troponin I 0.01 C-Reactive Protein < 1.00 B-Natriuretic Peptide Total Protein 5.8 L Albumin 3.8 Globulin 2.0 Albumin/Globulin Ratio 1.9 Lipase 61 TSH 3.37 Urine Color Urine Appearance Urine pH Ur Specific Machias Urine Protein Urine Ketones Urine Blood Urine Nitrate Urine Bilirubin Urine Urobilinogen Ur Leukocyte Esterase Urine Glucose Blood Type Antibody Screen Crossmatch 04/30/17 04/30/17 04/30/17 06:35 07:00 14:40 WBC 18.7 H RBC 2.68 L Hgb 8.3 L 7.2 L Hct 26 L 23 L MCV 96 MCH 31 MCHC 32 RDW 14 Plt Count 347 MPV 10 Neut % (Auto) 56.8 Lymph % (Auto) 33.1 Murray % (Auto) 7.7 Eos % (Auto) 1.6 Baso % (Auto) 0.8 Absolute Neuts (auto) 10.6 H Absolute Lymphs (auto) 6.2 H Absolute Monos (auto) 1.4 H Absolute Eos (auto) 0.3 Absolute Basos (auto) 0.2 Absolute Nucleated RBC 0.03 Nucleated RBC % 0.2 Normal RBC Morphology Basophilic Stippling Spherocytes INR (Anticoag Therapy) APTT Sodium Potassium Chloride Carbon Dioxide Anion Gap BUN Creatinine Est GFR ( Amer) Est GFR (Non-Af Amer) BUN/Creatinine Ratio Glucose Lactic Acid Calcium Total Bilirubin AST ALT Alkaline Phosphatase Troponin I C-Reactive Protein B-Natriuretic Peptide Total Protein Albumin Globulin Albumin/Globulin Ratio Lipase TSH Urine Color Yellow Urine Appearance Clear Urine pH 6.0 Ur Specific [place] 1.027 Urine Protein Negative Urine Ketones Negative Urine Blood Negative Urine Nitrate Negative Urine Bilirubin Negative Urine Urobilinogen Negative Ur Leukocyte Esterase Negative Urine Glucose Negative Blood Type Antibody Screen Crossmatch 05/01/17 05/01/17 05/01/17 05:24 05:24 08:25 WBC 11.2 H RBC 2.03 L Hgb 6.4 L* 7.0 L Hct 20 L 22 L MCV 98 H MCH 31 MCHC 32 RDW 14 Plt Count 291 MPV 10 Neut % (Auto) 60.2 Lymph % (Auto) 28.4 Murray % (Auto) 8.8 Eos % (Auto) 1.9 Baso % (Auto) 0.7 Absolute Neuts (auto) 6.8 Absolute Lymphs (auto) 3.2 Absolute Monos (auto) 1.0 H Absolute Eos (auto) 0.2 Absolute Basos (auto) 0.1 Absolute Nucleated RBC 0.01 Nucleated RBC % 0.1 Normal RBC Morphology Not Reportable Basophilic Stippling 2+ Spherocytes 2+ INR (Anticoag Therapy) APTT Sodium 138 Potassium 4.0 Chloride 102 Carbon Dioxide 32 Anion Gap 4 BUN 5 L Creatinine 0.57 Est GFR ( Amer) 137.8 Est GFR (Non-Af Amer) 107.1 BUN/Creatinine Ratio 8.8 Glucose 83 Lactic Acid Calcium 8.5 L Total Bilirubin AST ALT Alkaline Phosphatase Troponin I C-Reactive Protein B-Natriuretic Peptide Total Protein Albumin Globulin Albumin/Globulin Ratio Lipase TSH Urine Color Urine Appearance Urine pH Ur Specific Machias Urine Protein Urine Ketones Urine Blood Urine Nitrate Urine Bilirubin Urine Urobilinogen Ur Leukocyte Esterase Urine Glucose Blood Type Antibody Screen Crossmatch 05/01/17 19:18 WBC RBC Hgb 11.7 L Hct 35 MCV MCH MCHC RDW Plt Count MPV Neut % (Auto) Lymph % (Auto) Murray % (Auto) Eos % (Auto) Baso % (Auto) Absolute Neuts (auto) Absolute Lymphs (auto) Absolute Monos (auto) Absolute Eos (auto) Absolute Basos (auto) Absolute Nucleated RBC Nucleated RBC % Normal RBC Morphology Basophilic Stippling Spherocytes INR (Anticoag Therapy) APTT Sodium Potassium Chloride Carbon Dioxide Anion Gap BUN Creatinine Est GFR ( Amer) Est GFR (Non-Af Amer) BUN/Creatinine Ratio Glucose Lactic Acid Calcium Total Bilirubin AST ALT Alkaline Phosphatase Troponin I C-Reactive Protein B-Natriuretic Peptide Total Protein Albumin Globulin Albumin/Globulin Ratio Lipase TSH Urine Color Urine Appearance Urine pH Ur Specific [place] Urine Protein Urine Ketones Urine Blood Urine Nitrate Urine Bilirubin Urine Urobilinogen Ur Leukocyte Esterase Urine Glucose Blood Type Antibody Screen Crossmatch Assess/Plan/Problems-Billing Assessment: Patient is a 61yo female who has end stage COPD and a GI bleed who is not a candidate for EGD and is responding well to transfusions. Patient is interested in hospice care, but is not willing to be a DNR at this time. - Patient Problems (1) Upper GI bleed Current Visit: Yes Status: Acute Code(s): K92.2 - GASTROINTESTINAL HEMORRHAGE, UNSPECIFIED SNOMED Code(s): 57524352 Comment: Patient continues to have melena, but it is improving per patient. Latest H/H pending. Most recent 11.2. Patient feels much better. Will retransfuse for Hemoglobin below 7. Appreciate GI consult. 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 Continue home therapy including resuming chronic daily prednisone at 5mg. Appreciate palliative care consult, will consider hospice but would like to go hame and would not like to be DNR/DNI at this time. (3) DVT prophylaxis Current Visit: No Status: Acute Code(s): TJH5770 - SNOMED Code(s): 800078528 Comment: Pharmacologic prophylaxis held, SCDs as tolerated. (4) Smoker Current Visit: No Status: Chronic Priority: Medium Code(s): F17.200 - NICOTINE DEPENDENCE, UNSPECIFIED, UNCOMPLICATED SNOMED Code(s): 47886693 Comment: Patient continues to smoke occasionally and acknowledges that it is detrimental to her pulmonary status and may contribute to her recurrent hospitalizations. (5) Chronic pain Current Visit: No Status: Acute Code(s): G89.29 - OTHER CHRONIC PAIN SNOMED Code(s): 30654866 Comment: Continue home pain medications. (6) Dental infection Current Visit: Yes Status: Acute Code(s): K04.7 - PERIAPICAL ABSCESS WITHOUT SINUS SNOMED Code(s): 790695030 Comment: Continue Bactrim to prevent inflammatory response from ongoing dental infection (7) Decubital ulcer Current Visit: Yes Status: Acute Code(s): L89.90 - PRESSURE ULCER OF UNSPECIFIED SITE, UNSPECIFIED STAGE SNOMED Code(s): 104055216 Comment: On bilateral elbows from tripod position. Medihoney with Bandaid and ABD pad cushion per wound care, appreciate input. Status and Disposition: Patient is admitted inpatient. Will Discharge when medically stable estimate in 1-2 days.
[2017-05-02 17:15] LABS: Hematocrit 26 % (35-47); Hemoglobin 8.7 g/dl (12.0-16.0); Mean Corpuscular HGB Conc 33 g/dl (31-36); Mean Corpuscular Hemoglobin 31 pg (27-31); Mean Corpuscular Volume 92 fL (80-97); Mean Platelet Volume 9 um3 (7.4-10.4); Red Blood Count 2.86 10^6/ul (4.0-5.4); Red Cell Distribution Width 15 % (10.5-15); White Blood Count 15.5 10^3/ul (3.5-10.8)
[2017-05-02 17:28] LABS: BUN/Creatinine Ratio 31.4 (8-20); Calcium 8.4 mg/dL (8.6-10.3); EGFR African American 156.6 (>60); EGFR Non-African American 121.8 (>60); Potassium 3.9 mmol/L (3.5-5.0)
--- NOTE | 2017-05-02 18:30 | PN ---
CC: [facility] PROGRESS NOTE: DATE OF SERVICE:05.02.17 SUBJECTIVE: The patient denies any nausea, emesis, abdominal pain. She states she feels much better today and only had one bowel movement, which was small and dark brown this morning. She denies any bright red blood per rectum. She was able to eat a small amount of her breakfast. OBJECTIVE: Vital Signs: Temperature is 99.9, heart rate 127, respiratory rate 18, saturation at 100% on 3.5 L per nasal cannula, blood pressure is 131/83. In general, chronically appearing female sitting in mild respiratory distress, but able to speak one-word sentences. HEENT: Anicteric sclerae. Chest: Clear , but prolonged expiratory phase. No obvious wheezing. Cardiovascular: Tachycardic. S1 and S2 heard. No rubs or gallops. Abdomen: Soft, nontender. Normoactive bowel sounds. No rebound or guarding. LABORATORY DATA: Labs last night were remarkable for a hemoglobin of 11.7. There are no other labs today. IMPRESSION AND PLAN: This is a 61-year-old female with severe end-stage chronic obstructive pulmonary disease and symptomatic anemia secondary to gastrointestinal bleeding, which appears to now have completely resolved. 1. Gastrointestinal bleeding: The patient's gastrointestinal bleeding is likely secondary to an upper source, unclear etiology. Possible etiologies include peptic ulcer disease, gastritis, Dieulafoy lesion, arteriovenous malformation. Continue high-dose PPI for acid suppression and continue to check an H and H every 8 hours. 2. Maintain 2 large bore IVs at all times. Transfuse if hemoglobin is less than 8. 3. The patient likely will be stable for discharge once she is tolerating a diet and there is no further evidence of gastrointestinal bleeding, which I suspect will be in 1 to 2 days. [id number]/CPS #: [id number] MTDD
[2017-05-03] MEDS: HYDROcodone/ACETAMIN 5-325 MG* 1 TAB PO PRN ×5 (04:19→22:46)
[2017-05-03 05:22] LABS: Hematocrit 25 % (35-47); Hemoglobin 8.2 g/dl (12.0-16.0); Mean Corpuscular HGB Conc 34 g/dl (31-36); Mean Corpuscular Hemoglobin 31 pg (27-31); Mean Corpuscular Volume 93 fL (80-97); Mean Platelet Volume 9 um3 (7.4-10.4); Red Blood Count 2.64 10^6/ul (4.0-5.4); Red Cell Distribution Width 15 % (10.5-15); White Blood Count 13.9 10^3/ul (3.5-10.8)
[2017-05-03] MEDS: Diazepam TAB(*) 5 MG PO PRN ×3 (05:35→14:11)
[2017-05-03 05:39] LABS: BUN/Creatinine Ratio 46.7 (8-20); Blood Urea Nitrogen 21 mg/dL (6-24); Calcium 8.6 mg/dL (8.6-10.3); Chloride 101 mmol/L (101-111); EGFR Non-African American 140.7 (>60); Glucose 100 mg/dL (70-100); Potassium 3.6 mmol/L (3.5-5.0); Sodium 142 mmol/L (133-145)
[2017-05-03 05:44] LABS: CO2 Carbon Dioxide 41 mmol/L (22-32)
[2017-05-03] MEDS: PTO: Budesonide/Formote 160/4.5(NF) MDI INH SCH ×2 (08:49→20:45)
[2017-05-03] MEDS: Tiotropium CAP.INH* CAP.INH/18 MCG (USE ORDER SET !) INH SCH (08:49)
[2017-05-03] MEDS: Polyethylene Glycol 3350* 17 GM PACKET PO PRN ×2 (08:50→20:10)
[2017-05-03] MEDS: Sulfamethox/Trimethoprim DS 800/160* TAB PO SCH ×2 (08:52→21:50)
[2017-05-03] MEDS: predniSONE TAB* 5 MG PO SCH (08:52)
[2017-05-03] MEDS: Pregabalin CAP(*) 50 MG PO SCH ×3 (08:52→21:50)
[2017-05-03] MEDS: Fluticasone NASAL SPRAY 50MCG* 16 gm SPRAY BTL BOTH NARES SCH (08:52)
[2017-05-03] MEDS: Metoprolol Succinate XL TAB* 25 MG PO SCH (08:53)
[2017-05-03] MEDS: guaiFENesin ER TAB 600 MG PO SCH ×2 (08:53→21:50)
[2017-05-03] MEDS ORDERED: Cetirizine* 10 MG TAB PO PRN (09:56)
[2017-05-03] MEDS: Pantoprazole IV* 80 MG in NS 0.9% 250 ML* 250 ML IVPB SCH (12:39)
[2017-05-03] MEDS: Multivitamins/Minerals TAB PO SCH (12:54)
[2017-05-03] MEDS: Nystatin SUSPENSION* 100000 UNITS/ML 5 ML UDC PO SCH ×3 (12:54→21:50)
--- NOTE | 2017-05-03 16:48 | PN ---
Subjective Date of Service: 05/03/17 Interval History: Patient continues to feel better than yesterday. No new complaints such as increased SOB, dizziness, or CP. Patient has not had a bowel movement recently, no abdominal pain or N/V. Patient still not willing to sign DNR/DNI and feels optimistic about going home. Family History: Unchanged from Admission Social History: Unchanged from Admission Past Medical History: Unchanged from Admission Objective Active Medications: Acetaminophen (Tylenol Tab*) 650 mg PO Q6H PRN PRN Reason: pain/fever Hydrocodone Bitart/Acetaminophen (Clubb 5-325 Tab*) 1 tab PO Q4H PRN PRN Reason: PAIN Last Admin: 05/03/17 12:54 Dose: 1 tab Budesonide/Formoterol Fumarate (Symbicort 160/4.5 (Nf)) [address] [facility] PRN Reason: Protocol Last Admin: 05/03/17 08:49 Dose: 2 puff Cetirizine HCl (Zyrtec*) 10 mg PO DAILY PRN PRN Reason: Allergy Symptoms Diazepam (Valium Tab(*)) 5 mg PO QID PRN PRN Reason: ANXIETY Last Admin: 05/03/17 14:11 Dose: 5 mg Fluticasone Propionate (Flonase Nasal [place] 50mcg*) [address] [facility] Last Admin: 05/03/17 08:52 Dose: 2 spray Guaifenesin (Mucinex*) [address] [facility] Last Admin: 05/03/17 08:53 Dose: 600 mg Levalbuterol HCl (Xopenex 1.25 Mg/0.5 Ml Neb.Gabriela*) 1.25 mg INH Q4H PRN PRN Reason: Dyspnea/Wheezing Levalbuterol HCl (Xopenex Hfa Inhaler*) 2 puff INH Q4H PRN PRN Reason: SHORTNESS OF BREATH Metoprolol Succinate (Toprol Xl Tab*) [address] [facility] Last Admin: 05/03/17 08:53 Dose: 25 mg Multivitamins/Minerals (Theragran/Minerals Tab*) [address] [facility] Last Admin: 05/03/17 12:54 Dose: 1 tab Nystatin (Nystatin Suspension*) 500,[address] [facility] Stop: 05/10/17 09:58 Last Admin: 05/03/17 12:54 Dose: 500,000 units Omeprazole (Prilosec Cap*) 40 mg PO BID@0730,1630 [facility] Polyethylene Glycol/Electrolytes (Miralax*) 17 gm PO QPM PRN PRN Reason: CONSTIPATION Last Admin: 05/03/17 08:50 Dose: 17 gm Prednisone (Deltasone Tab*) [address] [facility] Last Admin: 05/03/17 08:52 Dose: 5 mg Pregabalin (Lyrica Cap(*)) [address] [facility] Last Admin: 05/03/17 12:54 Dose: 50 mg Prochlorperazine Edisylate (Compazine Inj*) 5 mg IV Q6H PRN PRN Reason: NAUSEA/VOMITING Tiotropium [place] (Spiriva Cap.Inh*) [address] [facility] Last Admin: 05/03/17 08:49 Dose: 1 cap Trimethoprim/Sulfamethoxazole (Bactrim Ds 800/160 Tab*) [address] [facility] Last Admin: 05/03/17 08:52 Dose: 1 tab Vital Signs 05/02/17 05/02/17 05/02/17 19:36 19:55 19:58 Temperature 97.9 F Pulse Rate 109 Respiratory 20 20 20 Rate Blood Pressure 110/63 (mmHg) O2 Sat by Pulse 100 Oximetry 05/02/17 05/02/17 05/02/17 20:00 21:00 22:49 Temperature Pulse Rate Respiratory 20 20 20 Rate Blood Pressure (mmHg) O2 Sat by Pulse Oximetry 05/02/17 05/03/17 05/03/17 23:00 00:28 00:49 Temperature 97.4 F Pulse Rate 102 Respiratory 19 20 20 Rate Blood Pressure 113/67 (mmHg) O2 Sat by Pulse 100 Oximetry 05/03/17 05/03/17 05/03/17 04:05 04:19 05:35 Temperature 98.1 F Pulse Rate 106 Respiratory 20 21 21 Rate Blood Pressure 108/55 (mmHg) O2 Sat by Pulse 100 Oximetry 05/03/17 05/03/17 05/03/17 06:19 07:27 07:50 Temperature Pulse Rate Respiratory 20 19 16 Rate Blood Pressure (mmHg) O2 Sat by Pulse Oximetry 05/03/17 05/03/17 05/03/17 08:02 08:52 08:53 Temperature 99.0 F Pulse Rate 94 Respiratory 20 16 16 Rate Blood Pressure 98/62 (mmHg) O2 Sat by Pulse 100 Oximetry 05/03/17 05/03/17 05/03/17 10:52 10:53 11:57 Temperature 97.9 F Pulse Rate 101 Respiratory 16 16 20 Rate Blood Pressure 101/53 (mmHg) O2 Sat by Pulse 100 Oximetry 05/03/17 05/03/17 05/03/17 12:54 14:11 16:01 Temperature 97.4 F Pulse Rate 96 Respiratory 16 16 18 Rate Blood Pressure 113/57 (mmHg) O2 Sat by Pulse 100 Oximetry Oxygen Devices in Use Now: Nasal Cannula - 3L Appearance: Patient is an emaciated 61yo female who appears much older than stated age and is sitting in the tripod position on the bed in [facility]. Eyes: No Scleral Icterus, PERRLA Ears/Nose/Mouth/Throat: Mucous Membranes Moist, - - Significant caries and broken teeth noted. Adherent plaques consistent with thrush noted on roof of mouth. Neck: NL Appearance and Movements; NL JVP, Trachea Midline Respiratory: Symmetrical Chest Expansion and Respiratory Effort, - - Severely diminished lung sounds. No other adventitious sounds. Cardiovascular: NL Sounds; No Murmurs; No JVD, No Edema, - - Sinus Arrhythmia, Tachycardic. Abdominal: NL Sounds; No Tenderness; No Distention, No Hepatosplenomegaly Lymphatic: No Cervical Adenopathy Extremities: No Edema, No Clubbing, Cyanosis Skin: No Rash or Ulcers, No Nodules or Sclerosis Neurological: Alert and Oriented x 3 Result Diagrams: 05/03/17 05:06 05/03/17 05:06 Additional Lab and Data: Lab Results 04/29/17 04/29/17 04/29/17 Range/Units 23:04 23:04 23:04 WBC (3.5-10.8) 10^3/ul RBC (4.0-5.4) 10^6/ul Hgb (12.0-16.0) g/dl Hct (35-47) % MCV (80-97) fL MCH (27-31) pg MCHC (31-36) g/dl RDW (10.5-15) % Plt Count (150-450) 10^3/ul MPV (7.4-10.4) um3 Neut % (Auto) (38-83) % Lymph % (Auto) (25-47) % [place] % (Auto) (1-9) % Eos % (Auto) (0-6) % Baso % (Auto) (0-2) % Absolute Neuts (auto) (1.5-7.7) 10^3/ul Absolute Lymphs (auto) (1.0-4.8) 10^3/ul Absolute Monos (auto) (0-0.8) 10^3/ul Absolute Eos (auto) (0-0.6) 10^3/ul Absolute Basos (auto) (0-0.2) 10^3/ul Absolute Nucleated RBC 10^3/ul Nucleated RBC % Sodium 139 (133-145) mmol/L Potassium 3.7 (3.5-5.0) mmol/L Chloride 95 L (101-111) mmol/L Carbon Dioxide Pending Anion Gap Pending BUN 12 (6-24) mg/dL Creatinine 0.64 (0.51-0.95) mg/dL Est GFR ( Amer) 120.5 (>60) Est GFR (Non-Af Amer) 93.7 (>60) BUN/Creatinine Ratio 18.8 (8-20) Glucose 145 H (70-100) mg/dL Lactic Acid (0.5-2.0) mmol/L Calcium 9.4 (8.6-10.3) mg/dL Total Bilirubin 0.10 L (0.2-1.0) mg/dL AST 23 (13-39) U/L ALT 24 (7-52) U/L Alkaline Phosphatase 34 (34-104) U/L Troponin I 0.01 (<0.04) ng/mL C-Reactive Protein < 1.00 (< 5.00) mg/L B-Natriuretic Peptide 53 ( - 100) pg/mL Total Protein 5.8 L (6.4-8.9) g/dL Albumin 3.8 (3.2-5.2) g/dL Globulin 2.0 (2-4) g/dL Albumin/Globulin Ratio 1.9 (1-3) Lipase 61 (11.0-82.0) U/L TSH Pending Blood Type AB Positive Antibody Screen Pending 04/29/17 04/29/17 Range/Units 23:04 23:04 WBC 18.8 H (3.5-10.8) 10^3/ul RBC 2.55 L (4.0-5.4) 10^6/ul Hgb 8.0 L (12.0-16.0) g/dl Hct 25 L (35-47) % MCV 97 (80-97) fL MCH 32 H (27-31) pg MCHC 33 (31-36) g/dl RDW 14 (10.5-15) % Plt Count 362 (150-450) 10^3/ul MPV 9 (7.4-10.4) um3 Neut % (Auto) 74.7 (38-83) % Lymph % (Auto) 17.6 L (25-47) % [place] % (Auto) 6.4 (1-9) % Eos % (Auto) 0.8 (0-6) % Baso % (Auto) 0.5 (0-2) % Absolute Neuts (auto) 14.1 H (1.5-7.7) 10^3/ul Absolute Lymphs (auto) 3.3 (1.0-4.8) 10^3/ul Absolute Monos (auto) 1.2 H (0-0.8) 10^3/ul Absolute Eos (auto) 0.1 (0-0.6) 10^3/ul Absolute Basos (auto) 0.1 (0-0.2) 10^3/ul Absolute Nucleated RBC 0.02 10^3/ul Nucleated RBC % 0.1 Sodium (133-145) mmol/L Potassium (3.5-5.0) mmol/L Chloride (101-111) mmol/L Carbon Dioxide Anion Gap BUN (6-24) mg/dL Creatinine (0.51-0.95) mg/dL Est GFR ( Amer) (>60) Est GFR (Non-Af Amer) (>60) BUN/Creatinine Ratio (8-20) Glucose (70-100) mg/dL Lactic Acid 0.9 (0.5-2.0) mmol/L Calcium (8.6-10.3) mg/dL Total Bilirubin (0.2-1.0) mg/dL AST (13-39) U/L ALT (7-52) U/L Alkaline Phosphatase (34-104) U/L Troponin I (<0.04) ng/mL C-Reactive Protein (< 5.00) mg/L B-Natriuretic Peptide ( - 100) pg/mL Total Protein (6.4-8.9) g/dL Albumin (3.2-5.2) g/dL Globulin (2-4) g/dL Albumin/Globulin Ratio (1-3) Lipase (11.0-82.0) U/L TSH Blood Type Antibody Screen 04/29/17 04/29/17 04/29/17 23:04 23:04 23:04 WBC RBC Hgb Hct MCV MCH MCHC RDW Plt Count MPV Neut % (Auto) Lymph % (Auto) [place] % (Auto) Eos % (Auto) Baso % (Auto) Absolute Neuts (auto) Absolute Lymphs (auto) Absolute Monos (auto) Absolute Eos (auto) Absolute Basos (auto) Absolute Nucleated RBC Nucleated RBC % Normal RBC Morphology Basophilic Stippling Spherocytes INR (Anticoag Therapy) 0.89 APTT 26.1 Sodium Potassium Chloride Carbon Dioxide Anion Gap BUN Creatinine Est GFR ( Amer) Est GFR (Non-Af Amer) BUN/Creatinine Ratio Glucose Lactic Acid Calcium Total Bilirubin AST ALT Alkaline Phosphatase Troponin I C-Reactive Protein B-Natriuretic Peptide 53 Total Protein Albumin Globulin Albumin/Globulin Ratio Lipase TSH Urine Color Urine Appearance Urine pH Ur Specific [place] Urine Protein Urine Ketones Urine Blood Urine Nitrate Urine Bilirubin Urine Urobilinogen Ur Leukocyte Esterase Urine Glucose Blood Type AB Positive Antibody Screen Negative Crossmatch See Detail 04/29/17 04/29/17 04/29/17 23:04 23:04 23:04 WBC 18.8 H RBC 2.55 L Hgb 8.0 L Hct 25 L MCV 97 MCH 32 H MCHC 33 RDW 14 Plt Count 362 MPV 9 Neut % (Auto) 74.7 Lymph % (Auto) 17.6 L [place] % (Auto) 6.4 Eos % (Auto) 0.8 Baso % (Auto) 0.5 Absolute Neuts (auto) 14.1 H Absolute Lymphs (auto) 3.3 Absolute Monos (auto) 1.2 H Absolute Eos (auto) 0.1 Absolute Basos (auto) 0.1 Absolute Nucleated RBC 0.02 Nucleated RBC % 0.1 Normal RBC Morphology Basophilic Stippling Spherocytes INR (Anticoag Therapy) APTT Sodium 139 Potassium 3.7 Chloride 95 L Carbon Dioxide 41 H* Anion Gap 3 BUN 12 Creatinine 0.64 Est GFR ( Amer) 120.5 Est GFR (Non-Af Amer) 93.7 BUN/Creatinine Ratio 18.8 Glucose 145 H Lactic Acid 0.9 Calcium 9.4 Total Bilirubin 0.10 L AST 23 ALT 24 Alkaline Phosphatase 34 Troponin I 0.01 C-Reactive Protein < 1.00 B-Natriuretic Peptide Total Protein 5.8 L Albumin 3.8 Globulin 2.0 Albumin/Globulin Ratio 1.9 Lipase 61 TSH 3.37 Urine Color Urine Appearance Urine pH Ur Specific [place] Urine Protein Urine Ketones Urine Blood Urine Nitrate Urine Bilirubin Urine Urobilinogen Ur Leukocyte Esterase Urine Glucose Blood Type Antibody Screen Crossmatch 04/30/17 04/30/17 04/30/17 06:35 07:00 14:40 WBC 18.7 H RBC 2.68 L Hgb 8.3 L 7.2 L Hct 26 L 23 L MCV 96 MCH 31 MCHC 32 RDW 14 Plt Count 347 MPV 10 Neut % (Auto) 56.8 Lymph % (Auto) 33.1 [place] % (Auto) 7.7 Eos % (Auto) 1.6 Baso % (Auto) 0.8 Absolute Neuts (auto) 10.6 H Absolute Lymphs (auto) 6.2 H Absolute Monos (auto) 1.4 H Absolute Eos (auto) 0.3 Absolute Basos (auto) 0.2 Absolute Nucleated RBC 0.03 Nucleated RBC % 0.2 Normal RBC Morphology Basophilic Stippling Spherocytes INR (Anticoag Therapy) APTT Sodium Potassium Chloride Carbon Dioxide Anion Gap BUN Creatinine Est GFR ( Amer) Est GFR (Non-Af Amer) BUN/Creatinine Ratio Glucose Lactic Acid Calcium Total Bilirubin AST ALT Alkaline Phosphatase Troponin I C-Reactive Protein B-Natriuretic Peptide Total Protein Albumin Globulin Albumin/Globulin Ratio Lipase TSH Urine Color Yellow Urine Appearance Clear Urine pH 6.0 Ur Specific [place] 1.027 Urine Protein Negative Urine Ketones Negative Urine Blood Negative Urine Nitrate Negative Urine Bilirubin Negative Urine Urobilinogen Negative Ur Leukocyte Esterase Negative Urine Glucose Negative Blood Type Antibody Screen Crossmatch 05/01/17 05/01/17 05/01/17 05:24 05:24 08:25 WBC 11.2 H RBC 2.03 L Hgb 6.4 L* 7.0 L Hct 20 L 22 L MCV 98 H MCH 31 MCHC 32 RDW 14 Plt Count 291 MPV 10 Neut % (Auto) 60.2 Lymph % (Auto) 28.4 [place] % (Auto) 8.8 Eos % (Auto) 1.9 Baso % (Auto) 0.7 Absolute Neuts (auto) 6.8 Absolute Lymphs (auto) 3.2 Absolute Monos (auto) 1.0 H Absolute Eos (auto) 0.2 Absolute Basos (auto) 0.1 Absolute Nucleated RBC 0.01 Nucleated RBC % 0.1 Normal RBC Morphology Not Reportable Basophilic Stippling 2+ Spherocytes 2+ INR (Anticoag Therapy) APTT Sodium 138 Potassium 4.0 Chloride 102 Carbon Dioxide 32 Anion Gap 4 BUN 5 L Creatinine 0.57 Est GFR ( Amer) 137.8 Est GFR (Non-Af Amer) 107.1 BUN/Creatinine Ratio 8.8 Glucose 83 Lactic Acid Calcium 8.5 L Total Bilirubin AST ALT Alkaline Phosphatase Troponin I C-Reactive Protein B-Natriuretic Peptide Total Protein Albumin Globulin Albumin/Globulin Ratio Lipase TSH Urine Color Urine Appearance Urine pH Ur Specific [place] Urine Protein Urine Ketones Urine Blood Urine Nitrate Urine Bilirubin Urine Urobilinogen Ur Leukocyte Esterase Urine Glucose Blood Type Antibody Screen Crossmatch 05/01/17 19:18 WBC RBC Hgb 11.7 L Hct 35 MCV MCH MCHC RDW Plt Count MPV Neut % (Auto) Lymph % (Auto) [place] % (Auto) Eos % (Auto) Baso % (Auto) Absolute Neuts (auto) Absolute Lymphs (auto) Absolute Monos (auto) Absolute Eos (auto) Absolute Basos (auto) Absolute Nucleated RBC Nucleated RBC % Normal RBC Morphology Basophilic Stippling Spherocytes INR (Anticoag Therapy) APTT Sodium Potassium Chloride Carbon Dioxide Anion Gap BUN Creatinine Est GFR ( Amer) Est GFR (Non-Af Amer) BUN/Creatinine Ratio Glucose Lactic Acid Calcium Total Bilirubin AST ALT Alkaline Phosphatase Troponin I C-Reactive Protein B-Natriuretic Peptide Total Protein Albumin Globulin Albumin/Globulin Ratio Lipase TSH Urine Color Urine Appearance Urine pH Ur Specific [place] Urine Protein Urine Ketones Urine Blood Urine Nitrate Urine Bilirubin Urine Urobilinogen Ur Leukocyte Esterase Urine Glucose Blood Type Antibody Screen Crossmatch Assess/Plan/Problems-Billing Assessment: Patient is a 61yo female who has end stage COPD and a GI bleed who is not a candidate for EGD and is responding well to transfusions. Patient is interested in hospice care, but is not willing to be a DNR at this time. - Patient Problems (1) Upper GI bleed Current Visit: Yes Status: Acute Code(s): K92.2 - GASTROINTESTINAL HEMORRHAGE, UNSPECIFIED SNOMED Code(s): 76447372 Comment: No BMs in last 2 days to assess for melena. Latest Hemoglobin 8.2 Patient feels much better. Will retransfuse for Hemoglobin below 7. Appreciate GI consult. Transitioned to Omeprazole 40mg PO BID. Will continue to monitor H/H daily. (2) Advanced COPD Current Visit: No Status: Acute Code(s): J44.9 - CHRONIC OBSTRUCTIVE PULMONARY DISEASE, UNSPECIFIED SNOMED Code(s): 28024336 Comment: Advanced disease with oxygen dependency and cachexia. Continue home therapy including resuming chronic daily prednisone at 5mg. Appreciate palliative care consult, will consider hospice but would like to go hame and would not like to be DNR/DNI at this time. (3) DVT prophylaxis Current Visit: No Status: Acute Code(s): FLG3127 - SNOMED Code(s): 758705208 Comment: Pharmacologic prophylaxis held, SCDs as tolerated. (4) Smoker Current Visit: No Status: Chronic Priority: Medium Code(s): F17.200 - NICOTINE DEPENDENCE, UNSPECIFIED, UNCOMPLICATED SNOMED Code(s): 42716705 Comment: Patient continues to smoke occasionally and acknowledges that it is detrimental to her pulmonary status and may contribute to her recurrent hospitalizations. (5) Chronic pain Current Visit: No Status: Acute Code(s): G89.29 - OTHER CHRONIC PAIN SNOMED Code(s): 44073231 Comment: Continue home pain medications. (6) Dental infection Current Visit: Yes Status: Acute Code(s): K04.7 - PERIAPICAL ABSCESS WITHOUT SINUS SNOMED Code(s): 114878874 Comment: Continue Bactrim to prevent inflammatory response from ongoing dental infection (7) Decubital ulcer Current Visit: Yes Status: Acute Code(s): L89.90 - PRESSURE ULCER OF UNSPECIFIED SITE, UNSPECIFIED STAGE SNOMED Code(s): 496024573 Comment: On bilateral elbows from tripod position. Medihoney with Bandaid and ABD pad cushion per wound care, appreciate input. Status and Disposition: Patient is admitted inpatient. Will Discharge when medically stable.
[2017-05-03] MEDS: Omeprazole CAP* 20 MG PO SCH (18:01)
[2017-05-03] MEDS: PROCHLORPERAZINE INJ 5 MG/ML 2 ML VIAL IV PRN (22:43)
[2017-05-04] MEDS: Diazepam TAB(*) 5 MG PO PRN ×2 (04:52→22:56)
[2017-05-04 05:51] LABS: Add Diff/Slide Review? Slide Review Added; Comments Flag Yes; Hematocrit 21 % (35-47); Hemoglobin 6.9 g/dl (12.0-16.0); Mean Corpuscular HGB Conc 33 g/dl (31-36); Mean Corpuscular Hemoglobin 31 pg (27-31); Mean Corpuscular Volume 94 fL (80-97); Red Blood Count 2.21 10^6/ul (4.0-5.4); Red Cell Distribution Width 14 % (10.5-15); White Blood Count 12.1 10^3/ul (3.5-10.8)
[2017-05-04] MEDS: Omeprazole CAP* 20 MG PO SCH (06:11)
[2017-05-04 06:50] LABS: BUN/Creatinine Ratio 41.8 (8-20); Calcium 8.6 mg/dL (8.6-10.3); EGFR African American 143.6 (>60); EGFR Non-African American 111.6 (>60); Potassium 4.3 mmol/L (3.5-5.0)
[2017-05-04] MEDS: HYDROcodone/ACETAMIN 5-325 MG* 1 TAB PO PRN ×3 (07:47→17:51)
[2017-05-04] MEDS: Multivitamins/Minerals TAB PO SCH (07:47)
[2017-05-04] MEDS: Metoprolol Succinate XL TAB* 25 MG PO SCH (07:47)
[2017-05-04] MEDS: Sulfamethox/Trimethoprim DS 800/160* TAB PO SCH ×2 (07:48→20:26)
[2017-05-04] MEDS: predniSONE TAB* 5 MG PO SCH (07:48)
[2017-05-04] MEDS: Fluticasone NASAL SPRAY 50MCG* 16 gm SPRAY BTL BOTH NARES SCH (07:48)
[2017-05-04] MEDS: guaiFENesin ER TAB 600 MG PO SCH ×2 (07:48→20:26)
[2017-05-04] MEDS: Nystatin SUSPENSION* 100000 UNITS/ML 5 ML UDC PO SCH ×4 (07:49→20:26)
[2017-05-04] MEDS: Pregabalin CAP(*) 50 MG PO SCH ×3 (07:49→20:26)
[2017-05-04] MEDS: Tiotropium CAP.INH* CAP.INH/18 MCG (USE ORDER SET !) INH SCH (08:50)
[2017-05-04] MEDS: PTO: Budesonide/Formote 160/4.5(NF) MDI INH SCH ×2 (08:54→19:30)
[2017-05-04] MEDS: Levalbuterol HFA INHALER* 1 PUFF MDI INH PRN (08:57)
[2017-05-04] MEDS: Pantoprazole IV* 80 MG in NS 0.9% 250 ML* 250 ML IVPB SCH ×2 (12:23→22:31)
[2017-05-04] MEDS: Polyethylene Glycol 3350* 17 GM PACKET PO PRN (14:48)
[2017-05-04] MEDS ORDERED: Saline NASAL DROPS 0.65%* 1 DROP BTL BOTH NARES PRN (15:14)
--- NOTE | 2017-05-04 16:08 | PN ---
Subjective Date of Service: 05/04/17 Interval History: Patient had a drop in Hemoglobin to 6.9 overnight without hematemesis, melena or hematochezia. No other obvious signs of bleeding. No dizziness, CP, increased SOB. 2 units ordered. Discussed patient's prognosis with patient's family. Discussed the short expected lifespan for a patient with end stage COPD and GI bleed without the chance for definitive intervention. Estimated lifespan at 6 months and suggested reconsideration of hospice. Patient and family were very distraught at this being how short her lifespan was. Discussed DNR/DNI with patient and family. Patient and Family state that they understand that it is unlikely that CPR would be effective and that it would be unlikely that she could be weaned off a ventilator if intubated. Patient still unwilling to commit to signing DNR. Later met with patient and CAP family independence case manager and patient seemed even more adamant in pursuing life sustaining measures. Requested pulmonology consult for additional ideas on prolonging life and optimizing treatment. Family History: Unchanged from Admission Social History: Unchanged from Admission Past Medical History: Unchanged from Admission Objective Active Medications: Acetaminophen (Tylenol Tab*) 650 mg PO Q6H PRN PRN Reason: pain/fever Hydrocodone Bitart/Acetaminophen ([place] 5-325 Tab*) 1 tab PO Q4H PRN PRN Reason: PAIN Last Admin: 05/04/17 12:23 Dose: 1 tab Budesonide/Formoterol Fumarate (Symbicort 160/4.5 (Nf)) 2 puff INH BID [facility] PRN Reason: Protocol Last Admin: 05/04/17 08:54 Dose: 2 puff Cetirizine HCl (Zyrtec*) 10 mg PO DAILY PRN PRN Reason: Allergy Symptoms Diazepam (Valium Tab(*)) 2.5 mg PO QID PRN PRN Reason: ANXIETY Fluticasone Propionate (Flonase Nasal [place] 50mcg*) 2 spray BOTH NARES DAILY [facility] Last Admin: 05/04/17 07:48 Dose: 2 spray Guaifenesin (Mucinex*) 600 mg PO BID [facility] Last Admin: 05/04/17 07:48 Dose: 600 mg Pantoprazole Sodium 80 mg/ (Sodium Chloride) 250 mls @ 25 mls/hr IVPB Q10H [facility] Last Admin: 10/09/17 12:23 Dose: 25 mls/hr Levalbuterol HCl (Xopenex 1.25 Mg/0.5 Ml Neb.Gabriela*) 1.25 mg INH Q4H PRN PRN Reason: Dyspnea/Wheezing Levalbuterol HCl (Xopenex Hfa Inhaler*) 2 puff INH Q4H PRN PRN Reason: SHORTNESS OF BREATH Last Admin: 05/04/17 08:57 Dose: 2 puff Metoprolol Succinate (Toprol Xl Tab*) 25 mg PO DAILY [facility] Last Admin: 05/04/17 07:47 Dose: 25 mg Multivitamins/Minerals (Theragran/Minerals Tab*) 1 tab PO DAILY [facility] Last Admin: 05/04/17 07:47 Dose: 1 tab Nystatin (Nystatin Suspension*) 500,000 units PO QID [facility] Stop: 05/10/17 09:58 Last Admin: 05/04/17 12:23 Dose: 500,000 units Polyethylene Glycol/Electrolytes (Miralax*) 17 gm PO QPM PRN PRN Reason: CONSTIPATION Last Admin: 05/04/17 14:48 Dose: 17 gm Prednisone (Deltasone Tab*) 5 mg PO DAILY [facility] Last Admin: 05/04/17 07:48 Dose: 5 mg Pregabalin (Lyrica Cap(*)) 50 mg PO TID [facility] Last Admin: 05/04/17 14:43 Dose: 50 mg Prochlorperazine Edisylate (Compazine Inj*) 5 mg IV Q6H PRN PRN Reason: NAUSEA/VOMITING Last Admin: 05/03/17 22:43 Dose: 5 mg Sodium Chloride (Sodium Chloride 0.65% Nasal Drops*) 1 drop BOTH NARES Q4H PRN PRN Reason: Allergy Symptoms Tiotropium [place] (Spiriva Cap.Inh*) 1 cap INH DAILY [facility] Last Admin: 05/04/17 08:50 Dose: 1 cap Trimethoprim/Sulfamethoxazole (Bactrim Ds 800/160 Tab*) 1 tab PO BID [facility] Last Admin: 05/04/17 07:48 Dose: 1 tab Vital Signs 05/03/17 05/03/17 05/03/17 16:01 16:11 18:12 Temperature 97.4 F Pulse Rate 96 Respiratory 18 20 20 Rate Blood Pressure 113/57 (mmHg) O2 Sat by Pulse 100 Oximetry 05/03/17 05/03/17 05/03/17 19:17 19:40 20:11 Temperature 98.4 F Pulse Rate 107 Respiratory 16 20 22 Rate Blood Pressure 114/63 (mmHg) O2 Sat by Pulse 100 Oximetry 05/03/17 05/03/17 05/03/17 21:50 22:46 23:42 Temperature 99.0 F Pulse Rate 123 Respiratory 20 20 16 Rate Blood Pressure 116/58 (mmHg) O2 Sat by Pulse 99 Oximetry 05/03/17 05/04/17 05/04/17 23:50 00:46 03:00 Temperature 97.6 F Pulse Rate 107 Respiratory 20 20 16 Rate Blood Pressure 108/49 (mmHg) O2 Sat by Pulse 100 Oximetry 05/04/17 05/04/17 05/04/17 04:52 06:52 07:35 Temperature 98.3 F Pulse Rate Respiratory 21 20 20 Rate Blood Pressure 135/90 (mmHg) O2 Sat by Pulse 96 Oximetry 05/04/17 05/04/17 05/04/17 07:47 07:49 08:00 Temperature Pulse Rate Respiratory 20 20 20 Rate Blood Pressure (mmHg) O2 Sat by Pulse Oximetry 05/04/17 05/04/17 05/04/17 08:58 09:47 09:49 Temperature Pulse Rate 106 Respiratory 22 20 20 Rate Blood Pressure (mmHg) O2 Sat by Pulse 100 Oximetry 05/04/17 05/04/17 05/04/17 11:24 12:23 14:23 Temperature 98.3 F Pulse Rate 105 Respiratory 20 18 20 Rate Blood Pressure 129/65 (mmHg) O2 Sat by Pulse 100 Oximetry 05/04/17 05/04/17 14:43 15:20 Temperature 98.4 F Pulse Rate 111 Respiratory 18 Rate Blood Pressure 101/63 (mmHg) O2 Sat by Pulse 99 Oximetry Oxygen Devices in Use Now: - - 3L Appearance: Patient is an emaciated 61yo woman who appears much older than stated age sitting in tripod position on the bed with moderate difficulty breathing. Eyes: No Scleral Icterus, PERRLA Ears/Nose/Mouth/Throat: Clear Oropharnyx, Mucous Membranes Moist, - - Poor Dental hygeine with several broken teeth but no signs of active infection or gum disease. Neck: NL Appearance and Movements; NL JVP, Trachea Midline Respiratory: Symmetrical Chest Expansion and Respiratory Effort, - - Severely diminished lung sounds. Mild expiratory wheezes and prolonged expiratory phase. Cardiovascular: NL Sounds; No Murmurs; No JVD, RRR, No Edema, - - Muffled Abdominal: NL Sounds; No Tenderness; No Distention, No Hepatosplenomegaly Lymphatic: No Cervical Adenopathy Extremities: No Edema Skin: No Rash or Ulcers, No Nodules or Sclerosis Neurological: Alert and Oriented x 3 Result Diagrams: 05/04/17 04:24 05/04/17 04:24 Additional Lab and Data: Lab Results 04/29/17 04/29/17 04/29/17 Range/Units 23:04 23:04 23:04 WBC (3.5-10.8) 10^3/ul RBC (4.0-5.4) 10^6/ul Hgb (12.0-16.0) g/dl Hct (35-47) % MCV (80-97) fL MCH (27-31) pg MCHC (31-36) g/dl RDW (10.5-15) % Plt Count (150-450) 10^3/ul MPV (7.4-10.4) um3 Neut % (Auto) (38-83) % Lymph % (Auto) (25-47) % [place] % (Auto) (1-9) % Eos % (Auto) (0-6) % Baso % (Auto) (0-2) % Absolute Neuts (auto) (1.5-7.7) 10^3/ul Absolute Lymphs (auto) (1.0-4.8) 10^3/ul Absolute Monos (auto) (0-0.8) 10^3/ul Absolute Eos (auto) (0-0.6) 10^3/ul Absolute Basos (auto) (0-0.2) 10^3/ul Absolute Nucleated RBC 10^3/ul Nucleated RBC % Sodium 139 (133-145) mmol/L Potassium 3.7 (3.5-5.0) mmol/L Chloride 95 L (101-111) mmol/L Carbon Dioxide Pending Anion Gap Pending BUN 12 (6-24) mg/dL Creatinine 0.64 (0.51-0.95) mg/dL Est GFR ( Amer) 120.5 (>60) Est GFR (Non-Af Amer) 93.7 (>60) BUN/Creatinine Ratio 18.8 (8-20) Glucose 145 H (70-100) mg/dL Lactic Acid (0.5-2.0) mmol/L Calcium 9.4 (8.6-10.3) mg/dL Total Bilirubin 0.10 L (0.2-1.0) mg/dL AST 23 (13-39) U/L ALT 24 (7-52) U/L Alkaline Phosphatase 34 (34-104) U/L Troponin I 0.01 (<0.04) ng/mL C-Reactive Protein < 1.00 (< 5.00) mg/L B-Natriuretic Peptide 53 ( - 100) pg/mL Total Protein 5.8 L (6.4-8.9) g/dL Albumin 3.8 (3.2-5.2) g/dL Globulin 2.0 (2-4) g/dL Albumin/Globulin Ratio 1.9 (1-3) Lipase 61 (11.0-82.0) U/L TSH Pending Blood Type AB Positive Antibody Screen Pending 04/29/17 04/29/17 Range/Units 23:04 23:04 WBC 18.8 H (3.5-10.8) 10^3/ul RBC 2.55 L (4.0-5.4) 10^6/ul Hgb 8.0 L (12.0-16.0) g/dl Hct 25 L (35-47) % MCV 97 (80-97) fL MCH 32 H (27-31) pg MCHC 33 (31-36) g/dl RDW 14 (10.5-15) % Plt Count 362 (150-450) 10^3/ul MPV 9 (7.4-10.4) um3 Neut % (Auto) 74.7 (38-83) % Lymph % (Auto) 17.6 L (25-47) % [place] % (Auto) 6.4 (1-9) % Eos % (Auto) 0.8 (0-6) % Baso % (Auto) 0.5 (0-2) % Absolute Neuts (auto) 14.1 H (1.5-7.7) 10^3/ul Absolute Lymphs (auto) 3.3 (1.0-4.8) 10^3/ul Absolute Monos (auto) 1.2 H (0-0.8) 10^3/ul Absolute Eos (auto) 0.1 (0-0.6) 10^3/ul Absolute Basos (auto) 0.1 (0-0.2) 10^3/ul Absolute Nucleated RBC 0.02 10^3/ul Nucleated RBC % 0.1 Sodium (133-145) mmol/L Potassium (3.5-5.0) mmol/L Chloride (101-111) mmol/L Carbon Dioxide Anion Gap BUN (6-24) mg/dL Creatinine (0.51-0.95) mg/dL Est GFR ( Amer) (>60) Est GFR (Non-Af Amer) (>60) BUN/Creatinine Ratio (8-20) Glucose (70-100) mg/dL Lactic Acid 0.9 (0.5-2.0) mmol/L Calcium (8.6-10.3) mg/dL Total Bilirubin (0.2-1.0) mg/dL AST (13-39) U/L ALT (7-52) U/L Alkaline Phosphatase (34-104) U/L Troponin I (<0.04) ng/mL C-Reactive Protein (< 5.00) mg/L B-Natriuretic Peptide ( - 100) pg/mL Total Protein (6.4-8.9) g/dL Albumin (3.2-5.2) g/dL Globulin (2-4) g/dL Albumin/Globulin Ratio (1-3) Lipase (11.0-82.0) U/L TSH Blood Type Antibody Screen 04/29/17 04/29/17 04/29/17 23:04 23:04 23:04 WBC RBC Hgb Hct MCV MCH MCHC RDW Plt Count MPV Neut % (Auto) Lymph % (Auto) [place] % (Auto) Eos % (Auto) Baso % (Auto) Absolute Neuts (auto) Absolute Lymphs (auto) Absolute Monos (auto) Absolute Eos (auto) Absolute Basos (auto) Absolute Nucleated RBC Nucleated RBC % Normal RBC Morphology Basophilic Stippling Spherocytes INR (Anticoag Therapy) 0.89 APTT 26.1 Sodium Potassium Chloride Carbon Dioxide Anion Gap BUN Creatinine Est GFR ( Amer) Est GFR (Non-Af Amer) BUN/Creatinine Ratio Glucose Lactic Acid Calcium Total Bilirubin AST ALT Alkaline Phosphatase Troponin I C-Reactive Protein B-Natriuretic Peptide 53 Total Protein Albumin Globulin Albumin/Globulin Ratio Lipase TSH Urine Color Urine Appearance Urine pH Ur Specific [place] Urine Protein Urine Ketones Urine Blood Urine Nitrate Urine Bilirubin Urine Urobilinogen Ur Leukocyte Esterase Urine Glucose Blood Type AB Positive Antibody Screen Negative Crossmatch See Detail 04/29/17 04/29/17 04/29/17 23:04 23:04 23:04 WBC 18.8 H RBC 2.55 L Hgb 8.0 L Hct 25 L MCV 97 MCH 32 H MCHC 33 RDW 14 Plt Count 362 MPV 9 Neut % (Auto) 74.7 Lymph % (Auto) 17.6 L [place] % (Auto) 6.4 Eos % (Auto) 0.8 Baso % (Auto) 0.5 Absolute Neuts (auto) 14.1 H Absolute Lymphs (auto) 3.3 Absolute Monos (auto) 1.2 H Absolute Eos (auto) 0.1 Absolute Basos (auto) 0.1 Absolute Nucleated RBC 0.02 Nucleated RBC % 0.1 Normal RBC Morphology Basophilic Stippling Spherocytes INR (Anticoag Therapy) APTT Sodium 139 Potassium 3.7 Chloride 95 L Carbon Dioxide 41 H* Anion Gap 3 BUN 12 Creatinine 0.64 Est GFR ( Amer) 120.5 Est GFR (Non-Af Amer) 93.7 BUN/Creatinine Ratio 18.8 Glucose 145 H Lactic Acid 0.9 Calcium 9.4 Total Bilirubin 0.10 L AST 23 ALT 24 Alkaline Phosphatase 34 Troponin I 0.01 C-Reactive Protein < 1.00 B-Natriuretic Peptide Total Protein 5.8 L Albumin 3.8 Globulin 2.0 Albumin/Globulin Ratio 1.9 Lipase 61 TSH 3.37 Urine Color Urine Appearance Urine pH Ur Specific [place] Urine Protein Urine Ketones Urine Blood Urine Nitrate Urine Bilirubin Urine Urobilinogen Ur Leukocyte Esterase Urine Glucose Blood Type Antibody Screen Crossmatch 04/30/17 04/30/17 04/30/17 06:35 07:00 14:40 WBC 18.7 H RBC 2.68 L Hgb 8.3 L 7.2 L Hct 26 L 23 L MCV 96 MCH 31 MCHC 32 RDW 14 Plt Count 347 MPV 10 Neut % (Auto) 56.8 Lymph % (Auto) 33.1 [place] % (Auto) 7.7 Eos % (Auto) 1.6 Baso % (Auto) 0.8 Absolute Neuts (auto) 10.6 H Absolute Lymphs (auto) 6.2 H Absolute Monos (auto) 1.4 H Absolute Eos (auto) 0.3 Absolute Basos (auto) 0.2 Absolute Nucleated RBC 0.03 Nucleated RBC % 0.2 Normal RBC Morphology Basophilic Stippling Spherocytes INR (Anticoag Therapy) APTT Sodium Potassium Chloride Carbon Dioxide Anion Gap BUN Creatinine Est GFR ( Amer) Est GFR (Non-Af Amer) BUN/Creatinine Ratio Glucose Lactic Acid Calcium Total Bilirubin AST ALT Alkaline Phosphatase Troponin I C-Reactive Protein B-Natriuretic Peptide Total Protein Albumin Globulin Albumin/Globulin Ratio Lipase TSH Urine Color Yellow Urine Appearance Clear Urine pH 6.0 Ur Specific [place] 1.027 Urine Protein Negative Urine Ketones Negative Urine Blood Negative Urine Nitrate Negative Urine Bilirubin Negative Urine Urobilinogen Negative Ur Leukocyte Esterase Negative Urine Glucose Negative Blood Type Antibody Screen Crossmatch 05/01/17 05/01/17 05/01/17 05:24 05:24 08:25 WBC 11.2 H RBC 2.03 L Hgb 6.4 L* 7.0 L Hct 20 L 22 L MCV 98 H MCH 31 MCHC 32 RDW 14 Plt Count 291 MPV 10 Neut % (Auto) 60.2 Lymph % (Auto) 28.4 [place] % (Auto) 8.8 Eos % (Auto) 1.9 Baso % (Auto) 0.7 Absolute Neuts (auto) 6.8 Absolute Lymphs (auto) 3.2 Absolute Monos (auto) 1.0 H Absolute Eos (auto) 0.2 Absolute Basos (auto) 0.1 Absolute Nucleated RBC 0.01 Nucleated RBC % 0.1 Normal RBC Morphology Not Reportable Basophilic Stippling 2+ Spherocytes 2+ INR (Anticoag Therapy) APTT Sodium 138 Potassium 4.0 Chloride 102 Carbon Dioxide 32 Anion Gap 4 BUN 5 L Creatinine 0.57 Est GFR ( Amer) 137.8 Est GFR (Non-Af Amer) 107.1 BUN/Creatinine Ratio 8.8 Glucose 83 Lactic Acid Calcium 8.5 L Total Bilirubin AST ALT Alkaline Phosphatase Troponin I C-Reactive Protein B-Natriuretic Peptide Total Protein Albumin Globulin Albumin/Globulin Ratio Lipase TSH Urine Color Urine Appearance Urine pH Ur Specific [place] Urine Protein Urine Ketones Urine Blood Urine Nitrate Urine Bilirubin Urine Urobilinogen Ur Leukocyte Esterase Urine Glucose Blood Type Antibody Screen Crossmatch 05/01/17 19:18 WBC RBC Hgb 11.7 L Hct 35 MCV MCH MCHC RDW Plt Count MPV Neut % (Auto) Lymph % (Auto) [place] % (Auto) Eos % (Auto) Baso % (Auto) Absolute Neuts (auto) Absolute Lymphs (auto) Absolute Monos (auto) Absolute Eos (auto) Absolute Basos (auto) Absolute Nucleated RBC Nucleated RBC % Normal RBC Morphology Basophilic Stippling Spherocytes INR (Anticoag Therapy) APTT Sodium Potassium Chloride Carbon Dioxide Anion Gap BUN Creatinine Est GFR ( Amer) Est GFR (Non-Af Amer) BUN/Creatinine Ratio Glucose Lactic Acid Calcium Total Bilirubin AST ALT Alkaline Phosphatase Troponin I C-Reactive Protein B-Natriuretic Peptide Total Protein Albumin Globulin Albumin/Globulin Ratio Lipase TSH Urine Color Urine Appearance Urine pH Ur Specific [place] Urine Protein Urine Ketones Urine Blood Urine Nitrate Urine Bilirubin Urine Urobilinogen Ur Leukocyte Esterase Urine Glucose Blood Type Antibody Screen Crossmatch Assess/Plan/Problems-Billing Assessment: Patient is a 61yo female who has end stage COPD and a GI bleed who is not a candidate for EGD and is responding well to transfusions. Patient is interested in hospice care, but is not willing to be a DNR at this time. - Patient Problems (1) Upper GI bleed Current Visit: Yes Status: Acute Code(s): K92.2 - GASTROINTESTINAL HEMORRHAGE, UNSPECIFIED SNOMED Code(s): 24084980 Comment: No BMs in last 3 days to assess for melena. Latest Hemoglobin 6.9 Patient denies new symptoms. 2 units PRBC ordered and transfusing. Will recheck H/H after transfusion Appreciate GI consult. Transitioned to Omeprazole 40mg PO BID yesterday, restarted Protonix Drip today. Will continue to monitor H/H daily. (2) Advanced COPD Current Visit: No Status: Acute Code(s): J44.9 - CHRONIC OBSTRUCTIVE PULMONARY DISEASE, UNSPECIFIED SNOMED Code(s): 57981658 Comment: Advanced disease with oxygen dependency and cachexia. Continue home therapy including resuming chronic daily prednisone at 5mg. Appreciate palliative care consult. Patient states that she wants absolutely everything done to aid in prolonging her life. Pulmonary consulted for reccomendations. (3) Smoker Current Visit: No Status: Chronic Priority: Medium Code(s): F17.200 - NICOTINE DEPENDENCE, UNSPECIFIED, UNCOMPLICATED SNOMED Code(s): 35645224 Comment: Patient continues to smoke occasionally and acknowledges that it is detrimental to her pulmonary status and may contribute to her recurrent hospitalizations. (4) Chronic pain Current Visit: No Status: Acute Code(s): G89.29 - OTHER CHRONIC PAIN SNOMED Code(s): 12488944 Comment: Continue home pain medications. (5) Dental infection Current Visit: Yes Status: Acute Code(s): K04.7 - PERIAPICAL ABSCESS WITHOUT SINUS SNOMED Code(s): 531582232 Comment: Continue Bactrim to prevent inflammatory response from ongoing dental infection (6) Chronic hypercapnic respiratory failure Current Visit: Yes Status: Acute Comment: On home O2 at 3L, no current need for increase in O2 requirement. (7) Decubital ulcer Current Visit: Yes Status: Acute Code(s): L89.90 - PRESSURE ULCER OF UNSPECIFIED SITE, UNSPECIFIED STAGE SNOMED Code(s): 402871039 Comment: Unstageable due to eschar. On bilateral elbows from tripod position. Medihoney with Bandaid and ABD pad cushion per wound care, appreciate input. Stable without change. No signs of active infection. (8) DVT prophylaxis Current Visit: No Status: Acute Code(s): ULW2393 - SNOMED Code(s): 979534701 Comment: Pharmacologic prophylaxis held, SCDs as tolerated. Status and Disposition: Patient is admitted inpatient. Will Discharge when medically stable.
[2017-05-04] MEDS: PROCHLORPERAZINE INJ 5 MG/ML 2 ML VIAL IV PRN (17:50)
[2017-05-04 20:17] LABS: Hematocrit 29 % (35-47); Hemoglobin 9.9 g/dl (12.0-16.0)
--- NOTE | 2017-05-04 22:08 | CONS ---
PULMONARY CONSULTATION REPORT: DATE OF CONSULT: 05/04/17 CONSULTATION REQUESTED BY: QUIAT Arnold. REASON FOR CONSULTATION: Evaluation of COPD and evaluation for possible hospice. HISTORY OF PRESENT ILLNESS: The patient is a 61-year-old female, current smoker with significant smoking history, advanced COPD on home O2, who presents for evaluation of dark stools, found to have upper GI bleed. The patient has been receiving blood transfusions to maintain her hemoglobin. She has 4 units ordered so far, receiving the 4th unit today. Her hemoglobin is still on the lower end. The patient was evaluated for possible hospice placement and pulmonary consultation was requested to evaluate her underlying lung disease. The patient was seen and examined at bedside. The patient reported significant dyspnea. She has chronic dyspnea on exertion with minimal exertion. The patient also has been chronically steroid dependent for her COPD. The patient also reports recurrent bronchitis. The patient was hospitalized in [place] in June 2016. The patient reports her pulmonary condition has significantly worsened since then. The patient also reports chronic productive cough. PAST MEDICAL HISTORY: 1. Advanced COPD, on home O2 and chronic prednisone. 2. Severe anxiety. 3. Right elbow decubitus. 4. Degenerative joint disease. 5. Osteoporosis. 6. Peripheral neuropathy. 7. Hypertension. 8. Chronic tachycardia. PAST SURGICAL HISTORY: 1. Status post C-spine fusion. 2. Lumbar laminectomy. 3. Status post cataract surgery. 4. Status post . 5. Status post nasal septoplasty. 6. Status post tubal ligation. 7. Status post right ovarian cyst resection. 8. Status post tonsillectomy. 9. Appendectomy. 10. Cholecystectomy. 11. Benign thyroid cyst resection. MEDICATIONS: At home: 1. 5 mg of prednisone. 2. Aspirin. 3. Budesonide and formoterol. 4. Zyrtec. 5. Xopenex. 6. Metoprolol. 7. Omeprazole. 8. MiraLAX. 9. Lyrica. 10. Bactrim DS. 11. Spiriva. 12. Guaianesin. 13. Vicodin. 14. Diazepam. 15. Aspirin. ALLERGIES: CEPHALEXIN, VANCOMYCIN, BUPROPION, METRONIDAZOLE, LEVOFLOXACIN, FLUTICASONE, SOLU-MEDROL, and LORAZEPAM. FAMILY HISTORY: The patient is adopted and not aware of her family history. SOCIAL HISTORY: Significant smoking history with 35-pack years, still continues to smoke at home. Second-hand smoking also present. The patient lives at home with her son. No history of alcohol or drug abuse. REVIEW OF SYSTEMS: All 14 systems were reviewed and as per HPI. PHYSICAL EXAM: The patient is sitting up in tripod position, in respiratory distress, using her accessory muscles. Vital Signs: Temperature 98.4, pulse 104 beats per minute, respiratory rate 22, oral sat 99% on 2 L, blood pressure 101/63. HEENT: Pupils equal and reactive to light, mucous membranes moist. Respiratory: Diminished air entry bilaterally. Scattered expiratory wheeze present. Cardiovascular: S1, S2 present. Tachycardic. Abdomen: Soft, nontender, nondistended. Bowel sounds present. Extremities: Normal range of motion. No edema. Skin: No rash or bruits. DIAGNOSTIC STUDIES/LAB DATA: Hemoglobin low at 6.9, hematocrit 21, WBC count 12.1, platelet count 330,000. INR 0.89, PTT 26.1. Sodium 140, potassium 4.3, chloride 98, bicarb 41, BUN 23, creatinine 0.55. Chest x-ray, evidence of hyperinflation, no acute airspace opacities. IMPRESSION AND RECOMMENDATIONS: 61-year-old female, current smoker with significant smoking history with possible severe chronic obstructive pulmonary disease and history of recurrent chronic bronchitis, admitted for management of acute upper GI bleed. In regards to her chronic obstructive pulmonary disease, she could not keep her outpatient followup appointments with me. She had multiple appointments made in the office to continue followup of her chronic obstructive pulmonary disease. She is on chronic prednisone, has been requiring intermittent increased dose of prednisone, but is recently discharged after being treated for acute chronic obstructive pulmonary disease exacerbation on tapering doses of prednisone. The patient appears cachectic likely secondary to systemic inflammation from underlying chronic obstructive pulmonary disease. The patient never had pulmonary function testing done to assess her chronic obstructive pulmonary disease. She only has pulse oximetry in 2014 that showed hypoxemia; however, without need for O2 supplementation. She has been steroid dependent and still symptomatic. She is on right medications for her chronic obstructive pulmonary disease. She understands her disease is advanced at this point. She might have had GI bleed due to prednisone. She is not willing to consider hospice even though she has good insight of her condition. The patient prefers to go home even though she understands that she might not have more than 6 months to live at this point given her underlying systemic disease and might end up with exacerbation and hospitalization She has agreed to quit smoking however is concerned with second hand smoke exposure at home Thank you for allowing me to participate in the care of your patient. Please let me know if I could be of any help in her management. [id number]/CPS #: [id number] CHARISSA
[2017-05-05] MEDS: HYDROcodone/ACETAMIN 5-325 MG* 1 TAB PO PRN ×3 (00:29→17:58)
[2017-05-05 05:24] LABS: Hematocrit 27 % (35-47); Hemoglobin 9.4 g/dl (12.0-16.0); Mean Corpuscular HGB Conc 34 g/dl (31-36); Mean Corpuscular Hemoglobin 31 pg (27-31); Mean Corpuscular Volume 90 fL (80-97); Mean Platelet Volume 8 um3 (7.4-10.4); Red Blood Count 3.04 10^6/ul (4.0-5.4); Red Cell Distribution Width 17 % (10.5-15); White Blood Count 13.7 10^3/ul (3.5-10.8)
[2017-05-05 05:48] LABS: BUN/Creatinine Ratio 56.5 (8-20); Calcium 8.5 mg/dL (8.6-10.3); EGFR African American 176.4 (>60); EGFR Non-African American 137.2 (>60); Potassium 4.4 mmol/L (3.5-5.0)
[2017-05-05] MEDS: Diazepam TAB(*) 5 MG PO PRN ×3 (05:56→17:51)
[2017-05-05] MEDS: Nystatin SUSPENSION* 100000 UNITS/ML 5 ML UDC PO SCH ×4 (08:31→20:10)
[2017-05-05] MEDS: Multivitamins/Minerals TAB PO SCH (08:35)
[2017-05-05] MEDS: Sulfamethox/Trimethoprim DS 800/160* TAB PO SCH ×2 (08:35→20:09)
[2017-05-05] MEDS: Pregabalin CAP(*) 50 MG PO SCH ×3 (08:35→20:09)
[2017-05-05] MEDS: predniSONE TAB* 5 MG PO SCH (08:36)
[2017-05-05] MEDS: guaiFENesin ER TAB 600 MG PO SCH ×2 (08:36→20:09)
[2017-05-05] MEDS: Fluticasone NASAL SPRAY 50MCG* 16 gm SPRAY BTL BOTH NARES SCH (08:36)
[2017-05-05] MEDS: Metoprolol Succinate XL TAB* 25 MG PO SCH (08:36)
[2017-05-05] MEDS: Tiotropium CAP.INH* CAP.INH/18 MCG (USE ORDER SET !) INH SCH (09:12)
[2017-05-05] MEDS: Levalbuterol HFA INHALER* 1 PUFF MDI INH PRN ×2 (09:12→17:40)
[2017-05-05] MEDS: PTO: Budesonide/Formote 160/4.5(NF) MDI INH SCH ×2 (09:14→21:12)
[2017-05-05] MEDS: Pantoprazole IV* 80 MG in NS 0.9% 250 ML* 250 ML IVPB SCH ×2 (09:32→20:15)
--- NOTE | 2017-05-05 10:33 | PN ---
Subjective Date of Service: 05/05/17 Interval History: Patient seen and examined at bedside. Denies fever, chills, chest discomfort, N/ V/D. Pt states that she had a "black stool" this AM. Pt states that her breathing is at her baseline amount of shortness of breath. Pt states that it is easier to breath in the "Tripod" position. Pt states that she isn't using the Ventolin inhaler in her hand, that she feels better holding it in her hand. Pt states that she is tolerating a soft diet. Pt is requesting Mucinex and saline nasal spray. Tele: Sinus tach, rate 100-110's. Family History: Unchanged from Admission Social History: Unchanged from Admission Past Medical History: Unchanged from Admission Objective Active Medications: Acetaminophen (Tylenol Tab*) 650 mg PO Q6H PRN Reason: pain/fever Hydrocodone Bitart/Acetaminophen ([place] 5-325 Tab*) 1 tab PO Q4H PRN Reason: PAIN Budesonide/Formoterol Fumarate (Symbicort 160/4.5 (Nf)) 2 puff INH BID ISI Cetirizine HCl (Zyrtec*) 10 mg PO DAILY PRN Reason: Allergy Symptoms Diazepam (Valium Tab(*)) 2.5 mg PO QID PRN Reason: ANXIETY Fluticasone Propionate (Flonase Nasal [place] 50mcg*) 2 spray BOTH NARES DAILY ISI Guaifenesin (Mucinex*) 600 mg PO BID ISI Pantoprazole Sodium 80 mg/ (Sodium Chloride) 250 mls @ 25 mls/hr IVPB Q10H ISI Levalbuterol HCl (Xopenex 1.25 Mg/0.5 Ml Neb.Gabriela*) 1.25 mg INH Q4H PRN Reason: Dyspnea/Wheezing Levalbuterol HCl (Xopenex Hfa Inhaler*) 2 puff INH Q4H PRN Reason: SHORTNESS OF BREATH Metoprolol Succinate (Toprol Xl Tab*) 25 mg PO DAILY ISI Multivitamins/Minerals (Theragran/Minerals Tab*) 1 tab PO DAILY ISI Nystatin (Nystatin Suspension*) 500,000 units PO QID ISI Stop: 05/10/17 09:58 Polyethylene Glycol/Electrolytes (Miralax*) 17 gm PO QPM PRN Reason: CONSTIPATION Prednisone (Deltasone Tab*) 5 mg PO DAILY [facility] Pregabalin (Lyrica Cap(*)) 50 mg PO TID [facility] Prochlorperazine Edisylate (Compazine Inj*) 5 mg IV Q6H PRN Reason: NAUSEA/ VOMITING Sodium Chloride (Sodium Chloride 0.65% Nasal Drops*) 1 drop BOTH NARES Q4H PRN Reason: Allergy Symptoms Tiotropium [place] (Spiriva Cap.Inh*) 1 cap INH DAILY [facility] Trimethoprim/Sulfamethoxazole (Bactrim Ds 800/160 Tab*) 1 tab PO BID [facility] Vital Signs 05/04/17 05/04/17 05/04/17 11:24 12:23 14:23 Temperature 98.3 F Pulse Rate 105 Respiratory 20 18 20 Rate Blood Pressure 129/65 (mmHg) O2 Sat by Pulse 100 Oximetry 05/04/17 05/04/17 05/04/17 14:43 15:20 16:43 Temperature 98.4 F Pulse Rate 111 Respiratory 18 20 Rate Blood Pressure 101/63 (mmHg) O2 Sat by Pulse 99 Oximetry 05/04/17 05/04/17 05/04/17 17:51 19:32 19:51 Temperature Pulse Rate Respiratory 20 18 16 Rate Blood Pressure (mmHg) O2 Sat by Pulse 98 Oximetry 05/04/17 05/04/17 05/04/17 19:56 20:00 20:26 Temperature 98.0 F Pulse Rate 108 Respiratory 16 16 16 Rate Blood Pressure 113/57 (mmHg) O2 Sat by Pulse 99 Oximetry 05/04/17 05/04/17 05/04/17 22:08 22:56 23:14 Temperature 97.6 F Pulse Rate 106 Respiratory 16 16 18 Rate Blood Pressure 115/54 (mmHg) O2 Sat by Pulse 98 Oximetry 05/05/17 05/05/17 05/05/17 04:04 05:56 07:30 Temperature 99.2 F 98.2 F Pulse Rate 103 100 Respiratory 16 16 20 Rate Blood Pressure 102/58 105/73 (mmHg) O2 Sat by Pulse 100 97 Oximetry 05/05/17 09:16 Temperature Pulse Rate 90 Respiratory 18 Rate Blood Pressure (mmHg) O2 Sat by Pulse 92 Oximetry Oxygen Devices in Use Now: Nasal Cannula - 3L Appearance: NAD, sitting up in bed in a tripod position Eyes: - - Small amount of swelling noted to right eye, non painful Ears/Nose/Mouth/Throat: Mucous Membranes Moist Respiratory: Symmetrical Chest Expansion and Respiratory Effort, Clear to Auscultation - , diminished Cardiovascular: NL Sounds; No Murmurs; No JVD, RRR - , tachy Extremities: No Edema Skin: - - Dressing to bilateral elbows clean, dry and intact. Neurological: Alert and Oriented x 3, NL Muscle Strength and Tone Lines/Tubes/Other Access: Clean, Dry and Intact Peripheral IV - site benign Nutrition: Taking PO's Result Diagrams: 05/05/17 05:11 05/05/17 05:12 Additional Lab and Data: Assess/Plan/Problems-Billing Assessment: Ms. Martin is a 61yo female who has end stage COPD and a GI bleed who is not a candidate for EGD and is responding well to transfusions. Patient is interested in hospice care, but is not willing to be a DNR at this time. - Patient Problems (1) Upper GI bleed Code(s): K92.2 - GASTROINTESTINAL HEMORRHAGE, UNSPECIFIED SNOMED Code(s): 40740589 Comment: - BMs this AM reported as "black". - Appreciate GI consult. - HH stable after 2 units of PRBCs yesterday and a total of 4 units. - Continue Protonix Drip. - Will continue to monitor H/H daily. - Will check another stool for occult blood and orthostatic VS. (2) Advanced COPD Code(s): J44.9 - CHRONIC OBSTRUCTIVE PULMONARY DISEASE, UNSPECIFIED SNOMED Code(s): 74414179 Comment: - Advanced disease with oxygen dependency and cachexia. - Appreciate palliative care consult. Patient states that she wants absolutely everything done to aid in prolonging her life. - Pulmonary consulted, input appreciated. - Continue home therapy including chronic daily prednisone at 5mg. (3) Tobacco abuse Code(s): Z72.0 - TOBACCO USE SNOMED Code(s): 487129773 Comment: - Patient continues to smoke occasionally and acknowledges that it is detrimental to her pulmonary status and may be contributing to her recurrent hospitalizations. - Pt states she is done smoking. (4) Chronic pain Code(s): G89.29 - OTHER CHRONIC PAIN SNOMED Code(s): 08136291 Comment: - Continue Lyrica and [place]. (5) Dental infection Code(s): K04.7 - PERIAPICAL ABSCESS WITHOUT SINUS SNOMED Code(s): 120756668 Comment: - Continue Bactrim to prevent inflammatory response from ongoing dental infection. (6) Chronic hypercapnic respiratory failure Comment: - On home O2 at 3L, no current need for increase in O2 requirement. (7) Decubital ulcer Code(s): L89.90 - PRESSURE ULCER OF UNSPECIFIED SITE, UNSPECIFIED STAGE SNOMED Code(s): 097588167 Comment: - Unstageable due to eschar. - On bilateral elbows from tripod position. Medihoney with Bandaid and ABD pad cushion per wound care, appreciate input. - Stable without change. No signs of active infection. (8) DVT prophylaxis Code(s): JQK2938 - SNOMED Code(s): 286298276 Comment: - Chemical DVT prophylaxis contraindicated in the setting of a GI bleed. - SCDs as tolerated. (9) Full code status Code(s): Z78.9 - OTHER SPECIFIED HEALTH STATUS SNOMED Code(s): 712134517 Status and Disposition: Inpatient. Discharge to home when medically stable.
[2017-05-05] MEDS ORDERED: Morphine INJ* 2 MG/ML 1 ML SYRINGE (TWO MG - NEW SYRINGE VERSION) ONE ×2 (21:59→22:28)
[2017-05-05] MEDS ORDERED: NS 0.9% 1000 ML* 1,000 ML IV ONE (22:00)
[2017-05-05] MEDS: Morphine INJ* 2 MG/ML 1 ML SYRINGE (TWO MG - NEW SYRINGE VERSION) IV PRN ×2 (22:03→22:33)
[2017-05-05 22:22] LABS: Hematocrit 18 % (35-47)
[2017-05-05 22:23] LABS: Comments Flag Yes
[2017-05-05 22:25] LABS: Hemoglobin 5.6 g/dl (12.0-16.0)
--- NOTE | 2017-05-05 22:51 | PN ---
Progress Note - Progress Note Date of Service: 05/05/17 Note: Called to bedside by primary RN after patient had large bloody bowel movement and become lethargic and tachypneic. On arrival, patient found to be a cachectic female sitting on toilet to weak to stand. Patient transitioned to bed and back to a tripod position, her position of comfort given her end stage COPD. Vitals showed SBP 100, HR 130, SPO2 > 90%. 1 L IV fluid bolus started. Patient given low dose morphine IV for work up breathing. H/H checked and found Hgb to be 5.6. Two units of PRBC ordered. Plan of care reviewed at length of patient. Discussed risks and benefits of mechanical ventilation and CPR given advanced COPD. Patient agreed that she did not want to be intubated and that she did not want to resuscitated should her heart stop or she were to stop breathing. As this was a change from previous statements, I reviewed this at length over the phone with her son, Devin who was in agreement. Plan to continue supportive care with PRBC, morphine, O2 etc as noted. MOLST form completed.
[2017-05-05] MEDS: NS 0.9% 1000 ML* 1,000 ML IV SCH (23:05)
[2017-05-06] MEDS: PROCHLORPERAZINE INJ 5 MG/ML 2 ML VIAL IV PRN (03:58)
[2017-05-06] MEDS: Morphine INJ* 2 MG/ML 1 ML SYRINGE (TWO MG - NEW SYRINGE VERSION) IV PRN (05:17)
[2017-05-06] MEDS: NS 0.9% 1000 ML* 1,000 ML IV SCH (05:47)
[2017-05-06] MEDS: Pantoprazole IV* 80 MG in NS 0.9% 250 ML* 250 ML IVPB SCH (06:27)
[2017-05-06 06:46] LABS: Hematocrit 30 % (35-47); Hemoglobin 10.1 g/dl (12.0-16.0); Mean Corpuscular HGB Conc 33 g/dl (31-36); Mean Corpuscular Hemoglobin 30 pg (27-31); Mean Corpuscular Volume 91 fL (80-97); Mean Platelet Volume 9 um3 (7.4-10.4); Red Blood Count 3.34 10^6/ul (4.0-5.4); Red Cell Distribution Width 15 % (10.5-15); White Blood Count 36.1 10^3/ul (3.5-10.8)
[2017-05-06 06:52] LABS: Comments Flag Yes
[2017-05-06 06:53] LABS: Add Diff/Slide Review? Slide Review Added
[2017-05-06 07:00] LABS: BUN/Creatinine Ratio 68.9 (8-20); Calcium 7.9 mg/dL (8.6-10.3); EGFR African American 101.9 (>60); EGFR Non-African American 79.3 (>60)
[2017-05-06 07:03] LABS: Potassium 5.2 mmol/L (3.5-5.0)
[2017-05-06 08:08] VITALS: BP 88/36
[2017-05-06 08:54] LABS: Immature Granulocytes 9 % (0-9); Metamyelocytes % 2 % (0-2); Myelocytes % 2 % (0-1); Neutrophil % 82 % (38-83); RBC Morphology Normal (Normal)
[2017-05-06] MEDS: Tiotropium CAP.INH* CAP.INH/18 MCG (USE ORDER SET !) INH SCH (09:25)
[2017-05-06] MEDS: PTO: Budesonide/Formote 160/4.5(NF) MDI INH SCH (09:25)
--- NOTE | 2017-05-06 09:41 | PN ---
Subjective Date of Service: 05/06/17 Interval History: Patient seen and examined at bedside. Pt's sons are at bedside. Discussed the prognosis with the family, they would like to transition to comfort measure. Pt is unresponsive, appears to have mild labored breathing. Noted events of last night when it appears Pt had a repeat GI bleed and received 2 units of PRBCs. Family History: Unchanged from Admission Social History: Unchanged from Admission Past Medical History: Unchanged from Admission Objective Active Medications: Acetaminophen (Tylenol Tab*) 650 mg PO Q6H PRN Reason: pain/fever Hydrocodone Bitart/Acetaminophen ([place] 5-325 Tab*) 1 tab PO Q4H PRN Reason: PAIN Budesonide/Formoterol Fumarate (Symbicort 160/4.5 (Nf)) 2 puff INH BID ISI Cetirizine HCl (Zyrtec*) 10 mg PO DAILY PRN Reason: Allergy Symptoms Diazepam (Valium Tab(*)) 2.5 mg PO QID PRN Reason: ANXIETY Fluticasone Propionate (Flonase Nasal [place] 50mcg*) 2 spray BOTH NARES DAILY ISI Guaifenesin (Mucinex*) 600 mg PO BID ISI Pantoprazole Sodium 80 mg/ (Sodium Chloride) 250 mls @ 25 mls/hr IVPB Q10H ISI Sodium Chloride ([place] 0.9% 1000 Ml*) 1,000 mls @ 100 mls/hr IV PER RATE ISI Levalbuterol HCl (Xopenex 1.25 Mg/0.5 Ml Neb.Gabriela*) 1.25 mg INH Q4H PRN Reason: Dyspnea/Wheezing Levalbuterol HCl (Xopenex Hfa Inhaler*) 2 puff INH Q4H PRN Reason: SHORTNESS OF BREATH Metoprolol Succinate (Toprol Xl Tab*) 25 mg PO DAILY ISI Morphine Sulfate (Morphine Inj (Syringe)*) 2 mg IV Q1H PRN Reason: SHORTNESS OF BREATH Multivitamins/Minerals (Theragran/Minerals Tab*) 1 tab PO DAILY ISI Nystatin (Nystatin Suspension*) 500,000 units PO QID ISI Stop: 05/10/17 09:58 Polyethylene Glycol/Electrolytes (Miralax*) 17 gm PO QPM PRN Reason: CONSTIPATION Prednisone (Deltasone Tab*) 5 mg PO DAILY [facility]I Pregabalin (Lyrica Cap(*)) 50 mg PO TID [facility] Prochlorperazine Edisylate (Compazine Inj*) 5 mg IV Q6H PRN Reason: NAUSEA/ VOMITING Sodium Chloride (Sodium Chloride 0.65% Nasal Drops*) 1 drop BOTH NARES Q4H PRN Reason: Allergy Symptoms Tiotropium [place] (Spiriva Cap.Inh*) 1 cap INH DAILY [facility] Trimethoprim/Sulfamethoxazole (Bactrim Ds 800/160 Tab*) 1 tab PO BID [facility] Vital Signs 05/05/17 05/05/17 05/05/17 10:33 11:19 11:42 Temperature 98.5 F Pulse Rate 104 106 Respiratory 20 20 Rate Blood Pressure 105/37 113/63 (mmHg) O2 Sat by Pulse 100 100 Oximetry 05/05/17 05/05/17 05/05/17 12:07 12:09 12:10 Temperature Pulse Rate 106 109 111 Respiratory Rate Blood Pressure 113/63 116/69 124/70 (mmHg) O2 Sat by Pulse 100 100 98 Oximetry 05/05/17 05/05/17 05/05/17 13:02 15:13 15:25 Temperature 97.6 F Pulse Rate 124 Respiratory 20 20 20 Rate Blood Pressure 112/62 (mmHg) O2 Sat by Pulse 98 Oximetry 05/05/17 05/05/17 05/05/17 19:21 19:51 19:58 Temperature 96.6 F Pulse Rate 140 Respiratory 28 28 28 Rate Blood Pressure 104/44 (mmHg) O2 Sat by Pulse 98 Oximetry 05/05/17 05/05/17 05/05/17 20:00 20:09 21:30 Temperature Pulse Rate 140 Respiratory 28 28 28 Rate Blood Pressure 104/44 (mmHg) O2 Sat by Pulse 98 Oximetry 05/05/17 05/05/17 05/06/17 23:55 23:58 00:15 Temperature 97.5 F 97.5 F 98.1 F Pulse Rate 137 137 135 Respiratory 36 36 32 Rate Blood Pressure 96/53 96/53 95/51 (mmHg) O2 Sat by Pulse 100 100 100 Oximetry 05/06/17 05/06/17 05/06/17 02:25 02:55 03:15 Temperature 98.6 F 98.4 F 97.6 F Pulse Rate 132 136 140 Respiratory 24 28 28 Rate Blood Pressure 124/58 129/56 123/51 (mmHg) O2 Sat by Pulse 100 100 100 Oximetry 05/06/17 05/06/17 05/06/17 05:16 05:17 05:50 Temperature 96.3 F Pulse Rate 156 Respiratory 40 40 40 Rate Blood Pressure 127/60 (mmHg) O2 Sat by Pulse 100 Oximetry 05/06/17 05/06/17 05/06/17 06:00 07:59 08:00 Temperature 97.7 F Pulse Rate 156 136 Respiratory 36 36 Rate Blood Pressure 127/60 88/36 (mmHg) O2 Sat by Pulse 100 95 Oximetry Oxygen Devices in Use Now: - - Oximask, 3L Appearance: Sitting up in bed, chronically ill appearing Eyes: - - Mild periorbital edema Respiratory: - - Lung sounds diminished, with rhonchi in upper airway. Tachypnea Cardiovascular: NL Sounds; No Murmurs; No JVD, RRR Extremities: - - Generalized edema Neurological: - - Non responsive Lines/Tubes/Other Access: Clean, Dry and Intact Peripheral IV - site benign Result Diagrams: 05/06/17 06:41 05/06/17 06:41 Additional Lab and Data: Microbiology and Other Data: Microbiology 05/05/17 18:45 Stool Occult Blood (LELE) - Final Stool Assess/Plan/Problems-Billing Assessment: Ms. Martin is a 61yo female who has end stage COPD and a GI bleed who is not a candidate for EGD and is responding well to transfusions. Patient is interested in hospice care, but is not willing to be a DNR at this time. - Patient Problems (1) Upper GI bleed Code(s): K92.2 - GASTROINTESTINAL HEMORRHAGE, UNSPECIFIED SNOMED Code(s): 11282615 Comment: - Large soft "black" stools last evening. - Appreciate GI consult. - HH down to 5.6/18 last evening and received 2 units of PRBCs and a total of 6 units. - Change to Protonix IV. - Family has decided on comfort care (2) Advanced COPD Code(s): J44.9 - CHRONIC OBSTRUCTIVE PULMONARY DISEASE, UNSPECIFIED SNOMED Code(s): 83980308 Comment: - Advanced disease with oxygen dependency and cachexia. - Appreciate palliative care consult. Patient agreable to DNR/DNI last evening - Pulmonary consulted, input appreciated. - Continue home therapy including chronic daily prednisone at 5mg. (3) Tobacco abuse Code(s): Z72.0 - TOBACCO USE SNOMED Code(s): 329957436 Comment: - Patient continues to smoke occasionally and acknowledges that it is detrimental to her pulmonary status and may be contributing to her recurrent hospitalizations. - Pt states she is done smoking. (4) Chronic pain Code(s): G89.29 - OTHER CHRONIC PAIN SNOMED Code(s): 14915044 Comment: (5) Dental infection Code(s): K04.7 - PERIAPICAL ABSCESS WITHOUT SINUS SNOMED Code(s): 386214585 Comment: - Continue Bactrim to prevent inflammatory response from ongoing dental infection. (6) Chronic hypercapnic respiratory failure Comment: - On home O2 at 3L, no current need for increase in O2 requirement. (7) Decubital ulcer Code(s): L89.90 - PRESSURE ULCER OF UNSPECIFIED SITE, UNSPECIFIED STAGE SNOMED Code(s): 472059642 Comment: - Unstageable due to eschar. - On bilateral elbows from tripod position. Medihoney with Bandaid and ABD pad cushion per wound care, appreciate input. - Stable without change. No signs of active infection. (8) DVT prophylaxis Code(s): DCW0305 - SNOMED Code(s): 503357143 Comment: - Chemical DVT prophylaxis contraindicated in the setting of a GI bleed. - SCDs as tolerated. (9) Full code status Code(s): Z78.9 - OTHER SPECIFIED HEALTH STATUS SNOMED Code(s): 245238824 Status and Disposition: Inpatient. Plan for comfort care at this point. I do not suspect the patient will survive to discharge.
[2017-05-06] MEDS: Nystatin SUSPENSION* 100000 UNITS/ML 5 ML UDC PO SCH (10:30)
[2017-05-06] MEDS: Fluticasone NASAL SPRAY 50MCG* 16 gm SPRAY BTL BOTH NARES SCH (10:30)
[2017-05-06] MEDS: Metoprolol Succinate XL TAB* 25 MG PO SCH (10:30)
[2017-05-06] MEDS: Multivitamins/Minerals TAB PO SCH (10:30)
[2017-05-06] MEDS: predniSONE TAB* 5 MG PO SCH (10:30)
[2017-05-06] MEDS: Sulfamethox/Trimethoprim DS 800/160* TAB PO SCH (10:30)
[2017-05-06] MEDS: guaiFENesin ER TAB 600 MG PO SCH (10:30)
[2017-05-06] MEDS: Pregabalin CAP(*) 50 MG PO SCH (10:30)
[2017-05-06] MEDS ORDERED: Morphine ORAL CONCENTRATE* 5 MG/0.25 ML ORAL.SYRIN SL PRN (10:34)
[2017-05-06] MEDS ORDERED: Atropine 1% (ORAL/SL)* 15 ML BTL SL PRN (10:35)
--- NOTE | 2017-05-06 12:37 | CONSULT ---
Palliative / Hospice Consult Ordering Provider: Ira Watson - Subjective Code Status: DNR Advance Directives Location: In Chart MOLST Part A Completed: Yes - DNR MOLST Part E Completed:: Yes - DNI HCP Completed: - Nakul Hinton - History or Present Illness History or Present Illness: This 61 year old woman is hospitalized again for end-stage COPD, on this occasion complicated by GI bleeding. She was seen by me in September 2016 when she was admitted for COPD exacerbation but she was at that time, and remained, ambivalent about her code status and hospice services. She was on hospice services in December of this year and was even admitted to [facility] residence, but as she improved there she decided to sign off hospice and return home. She has been using prednisone chronically in addition to her other respiratory medications, and has developed significant GI bleeding with need for transfusions. GI consult concluded that she was not a candidate for GI investigative procedures due to her precarious pulmonary status. She has now agreed to DNR/DNI status. Lab Values: Abnormal Lab Results 05/04/17 05/05/17 05/06/17 04:24 22:13 05:59 WBC RBC Hgb 5.6 L* Hct 18 L MCV MCH MCHC RDW Plt Count MPV Immature Gran % (Auto) Neut % (Auto) Lymph % (Auto) Store[place] % (Auto) Eos % (Auto) Baso % (Auto) Absolute Neuts (auto) Absolute Lymphs (auto) Absolute Monos (auto) Absolute Eos (auto) Absolute Basos (auto) Absolute Nucleated RBC Neutrophils % Band Neutrophils % Lymphocytes % Monocytes % Metamyelocytes % Myelocytes % Nucleated RBC % Nucleated RBCs/100 WBC Normal RBC Morphology Sodium Potassium Chloride Carbon Dioxide Anion Gap BUN Creatinine Est GFR ( Amer) Est GFR (Non-Af Amer) BUN/Creatinine Ratio Glucose POC Glucose (mg/dL) 184 H Calcium Blood Type AB Positive Antibody Screen Negative Crossmatch See Detail 05/06/17 05/06/17 06:41 06:41 WBC 36.1 H RBC 3.34 L Hgb 10.1 L Hct 30 L MCV 91 MCH 30 MCHC 33 RDW 15 Plt Count 189 MPV 9 Immature Gran % (Auto) 9 Neut % (Auto) 84.5 H Lymph % (Auto) 6.5 L Storey % (Auto) 8.2 Eos % (Auto) 0.1 Baso % (Auto) 0.7 Absolute Neuts (auto) 30.5 H Absolute Lymphs (auto) 2.3 Absolute Monos (auto) 3.0 H Absolute Eos (auto) 0.1 Absolute Basos (auto) 0.3 H Absolute Nucleated RBC 0.08 Neutrophils % 82 Band Neutrophils % 5 Lymphocytes % 4 L Monocytes % 5 Metamyelocytes % 2 Myelocytes % 2 H Nucleated RBC % 0.2 Nucleated RBCs/100 WBC 1 H Normal RBC Morphology Normal Sodium 138 Potassium 5.2 H Chloride 105 Carbon Dioxide 32 Anion Gap 1 L BUN 51 H Creatinine 0.74 Est GFR ( Amer) 101.9 Est GFR (Non-Af Amer) 79.3 BUN/Creatinine Ratio 68.9 H Glucose 196 H POC Glucose (mg/dL) Calcium 7.9 L Blood Type Antibody Screen Crossmatch Laboratory Last Values WBC 36.1 10^3/ul (3.5-10.8) H 05/06/17 06:41 RBC 3.34 10^6/ul (4.0-5.4) L 05/06/17 06:41 Hgb 10.1 g/dl (12.0-16.0) L 05/06/17 06:41 Hct 30 % (35-47) L 05/06/17 06:41 MCV 91 fL (80-97) 05/06/17 06:41 MCH 30 pg (27-31) 05/06/17 06:41 MCHC 33 g/dl (31-36) 05/06/17 06:41 RDW 15 % (10.5-15) 05/06/17 06:41 Plt Count 189 10^3/ul (150-450) 05/06/17 06:41 MPV 9 um3 (7.4-10.4) 05/06/17 06:41 Immature Gran % (Auto) 9 % (0-9) 05/06/17 06:41 Neut % (Auto) 84.5 % (38-83) H 05/06/17 06:41 Lymph % (Auto) 6.5 % (25-47) L 05/06/17 06:41 Storey % (Auto) 8.2 % (1-9) 05/06/17 06:41 Eos % (Auto) 0.1 % (0-6) 05/06/17 06:41 Baso % (Auto) 0.7 % (0-2) 05/06/17 06:41 Absolute Neuts (auto) 30.5 10^3/ul (1.5-7.7) H 05/06/17 06:41 Absolute Lymphs (auto) 2.3 10^3/ul (1.0-4.8) 05/06/17 06:41 Absolute Monos (auto) 3.0 10^3/ul (0-0.8) H 05/06/17 06:41 Absolute Eos (auto) 0.1 10^3/ul (0-0.6) 05/06/17 06:41 Absolute Basos (auto) 0.3 10^3/ul (0-0.2) H 05/06/17 06:41 Absolute Nucleated RBC 0.08 10^3/ul 05/06/17 06:41 Neutrophils % 82 % (38-83) 05/06/17 06:41 Band Neutrophils % 5 % (0-8) 05/06/17 06:41 Lymphocytes % 4 % (25-47) L 05/06/17 06:41 Monocytes % 5 % (0-13) 05/06/17 06:41 Metamyelocytes % 2 % (0-2) 05/06/17 06:41 Myelocytes % 2 % (0-1) H 05/06/17 06:41 Nucleated RBC % 0.2 05/06/17 06:41 Nucleated RBCs/100 WBC 1 (0-0) H 05/06/17 06:41 Normal RBC Morphology Normal (Normal) 05/06/17 06:41 Basophilic Stippling 2+ 05/01/17 05:24 Spherocytes 2+ 05/01/17 05:24 INR (Anticoag Therapy) 0.93 (0.89-1.11) 05/05/17 05:11 APTT 26.1 seconds (26.0-36.3) 04/29/17 23:04 Sodium 138 mmol/L (133-145) 05/06/17 06:41 Potassium 5.2 mmol/L (3.5-5.0) H 05/06/17 06:41 Chloride 105 mmol/L (101-111) 05/06/17 06:41 Carbon Dioxide 32 mmol/L (22-32) 05/06/17 06:41 Anion Gap 1 mmol/L (2-11) L 05/06/17 06:41 BUN 51 mg/dL (6-24) H 05/06/17 06:41 Creatinine 0.74 mg/dL (0.51-0.95) 05/06/17 06:41 Est GFR ( Amer) 101.9 (>60) 05/06/17 06:41 Est GFR (Non-Af Amer) 79.3 (>60) 05/06/17 06:41 BUN/Creatinine Ratio 68.9 (8-20) H 05/06/17 06:41 Glucose 196 mg/dL (70-100) H 05/06/17 06:41 POC Glucose (mg/dL) 184 mg/dL (70-100) H 05/06/17 05:59 Lactic Acid 0.9 mmol/L (0.5-2.0) 04/29/17 23:04 Calcium 7.9 mg/dL (8.6-10.3) L 05/06/17 06:41 Total Bilirubin 0.10 mg/dL (0.2-1.0) L 04/29/17 23:04 AST 23 U/L (13-39) 04/29/17 23:04 ALT 24 U/L (7-52) 04/29/17 23:04 Alkaline Phosphatase 34 U/L (34-104) 04/29/17 23:04 Troponin I 0.01 ng/mL (<0.04) 04/29/17 23:04 C-Reactive Protein < 1.00 mg/L (< 5.00) 04/29/17 23:04 B-Natriuretic Peptide 53 pg/mL (-100) 04/29/17 23:04 Total Protein 5.8 g/dL (6.4-8.9) L 04/29/17 23:04 Albumin 3.8 g/dL (3.2-5.2) 04/29/17 23:04 Globulin 2.0 g/dL (2-4) 04/29/17 23:04 Albumin/Globulin Ratio 1.9 (1-3) 04/29/17 23:04 Lipase 61 U/L (11.0-82.0) 04/29/17 23:04 TSH 3.37 mcIU/mL (0.34-5.60) 04/29/17 23:04 Urine Color Yellow 04/30/17 07:00 Urine Appearance Clear 04/30/17 07:00 Urine pH 6.0 (5-9) 04/30/17 07:00 Ur Specific [place] 1.027 (1.010-1.030) 04/30/17 07:00 Urine Protein Negative (Negative) 04/30/17 07:00 Urine Ketones Negative (Negative) 04/30/17 07:00 Urine Blood Negative (Negative) 04/30/17 07:00 Urine Nitrate Negative (Negative) 04/30/17 07:00 Urine Bilirubin Negative (Negative) 04/30/17 07:00 Urine Urobilinogen Negative (Negative) 04/30/17 07:00 Ur Leukocyte Esterase Negative (Negative) 04/30/17 07:00 Urine Glucose Negative (Negative) 04/30/17 07:00 Stool H. pylori Ag Negative (Negative) 05/01/17 18:37 Blood Type AB Positive 05/04/17 04:24 Antibody Screen Negative 05/04/17 04:24 Crossmatch See Detail 05/04/17 04:24 - Objective Active Medications: Acetaminophen (Tylenol Tab*) 650 mg PO Q6H PRN PRN Reason: pain/fever Atropine Sulfate (Atropine 1% (Oral/Sl)*) 2 drop SL Q2H PRN PRN Reason: DISCOMFORT Last Admin: 05/06/17 11:13 Dose: 2 drop Budesonide/Formoterol Fumarate (Symbicort 160/4.5 (Nf)) 2 puff INH BID ISI PRN Reason: Protocol Last Admin: 05/06/17 09:25 Dose: Not Given Levalbuterol HCl (Xopenex 1.25 Mg/0.5 Ml Neb.Gabriela*) 1.25 mg INH Q4H PRN PRN Reason: Dyspnea/Wheezing Levalbuterol HCl (Xopenex Hfa Inhaler*) 2 puff INH Q4H PRN PRN Reason: SHORTNESS OF BREATH Last Admin: 05/05/17 17:40 Dose: 2 puff Morphine Sulfate (Morphine Inj (Syringe)*) 2 mg IV Q1H PRN PRN Reason: SHORTNESS OF BREATH Last Admin: 05/06/17 05:17 Dose: 2 mg Morphine Sulfate (Morphine Oral Concentrate*) 2.5 mg SL Q2H PRN PRN Reason: PAIN Last Admin: 05/06/17 11:14 Dose: 2.5 mg Pantoprazole Sodium (Protonix Iv*) 40 mg IV BID ISI Prochlorperazine Edisylate (Compazine Inj*) 5 mg IV Q6H PRN PRN Reason: NAUSEA/VOMITING Last Admin: 05/06/17 03:58 Dose: 5 mg Sodium Chloride (Sodium Chloride 0.65% Nasal Drops*) 1 drop BOTH NARES Q4H PRN PRN Reason: Allergy Symptoms Tiotropium [place] (Spiriva Cap.Inh*) 1 cap INH DAILY ISI Last Admin: 05/06/17 09:25 Dose: Not Given Vital Signs: Vital Signs: Temp Pulse Resp BP Pulse Ox 97.7 F 136 36 88/36 95 05/06/17 07:59 05/06/17 07:59 05/06/17 11:14 05/06/17 07:59 05/06/17 07:59 Patient Weight: Weight 82 lb 1.6 oz Intake and Output: Intake & Output 05/04/17 05/05/17 05/06/17 05/07/17 06:59 06:59 06:59 06:59 Intake Total 1999 3794 3050 0 Output Total 400 300 Balance 1600 3794 2750 0 Intake: IV Fluids 714 751 PRBC 288 ns 501 protonix 426 250 Oral 2000 3080 1680 0 Packed Cells 619 Output: Urine 400 300 Other: Estimated Void Large Medium Large # Bowel Movements 0 1 1 Estimated Stool Amount Small Large Large # Voids 3 2 0 ADLs: Meal Record Start: 04/30/17 09: 53 Freq: DAILY@0900,1400,1800 Status: Active Created 04/30/17 09:53 System (Rec: 04/30/17 09:53 System TELE-M04) Document 04/30/17 14:00 [id number] (Rec: 04/30/17 15:01 [id number] TELE-C05) Document 04/30/17 18:00 [id number] (Rec: 04/30/17 21:14 ZSA6170 TELE-C03) Document 05/01/17 09:16 TVE3386 (Rec: 05/01/17 09:17 CQJ2658 TELE-C01) Document 05/01/17 14:17 IEP5515 (Rec: 05/01/17 14:17 KCA0875 TELE-C01) Document 05/01/17 18:00 UAJ0728 (Rec: 05/01/17 22:56 YUS2135 TELE-C01) Document 05/02/17 09:00 PPY0763 (Rec: 05/02/17 14:06 MZP5876 TELE-C01) Document 05/02/17 14:00 TRU2929 (Rec: 05/02/17 15:17 AUO8808 TELE-C01) Document 05/02/17 18:00 UOT6461 (Rec: 05/02/17 22:25 SLL5887 TELE-C01) Document 05/03/17 09:00 YNZ4019 (Rec: 05/03/17 09:30 XPB0895 TELE-C01) Document 05/03/17 13:50 IGO8060 (Rec: 05/03/17 13:50 ZWM6910 TELE-C09) Document 05/03/17 18:00 HKB8766 (Rec: 05/03/17 23:07 PRP9948 TELE-C01) Document 05/04/17 09:00 FKA6612 (Rec: 05/04/17 10:39 LGD0639 TELE-C13) Document 05/04/17 14:00 OXU3383 (Rec: 05/04/17 15:16 IRJ9668 TELE-C13) Document 05/04/17 18:00 GTB1205 (Rec: 05/04/17 18:08 COU8040 TELE-C01) Document 05/05/17 09:00 FLM6791 (Rec: 05/05/17 12:07 KJZ0120 TELE-C07) Document 05/05/17 14:00 CFU6220 (Rec: 05/05/17 15:03 HEP4246 TELE-C07) Document 05/05/17 18:00 OVI4266 (Rec: 05/05/17 22:30 NUA0898 TELE-C01) Document 05/06/17 09:00 AYQ4048 (Rec: 05/06/17 09:40 QHX6061 TELE-C09) Intake and Output Start: 04/29/17 22: 19 Freq: Status: Active Created 04/29/17 22:19 System (Rec: 04/29/17 22:19 System EDRM-C04) Intake and Output Start: 04/30/17 09: 53 Freq: DAILY@0600,1400,2200 Status: Active Created 04/30/17 09:53 System (Rec: 04/30/17 09:53 System TELE-M04) Document 04/30/17 14:00 CYX7549 (Rec: 04/30/17 15:01 YPQ6694 TELE-C05) Document 04/30/17 15:03 GUG3024 (Rec: 04/30/17 15:03 THL3278 TELE-M04) Document 04/30/17 22:00 QAZ1976 (Rec: 04/30/17 22:10 ZMG4161 TELE-C03) Document 05/01/17 06:00 EPU5227 (Rec: 05/01/17 06:39 CMC7963 TELE-C01) Document 05/01/17 12:57 NTG4802 (Rec: 05/01/17 12:57 LOV1752 TELE-C01) Document 05/01/17 15:25 OCK8321 (Rec: 05/01/17 15:26 DIB1523 TELE-C07) Document 05/01/17 19:15 GEL9736 (Rec: 05/01/17 19:37 EOC1538 TELE-C07) Document 05/01/17 22:00 KAL8502 (Rec: 05/01/17 22:57 QMJ2017 TELE-C01) Document 05/02/17 06:00 EHH3819 (Rec: 05/02/17 06:15 MLN4012 TELE-C34) Document 05/02/17 14:00 LIU4423 (Rec: 05/02/17 15:17 PWW9936 TELE-C01) Document 05/02/17 22:00 WOD5755 (Rec: 05/02/17 22:29 UBX9167 TELE-C01) Document 05/03/17 06:00 VOV2222 (Rec: 05/03/17 06:27 QKH3808 TELE-C34) Document 05/03/17 14:00 EUL8539 (Rec: 05/03/17 16:36 QEN9288 TELE-C01) Document 05/03/17 22:00 EEJ3917 (Rec: 05/03/17 23:10 VJH1192 TELE-C01) Document 05/04/17 06:00 GID8930 (Rec: 05/04/17 06:22 KRU3236 TELE-C01) Document 05/04/17 07:59 BXH6482 (Rec: 05/04/17 07:59 BMK2960 TELE-C13) Document 05/04/17 14:00 YIB6882 (Rec: 05/04/17 15:16 FRP8030 TELE-C13) Document 05/04/17 22:00 QBQ4903 (Rec: 05/04/17 23:02 MBJ0202 TELE-C07) Document 05/05/17 06:00 OAL4263 (Rec: 05/05/17 06:19 ARK4928 TELE-C01) Document 05/05/17 14:00 JQN0201 (Rec: 05/05/17 15:03 DYD4423 TELE-C07) Document 05/05/17 22:00 NQY0920 (Rec: 05/05/17 22:42 TJP8901 TELE-C35) Document 05/06/17 02:23 HMG9587 (Rec: 05/06/17 02:23 JTV7356 TELE-M01) Document 05/06/17 05:50 GQA6110 (Rec: 05/06/17 06:46 CXV0883 TELE-M01) General Impression: Patient lying in bed, with ashen color and unresponsive with tachypnea, Venti mask with O2 at 3.5 LPM. Head: Symmetrical Eyes: - - periorbital edema Ears/Nose/Mouth/Throat: Mucous Membranes Moist Neck: NL Appearance and Movements; NL JVP, Trachea Midline Cardiovascular: NL Sounds; No Murmurs; No JVD Respiratory: Symmetrical Chest Expansion and Respiratory Effort, - - Tachypneic , staccato breathing Abdominal: NL Sounds; No Tenderness; No Distention, No Hepatosplenomegaly Extremities: - - diffuse edema Neurological: - - unresponsive to voice and light touch - Assessment Assessment: I spent time with the patient's visitors, including her HCP, and all are aware that this patient is close to , and expect that she will during this hospitalization. She is comfortable at this time and I would simply maintain comfort measures. If she does survive to discharge we would be willing to sign her back on to hospice services at home or her destination SNF. - Plan Consult Plan (MU): Palliative - Time On Unit Date of Evaluation: 05/06/17 Hospice Consult Time in: 12:00 Hospice Consult Time Out: 12:40 Hospice Consult Time Total: 40 > 50% of Time Spend In Counseling or Coordinating Care: Yes
[2017-05-06] MEDS ORDERED: Pantoprazole IV* 40 MG IV SCH (21:00)
--- NOTE | 2017-05-07 01:56 | DS ---
CC: Dr. Madrigal * DISCHARGE SUMMARY/ NOTE: DATE OF ADMISSION: 04/30/17 DATE OF : 05/06/17 ATTENDING PHYSICIAN: Dr. Jesse Lee * (dictated by Carissa Chadwick NP). PRIMARY CARE PROVIDER: Dr. Madrigal. CONSULTATIONS WHILE IN THE HOSPITAL: Director Of Product Marketing, Dr. Nielsen. Dr. Akanksha Burdick with Pulmonology. DISCHARGE DIAGNOSES: 1. End-stage chronic obstructive pulmonary disease. 2. Gastrointestinal bleed, suspect upper source. 3. Chronic hypoxic respiratory failure. 4. Bilateral decubital ulcers of the elbows. 5. Dental infection. 6. Acute blood loss anemia. 7. Leukocytosis, suspected secondary to steroid use. HISTORY OF PRESENT ILLNESS/HOSPITAL COURSE: Ms. Martin is a 61-year-old female with past medical history significant for advanced COPD on home oxygen, osteoarthritis, osteoporosis, peripheral neuropathy, anxiety, bilateral elbow decubitus, who presented to the emergency room with complaints of weakness and black stools. It is to note that previously the patient had been admitted to [facility] from April 24 to April 26 with a COPD exacerbation. The patient stated that on the day of her discharge on April 26, she went to the bathroom and noticed black stools and was discharged home, continued to have black stools intermittently with brown stools. The patient denied any abdominal pain, but reported anorexia and intense postprandial fullness that was severely limiting her p.o. intake. The patient was seen by her primary care provider and was advised to go to the emergency room for further evaluation of her symptoms. While in the emergency room, the patient was found to have a hemoglobin of 8 and a stool guaiac that was positive and hospitalists were asked to evaluate the patient for admission. While in the hospital, the patient's aspirin was held and she had recently been on a higher dose of prednisone. This was felt to be contributing to an upper GI bleed. The patient was started on a Protonix drip. She was noted to be cachectic with a BMI of 15. It was felt that the patient's normal BUN may actually be high for her. She was admitted to the telemetry floor and it was felt at that point her COPD was stable. The patient was seen in consultation by Dr. Nielsen with Gastroenterology, who felt that the patient's etiology of her GI bleeding was unclear and could include peptic ulcer disease, a Dieulafoy's lesion, arteriovenous malformations were multifactorial given the patient's multiple comorbidities and it was felt that she had some evidence of anemia of chronic disease. It was felt that an endoscopy procedure should not be pursued at the time due to the patient's severe COPD. It was recommended that the patient be placed on high dose PPI and that if the patient developed overt hematemesis or hematochezia that they would likely need to get anesthesia to assist with an endoscopy procedure. During the patient's hospitalization, she was also seen by Dr. Lindsay Huynh with palliative care services. At that point , the patient was wanting all interventions possible to sustain her life. The patient was also seen in consultation by Dr. Burdick with Pulmonology. Dr. Burdick felt that the patient's COPD was severe in the past that the patient had been unable to keep her outpatient followup appointments. It was felt that the patient was cachectic secondary to her underlying COPD. The patient never officially had pulmonary function testing to assess her COPD disease. She only ever had a pulse oximetry in 2013 showing hypoxemia. The patient was actually doing well, although she continued to have small black stools. The patient was once trialed on off the Protonix drip and on twice daily PPI. It was felt that she was possibly having more bleeding, so she was put back on a Protonix drip. The patient was getting up and down to her commode, eating a soft diet. Last evening, she was reported to have 2 large black stools. She had an H and H checked and was found to have a hemoglobin of 5.6. The patient had a 1 L of fluid bolus initiated. The patient was given morphine for her increased work of breathing. She received 2 units of packed red blood cells overnight. By the morning the patient was unresponsive, she was tachypneic. A discussion had been had the night previous with the patient's son Devin and the patient and the son Devin agreed on a DNR/DNI status. This morning when the patient continued to be nonresponsive, a discussion about prognosis was had with the patient's son and they agreed that comfort care was the route they would like to go. The patient was transitioned off of her Protonix drip to a Protonix IV twice daily per the family's request. Her other medications were discontinued. She was started on sublingual morphine as needed and atropine as needed. Ms. Martin on 05/06/17 at 16:10. The patient had no femoral pulse, no apical pulse, was found to have no spontaneous respirations, no pupillary reflex. This is a summarized report of a complex medical history and hospital stay. For further details, please see the entire medical record. TIME SPENT: Time for this discharge summary was approximately 40 minutes. CARISSA CHADWICK, ROHITH [id number]/CPS #: [id number] CHARISSA
== END 2017-05-06 16:10 | disposition expired | DRG 253 ==
LOC: ED 21:37 → MEDTELE 04-30 07:42
PROVIDERS: ADMIT Internal Medicine; ATTEND Internal Medicine
PROC: 30233N1 Transfusion of Nonautologous Red Blood Cells into Peripheral Vein, Percutaneous Approach (ICD-10-PCS; principal; 2017-05-06)
DX: K92.2 Gastrointestinal hemorrhage, unspecified (principal); R64 Cachexia; J96.12 Chronic respiratory failure with hypercapnia; M41.9 Scoliosis, unspecified; G62.9 Polyneuropathy, unspecified; L89.019 Pressure ulcer of right elbow, unspecified stage; Z99.81 Dependence on supplemental oxygen; L89.029 Pressure ulcer of left elbow, unspecified stage; D62 Acute posthemorrhagic anemia; Z68.1 Body mass index [BMI] 19.9 or less, adult; G89.29 Other chronic pain; M54.5 Low back pain; Z88.1 Allergy status to other antibiotic agents; Z88.8 Allergy status to other drugs, medicaments and biological substances; J44.9 Chronic obstructive pulmonary disease, unspecified; K21.9 Gastro-esophageal reflux disease without esophagitis; M81.0 Age-related osteoporosis without current pathological fracture; F41.9 Anxiety disorder, unspecified; K64.9 Unspecified hemorrhoids; F17.210 Nicotine dependence, cigarettes, uncomplicated; M19.90 Unspecified osteoarthritis, unspecified site; R00.0 Tachycardia, unspecified; D72.829 Elevated white blood cell count, unspecified; K04.7 Periapical abscess without sinus; T38.0X5A Adverse effect of glucocorticoids and synthetic analogues, initial encounter; Y92.9 Unspecified place or not applicable; D63.8 Anemia in other chronic diseases classified elsewhere; Z98.41 Cataract extraction status, right eye; Z98.1 Arthrodesis status; Z66 Do not resuscitate; Z51.5 Encounter for palliative care
CPT/HCPCS: 36415; 71010; 74177; 80048; 80053; 81003; 82270; 82272; 83605; 83690; 83880; 84443; 84484; 85014; 85018; 85025; 85610; 85730; 86140; 86850; 86900; 86901; 86922; 87338; 93005; 94640; 94760; 99406; A9270-GY; J0780; J1940; J2270; J7512; P9040; Q9967